=== PATIENT | female | born 1990 | race Caucasian/White ===

== ENCOUNTER 2022-06-18 09:04 | Outpatient (CLI) | payer MEDICAID, SELFPAY ==
[2022-06-18 11:01] LABS: Albumin* 4.4 g/dL (3.3-5.0); Chloride* 104 mmol/L (96-114)
[2022-06-18 11:02] LABS: Sodium* 142 mmol/L (135-149)
[2022-06-18 11:04] LABS: Alanine Aminotransferase* 14 U/L (4-35); Alkaline Phosphatase* 111 U/L (40-150); Aspartate Amino Transferase* 29 U/L (12-35); Bilirubin Total* 0.7 mg/dL (0.1-1.5); Blood Urea Nitrogen* 10 mg/dL (5-24); Carbon Dioxide* 28 mmol/L (20-32); Cholesterol* 228 mg/dL (90-199); Creatinine* 0.9 mg/dL (0.5-1.5); Estimated Glomerular Filt Rate 87 ml/min; Glucose* 94 mg/dL (60-115); Total Protein* 7.3 g/dL (6.0-8.3); Triglycerides* 103 mg/dL (40-149)
[2022-06-18 11:05] LABS: Calcium* 8.8 mg/dL (8.4-10.6); HDL Cholesterol* 40 mg/dL (>=50); LDL Cholesterol Calculated 167 mg/dL (<100)
== END 2022-06-18 09:05 | disposition home or self-care (01) ==
PROVIDERS: PCP Family Medicine; Visit Provider Family Medicine
DX: Z01.419 Encounter for gynecological examination (general) (routine) without abnormal findings (principal); F32.A Depression, unspecified; F41.1 Generalized anxiety disorder; F52.0 Hypoactive sexual desire disorder; Z13.6 Encounter for screening for cardiovascular disorders; Z13.29 Encounter for screening for other suspected endocrine disorder
CPT/HCPCS: 80053; 80061; 84443

== ENCOUNTER 2022-09-28 10:30 | Outpatient (CLI) | payer MEDICAID, SELFPAY ==
--- OUTSIDE RECORDS SUMMARY | 2022-09-28 11:43 | XMS_ITS | Encounter Summary ---
:1990 Author [facility] Address [address] [place] [address] Care Team Providers Name Role Phone Lela Tolbert MD Primary Care Provider Encounter Details Date Type Department Care Team Description 05/20/2022 Telephone [facility] th, Jenelle Andrews G, PA-C & Sports Medicine [address] [facility] [id number] [place] [address] [place] [address] [phone] Social History Tobacco Use Types Packs/Day Years Used Date Smoking Tobacco: Former Cigarettes 0.3 Quit : 05/07/2013 Smokeless Tobacco: Never Alcohol Use Standard Drinks/Week Comments Yes 0 (1 standard drink = 0.6 oz pure alcoho l) Rare Sex Assigned at Date Recorded Not on file documented as of this encounter Nursing Notes Radha De Jesus CMA - 05/21/2022 8:25 AM CDT Received EMG nerve study. Made copy and sent to scan doc. Put paperwork in Dr. Kearney's folder Radha De Jesus CMA - 05/20/2022 4:29 PM CDT Called medical records, they tried to fax to [facility] however it kept failing. Gave [facility] fax to send. documented in this encounter Plan of Treatment Scheduled Procedures Name Priority Associated Diagnoses Date/Time RELEASE CARPAL TUNNEL Bilateral carpal tunnel sy ndrome documented as of this encounter Visit Diagnoses Not on filedocumented in this encounter Care Teams Pbx Inspector Relationship Specialty Start Date End Date Lela Tolbert MD PCP - General Family Practice 08/27/[address] [place] [id number] documented as of this encounter
--- OUTSIDE RECORDS SUMMARY | 2022-09-28 11:43 | XMS_ITS | Encounter Summary ---
:1990 Author Organization [facility] Address [address] [place] [address] Care Team Providers Name Role Phone Lela Tolbert MD Primary Care Provider Reason for Visit Reason Comments Hand Problem Encounter Details Date Type Department Care Team Description 07/28/2022 Office Visit Shantanu Piper, Deb rcare following surgery of the musculoskeletal system (Primary Dx); HDT Hand Therapy OTR/L Left carpal tunnel syndrome [address] [place] [address] [place] [phone] Social History Tobacco Use Types Packs/Day Years Used Date Smoking Tobacco: Former Cigarettes 0.3 Quit : 05/07/2013 Smokeless Tobacco: Never Alcohol Use Standard Drinks/Week Comments Yes 0 (1 standard drink = 0.6 oz pure alcoho l) Rare Sex Assigned at Date Recorded Not on file documented as of this encounter Progress Notes Shantanu Hill, OTR/L - 07/28/2022 1:30 PM CDT Hand Occupational Therapy Evaluation/Plan of Care/Discharge Summary Referring Provider: Diagnosis: Right Carpal Tunnel Syndrome. Orders: Evaluation and treatment per MD post-operative protocol. Date of Onset: 1 Year ago Cause: Unknown Date of Surgery: 07/19/22 Surgery: Right Carpal Tunnel Release. Hand Dominance: Left PMH/Precautions: Refer to EMR for past medical history, medications, and drug allergies. Pt has no past medical history on file. Occupation/Job Duties: Unemployed Leisure/Sports: Crafting, gardening, Functional Limitations: Gripping, pinching, carrying, lifting, work/leisure activities, ADLs. Functional Goals: The patient will be able to manage self-care ADLs with minimal to no difficulty in 2 weeks. The patient will be able to craft with minimal to no difficulty in 4 weeks. SUBJECTIVE: Patient is 9 days post-operative. Pt reports a sharp pain with use throughout her MF and IF, but feels that it may be due to her tight sutures. Pt notes that she also has CTS on her left hand which comes and goes, but the day of surgery the right was worse so they opted to have the surgery on this side. OBJECTIVE: Pain: Resting pain 2/10. Pain with activity 3-6/10. Description/frequency of pain: Achy with use. Location: Incision. Edema: Minimal to no swelling observed at the surgical site. Circumferential measurements in cm: Right 07/27/2022 Left 07/27/2022 Wrist 15.2 15.5 AROM: Right 07/27/2022 Left 07/27/2022 Finger AROM WNL WNL Thumb Opposition Kapandji 10 Kapandji 10 Wrist Extension/Flexion 68/51 67/61 Strength: Deferred secondary to post-operative pain/discomfort. Sensation: The patient reports their sensation is improved from pre-surgical status. Incision/Scar: The incision is closed, no drainage or discharge noted today. TODAY'S TREATMENT INTERVENTION: OT Evaluation CPT 26065 (10 minutes untimed) A Low Complexity Occupational Therapy Evaluation was completed. Occupational profile/history: brief history relating to presenting problem. Assessment: 1-3 performance deficits. Clinical decision making: limited number of treatment options. The patient was educated on the condition, planned therapy intervention, and expectations from treatment. Goals were a collaborative effort between the patient and therapist. Risks, benefits, and alternatives to treatment were explained. Patient or guardian in agreement with care plan. Therapeutic Exercise CPT 72874 (20 minutes) Exercise: Issued handout, instructed in and performed finger and thumb AROM, differential tendon glides and wrist AROM. Patient was also instructed to keep their forearm, elbow, and shoulder moving through theirnormal ROM. Issued handout and instructed in contract associate manager and pinch strengthening exercises to begin three to four weekspost operatively. Incision, Scar, and Edema Management: Sutures were removed today. The patient was instructed in and issued written information on scar mobilization with recommendations to perform 3 times per day for 3-5 minutes as soon as incision is healed. The patient was issued a scar pad to use 8 hours out of 24 hours each day. Written instructions were issued regarding scar pad wear, care and precautions. Compression sleeves were provided for edemamanagement and use with the scar pad. Education: The patient was educated on the surgical procedure, post-operative precautions, expectations from treatment and resuming activity as tolerated. Timed Code Treatment Minutes: 20 Total Treatment Minutes: 30 ASSESSMENT: Symptoms are consistent with status post carpal tunnel release. Functional limitations are due to: pain, edema, decreased strength, and post-operative healing. Rehab prognosis is good to achieve stated goals. Mood, orientation, and behavior were appropriate. No barriers to learning noted today. PLAN: Today???s treatment goals were achieved and the patient is able to progress independently towards their remaining short and long-term goals. The patient will follow up with the referring provider as directed. If no new orders in the next 30 days, discharge hand therapy. The patient was provided with the clinic number and instructed to call with any questions or concerns. Treatment Plan: AROM, strengthening, edema control, scar management, patient education and training. Therapist Signature: Shantanu Hill MS, OTR/L #[id number] Visit # 1 Payor: [facility] / Plan: [facility] PMAP / Product Type: Medicaid / documented in this encounter Plan of Treatment Scheduled Procedures Name Priority Associated Diagnoses Date/Time RELEASE CARPAL TUNNEL Bilateral carpal tunnel sy ndrome documented as of this encounter Visit Diagnoses Diagnosis Aftercare following surgery of the [facility] system - Primary Aftercare following surgery of the [facility] loskeletal system, NEC Left carpal tunnel syndrome Carpal tunnel syndrome documented in this encounter Care Teams Handle Turner Relationship Specialty Start Date End Date Lela Tolbert MD PCP - General Family Practice 08/27/[address] [place] [address] documented as of this encounter
--- OUTSIDE RECORDS SUMMARY | 2022-09-28 11:43 | XMS_ITS | Encounter Summary ---
:1990 Author Organization [facility] Address [address] [place] [address] Care Team Providers Name Role Phone Lela Tolbert MD Primary Care Provider Reason for Referral Procedure/Equipment (Routine) - Incomplete Specialty Diagnoses / Procedures Referred By Contact Refer red To Contact Diagnoses Bilateral carpal tunnel syndrome Aries Kearney MD Procedures Case Request OR - Orthopedic Surgery: LEFT WRIST CARPAL TUNNEL RELEASE [address] [place] [address] Referral ID Status Reason Start Date Expiration Date Visits V isits Requested Authorized [id number] Incomplete 08/31/2022 11/30/2023 1 1 Reason for Visit Reason Comments Post-Op Check Right Encounter Details Date Type Department Care Team Description 08/31/2022 Office Visit Aries Marcum Bilateral carpal Orthopaedics & Sports MD Emily tunnel syndrome Medicine [address] [place] (Primary Dx) [address] [place] [address] [phone] Social History Tobacco Use Types Packs/Day Years Used Date Smoking Tobacco: Former Cigarettes 0.3 Quit : 05/07/2013 Smokeless Tobacco: Never Alcohol Use Standard Drinks/Week Comments Yes 0 (1 standard drink = 0.6 oz pure alcoho l) Rare Sex Assigned at Date Recorded Not on file documented as of this encounter Patient Instructions Patient InstructionsCedric Hendricks - 08/31/2022 8:20 AM CDT Thank you for choosing [facility] for your health care visit today. Aries Kearney MD Orthopedic Surgeon Upper Extremity [facility] Advanced Imaging Scheduling: To schedule advanced imaging including MRI's, CT Scans, Ultrasounds and Fluoroscopic guided injections at a [facility] location please call [phone]. Medication Requests: Prescriptions are not filled on weekends or on weekdays after 3:00 PM. For all medication refills: Request a refill using advisorCONNECTt or contact your pharmacy. [facility] Workers[employer] [address] [place] [address] (Phone) Email: [email or web address] What is Know Your Cost? Know Your Cost is a service for patients and patient/members to call and receive personalized cost information and estimates across our care group. The phone number is (COST) Tuesday - Tuesday 8 AM to 5 PM Release of Information: Radiology/Imaging Health Information Management [address] [address] [place] [address] (Phone) [phone] (Phone) [employer] documented in this encounter Progress Notes Aries Kearney MD - 08/31/2022 8:20 AM CDT Maggie Gonzalez [id number] 1990 Date of Visit: 08/31/22 Orthopedic Hand and Upper Extremity Postop Note Chief Complaint: Postop DOS: 07/19/22, Right CTR Subjective: Maggie Gonzalez is a 32 y.o. female who presents for postoperative evaluation and follow up. Patient does still have some occasional episodes where her hands will go numb. This occurs mostly when her hands are elevated over her head she feels. She reports some soreness within her palm with certain tasks and pressure at the incision. Physical Exam: GENERAL: This is a pleasant 32 y.o. y/o female in no apparent distress. Mood and affect is normal. Alert and oriented x3. PULMONARY: non-labored breathing, symmetrical chest rise, room oxygen CARDIAC: Distal perfusion to the upper extremities is intact, normal rate MUSCULOSKELETAL: Right wrist: There is a well-healed incision within the palm. There is some scar induration and she does have some tenderness to palpation of the scar. She has intact 5/5 APB and opposition strength. Subjective sensation within the median nerve distribution today is intact. Left Wrist: Insp/Palp: Normal to inspection. No swelling. No tenderness with palpation over the wrist. Stability: No obvious instability. Strength: Extensors 5/5. Flexors 5/5. ROM: AROM: Flexion is 70deg, extension is 70 deg Special Tests: Tinels sign is equivocal at the carpal tunnel. Carpal compression test is positive. Left Hand: Insp/Palp: No deformity bilaterally, hands normal to inspection and palpation. No thenar eminence atrophy. No hypothenar eminence atrophy. Strength: Thumb abduction APB 5/5. 1st dorsal interossei 5/5. Fingers: Insp/Palp: No deformity, edema, or masses of the fingers. No tenderness or triggering of the fingers. ROM: Full ROM of the fingers. Electrodiagnostic testin03/26/2022: There is electrophysiologic evidence for mild to moderate median neuropathy on the right and left sides. There is increased onset latencies and peak latencies for the right median sensory nerve latencies. Assessment: Diagnosis and Associated Orders ICD-10-CM 1. Bilateral carpal tunnel syndrome G56.03 Plan: Maggie Gonzalez is recovering after right carpal tunnel release under MAC local. At this point in time I have encouraged Maggie that I do think her exam is appropriate. I think the scar induration in the soreness within her palm we will continue to improve over the next several weeks. I recommend continued scar massage and desensitization. She would like to consider proceeding with scheduling for her left carpal tunnel release at this time. She is unsure as to the timing of this and will plan to call my thread spinner when she has a more firm plan in mind. We would plan for Left carpal tunnel release under MAC local. Patient will plan to reach out to my thread spinner when she decides to pursue the above. A business card was provided today. All questions were invited and answered and the patient is content with the plan of care. documented in this encounter Plan of Treatment Scheduled Orders Name Type Priority Associated Diagnoses Order S [facility] 2019 Novel Coronavirus Microbiology Routine Bilateral carpal E xpected: (COVID-19) tunnel syndrome 08/31/2022, Expires: 2022 Scheduled Procedures Name Priority Associated Diagnoses Date/Time RELEASE CARPAL TUNNEL Bilateral carpal tunnel sy ndrome documented as of this encounter Visit Diagnoses Diagnosis Bilateral carpal tunnel syndrome - Prima ry Carpal tunnel syndrome documented in this encounter Care Teams Cardiovascular Technician Relationship Specialty Start Date End Date Lela Tolbert MD PCP - General Family Practice 08/27/[address] [place] [address] documented as of this encounter
--- OUTSIDE RECORDS SUMMARY | 2022-09-28 11:43 | XMS_ITS | Encounter Summary ---
:1990 Author Organization [facility] Address [address] [place] [address] Care Team Providers Name Role Phone Lela Tolbert MD Primary Care Provider Encounter Details Date Type Department Care Team Description 06/11/2022 Orders Only HIM DEPARTMENT Provider, Molina serrato MD Interface provid er interface provider, [place] [id number] Social History Tobacco Use Types Packs/Day Years Used Date Smoking Tobacco: Former Cigarettes 0.3 Quit : 05/07/2013 Smokeless Tobacco: Never Alcohol Use Standard Drinks/Week Comments Yes 0 (1 standard drink = 0.6 oz pure alcoho l) Rare Sex Assigned at Date Recorded Not on file documented as of this encounter Plan of Treatment Scheduled Procedures Name Priority Associated Diagnoses Date/Time RELEASE CARPAL TUNNEL Bilateral carpal tunnel sy ndrome documented as of this encounter Procedures Procedure Name Priority Date/Time Associated Diagnosis Comme nts EMG SCAN 06/11/2022 Results for thi s procedure are in the resu lts section. documented in this encounter Results EMG SCAN (06/11/2022) Narrative This result has an attachment that is no t available. Interface Provider [employer] documented in this encounter Visit Diagnoses Not on filedocumented in this encounter Care Teams Radio Electronics Officer Relationship Specialty Start Date End Date Lela Tolbert MD PCP - General Family Practice 08/27/[address] [place] [id number] documented as of this encounter
--- OUTSIDE RECORDS SUMMARY | 2022-09-28 11:43 | XMS_ITS | Encounter Summary ---
:1990 [facility] Address [address] [place] [address] Care Team Providers Name Role Phone Lela Tolbert MD Primary Care Provider Encounter Details Date Type Department Care Team Description 07/13/2022 Notes/Orders TRIAries Archer MD Orthopaedics & Sports [address] [facility] [id number] [place] [address] [place] [address] [phone] Social History Tobacco Use Types Packs/Day Years [...] on filedocumented in this encounter Care Teams Supply Chain Technician Relationship Specialty Start Date End Date Lela Tolbert MD PCP - General Family Practice 08/27/[address] [id number] documented as of this encounter
--- OUTSIDE RECORDS SUMMARY | 2022-09-28 11:43 | XMS_ITS | Encounter Summary ---
:[address] [facility] Address [address] [place] [address] Care Team Providers Name Role Phone Lela Tolbert MD Primary Care Provider Encounter Details Date Type Department Care Team Description 05/28/2022 Orders Only HIM DEPARTMENT Provider, Molina serrato MD Interface provid er interface provider, [place] [address] Social History Tobacco Use Types Packs/Day Years [...] Date/Time Associated Diagnosis Comme nts EMG SCAN 05/28/2022 Results for thi s procedure are in the resu lts section. documented in this encounter Results EMG SCAN (05/28/2022) Narrative This result has an attachment that is no t available. Interface Provider [employer] documented in this encounter Visit Diagnoses Not on filedocumented in this encounter Care Teams Human Resources Benefits Administrator Relationship Specialty Start Date End Date Lela Tolbert MD PCP - General Family Practice 08/27/[address] [place] [id number] documented as of this encounter
--- OUTSIDE RECORDS SUMMARY | 2022-09-28 11:43 | XMS_ITS | Encounter Summary ---
:1990 Author Organization [facility] Address [address] [place] [address] Care Team Providers Name Role Phone Lela Tolbert MD Primary Care Provider Reason for Visit Auth/Cert (Routine) Specialty Diagnoses / Procedures Referred By Contact Refer red To Contact Diagnoses Carpal tunnel syndrome on left Procedures LEFT CARPAL TUNNEL RELEASE Referral ID Status Reason Start Date Expiration Date Visits Requ ested Visits Authorized [id number] 1 1 Encounter Details Date Type Department Care Team Description 07/19/2022 Surgery [facility] AMB SURGERY C TR Aries Kearney W, RIGHT CARPAL TUNNEL [id number] [facility] [place] [address] [place] [id number] [facility] [address] [place], [place] [address] (Wo rk) Social History Tobacco Use Types Packs/Day Years Used Date Smoking Tobacco: Former Cigarettes 0.3 Quit : 05/07/2013 Smokeless Tobacco: Never Alcohol Use Standard Drinks/Week Comments Yes 0 (1 standard drink = 0.6 oz pure alcoho l) Rare Sex Assigned at Date Recorded Not on file documented as of this encounter Last Filed Vital Signs Vital Sign Reading Time Taken Comments Blood Pressure 108/73 07/19/2022 9:00 AM CDT Pulse 75 07/19/2022 9:00 AM CDT Temperature 36.3 ??C (97.3 ??F) 07/19/2022 8:55 AM CDT Respiratory Rate 16 07/19/2022 9:00 AM CDT Oxygen Saturation 93% 07/19/2022 9:00 AM CDT Inhaled Oxygen Concentration - - Weight - - Height - - Body Mass Index - - documented in this encounter Medications at Time of Discharge Medication Sig Dispensed Refills Start Date End Date escitalopram (LEXAPRO) 10 Take 10 mg by mouth. 0 03/14/2020 MG tablet fluconazole (DIFLUCAN) 200 Take 200 mg by mouth 0 12/26/2021 MG tablet daily as needed. HYDROcodone-acetaminophen Take 1 Tablet by 12 Tablet 0 07/08 (NORCO) 5-325 MG tablet mouth every 6 hours as needed. sertraline (ZOLOFT) 100 MG Take 100 mg by mouth 0 03/09/2022 tablet daily. documented as of this encounter Progress Notes Barbara Mai RN - 07/15/2022 1:12 PM CDT PPA call attempted via phone to [phone]. Message left with arrival time 0700, NPO guidelines and address. Call back number left for call back to review pre-procedure questions with a nurse. Pt reminded of COVID test on 07/17. .Barbara Mai RN documented in this encounter H&P Notes Aries Kearney MD - 07/19/2022 7:48 AM CDT Surgery Update for Preop History and Physical For 07/19/2022 scheduled procedure Update to H&P includes: Patient and/or family denies any health changes since the H&P This patient has been evaluated by me today and has been found to be a suitable candidate for surgery. We will proceed with the Right side CTR today. This was a change from how the case was scheduled. Patient request. Aries Kearney MD Orthopedic Surgery 07/19/2022 7:48 AM 07/19/2022 Source Note - Aries Kearney MD - 06/29/2022 8:20 AM CDT Maggie Gonzalez [id number] 1990 Date of Visit: 06/29/22 Orthopedic Hand and Upper Extremity Consultation Chief Complaint: Bilateral hand numbness and tingling History of Present Illness: Maggie Gonzalez is a 32 y.o. female who presents for evaluation of her bilateral hands. She states that her hands have become numb and tingly over the last 10 months. She had experience these symptomsthroughout both of her previous pregnancies with resolution after delivery. She describes tingling and numbness within her radial sided digits including the thumb index and middle fingers. It does wakeher from sleep. It makes it hard for her to hold her phone or have her hands over her head. Her right side is more symptomatic than her left. Occupation/Hobbies: Patient is currently unemployed. She has 2 young children. She has previously worked at the [employer]. Past Medical/Surgical History: Past medical, social, family history, medications, and allergies were personally reviewed and as perthe intake form. Physical Exam: GENERAL: This is a very pleasant 32 y.o. y/o female in no apparent distress. Mood and affect is normal. Alert and oriented x3. PULMONARY: non-labored breathing, symmetrical chest rise, room oxygen CARDIAC: Distal perfusion to the upper extremities is intact, normal rate MUSCULOSKELETAL: Right Wrist: Insp/Palp: Normal to inspection. No swelling. No tenderness with palpation over the wrist. Stability: No obvious instability. Strength: Extensors 5/5. Flexors 5/5. ROM: AROM: Flexion is 70deg, extension is 70 deg Special Tests: Tinels sign is negative at the carpal tunnel. Carpal compression test is equivocal. Phalen's test is positive. Right Hand: Insp/Palp: No deformity bilaterally, hands normal to inspection and palpation. No thenar eminence atrophy. No hypothenar eminence atrophy. Strength: Thumb abduction APB 5/5. 1st dorsal interossei 5/5. Fingers: Insp/Palp: No deformity, edema, or masses of the fingers. No tenderness or triggering of the fingers. ROM: Full ROM of the fingers. Skin: Skin warm and dry with no evidence of unusual rashes or suspicious lesions. Neuro: Neurovascularly intact at the affected site. Psych: Mood and affect is normal. Cognition: Alert and oriented x3. Memory is intact. Electrodiagnostic testin03/26/2022: There is electrophysiologic evidence for mild to moderate median neuropathy on the right and left sides. There is increased onset latencies and peak latencies for the right median sensory nerve latencies. Assessment: Diagnosis and Associated Orders ICD-10-CM 1. Carpal tunnel syndrome of right wrist G56.01 Plan: We discussed the patient's candidacy for Left carpal tunnel release under MAC local. I discussed with her continued non operative and operative treatment options. She has failed nighttime bracing and is beginning to have wake full sleep. She would like to proceed with surgical carpal tunnel release. We had originally discussed that she would like to perform a right carpal tunnel release however later she has opted to change her mind and proceed with performing left carpal tunnel release first. We had an extended discussion concerning the diagnosis and prognosis; the treatment goals and choices (alternatives); the limitations and hazards of care; and the importance of therapy. I discussed thebenefits, risks, and complications of surgery in detail, including but not limited to nerve, vessel,tendon damage; possible need for future surgery; risks of persistent or worsening pain, infection, and/or loss of function. Patient has elected to proceed with surgery as above. Physical / hand therapy will be required after surgery to work on ROM and followed by progressive strengthening. All questions were invited and answered to patient satisfaction. Patient was content with the plan of care. CC: Lela Tolbert MD Aries Kearney MD - 07/19/2022 7:47 AM CDT Surgery Update for Preop History and Physical For 07/19/2022 scheduled procedure Update to H&P includes: Patient and/or family denies any health changes since the H&P This patient has been evaluated by me today and has been found to be a suitable candidate for surgery. 07/19/2022 Source Note - Aries Kearney MD - 06/29/2022 8:20 AM CDT Maggie Gonzalez [id number] 1990 Date of Visit: 06/29/22 Orthopedic Hand and Upper Extremity Consultation Chief Complaint: Bilateral hand numbness and tingling History of Present Illness: Maggie Gonzalez is a 32 y.o. female who presents for evaluation of her bilateral hands. She states that her hands have become numb and tingly over the last 10 months. She had experience these symptomsthroughout both of her previous pregnancies with resolution after delivery. She describes tingling and numbness within her radial sided digits including the thumb index and middle fingers. It does wakeher from sleep. It makes it hard for her to hold her phone or have her hands over her head. Her right side is more symptomatic than her left. Occupation/Hobbies: Patient is currently unemployed. She has 2 young children. She has previously worked at the [employer]. Past Medical/Surgical History: Past medical, social, family history, medications, and allergies were personally reviewed and as perthe intake form. Physical Exam: GENERAL: This is a very pleasant 32 y.o. y/o female in no apparent distress. Mood and affect is normal. Alert and oriented x3. PULMONARY: non-labored breathing, symmetrical chest rise, room oxygen CARDIAC: Distal perfusion to the upper extremities is intact, normal rate MUSCULOSKELETAL: Right Wrist: Insp/Palp: Normal to inspection. No swelling. No tenderness with palpation over the wrist. Stability: No obvious instability. Strength: Extensors 5/5. Flexors 5/5. ROM: AROM: Flexion is 70deg, extension is 70 deg Special Tests: Tinels sign is negative at the carpal tunnel. Carpal compression test is equivocal. Phalen's test is positive. Right Hand: Insp/Palp: No deformity bilaterally, hands normal to inspection and palpation. No thenar eminence atrophy. No hypothenar eminence atrophy. Strength: Thumb abduction APB 5/5. 1st dorsal interossei 5/5. Fingers: Insp/Palp: No deformity, edema, or masses of the fingers. No tenderness or triggering of the fingers. ROM: Full ROM of the fingers. Skin: Skin warm and dry with no evidence of unusual rashes or suspicious lesions. Neuro: Neurovascularly intact at the affected site. Psych: Mood and affect is normal. Cognition: Alert and oriented x3. Memory is intact. Electrodiagnostic testin03/26/2022: There is electrophysiologic evidence for mild to moderate median neuropathy on the right and left sides. There is increased onset latencies and peak latencies for the right median sensory nerve latencies. Assessment: Diagnosis and Associated Orders ICD-10-CM 1. Carpal tunnel syndrome of right wrist G56.01 Plan: We discussed the patient's candidacy for Left carpal tunnel release under MAC local. I discussed with her continued non operative and operative treatment options. She has failed nighttime bracing and is beginning to have wake full sleep. She would like to proceed with surgical carpal tunnel release. We had originally discussed that she would like to perform a right carpal tunnel release however later she has opted to change her mind and proceed with performing left carpal tunnel release first. We had an extended discussion concerning the diagnosis and prognosis; the treatment goals and choices (alternatives); the limitations and hazards of care; and the importance of therapy. I discussed thebenefits, risks, and complications of surgery in detail, including but not limited to nerve, vessel,tendon damage; possible need for future surgery; risks of persistent or worsening pain, infection, and/or loss of function. Patient has elected to proceed with surgery as above. Physical / hand therapy will be required after surgery to work on ROM and followed by progressive strengthening. All questions were invited and answered to patient satisfaction. Patient was content with the plan of care. CC: Lela Tolbert MD documented in this encounter Procedure Notes Aries Kearney MD - 07/19/2022 8:15 AM CDT OPERATIVE NOTE Date of procedure: 07/19/2022 Pre op diagnosis: Right carpal tunnel syndrome Post op diagnosis: Right carpal tunnel syndrome Procedure: Right carpal tunnel release Surgeon: Aries Kearney MD Assistants: KELSEY Samuels Anesthesia: MAC plus local Findings: Complete division of TCL visualized Estimated blood loss: 2 ml Specimen: None Complications: None Disposition: Discharge to home Operative Indications: This is a patient with long-standing right carpal tunnel symptoms who has failed non-surgical treatment. Electrodiagnostics preoperatively confirm the diagnosis of carpal tunnel syndrome. After thorough explanation of the risks and benefits of surgery, including injury to nearby nerves and vessels as well as an incomplete resolution of symptoms, they have acknowledged understanding and agreed to proceed with the stated procedure. Surgical technique: The patient was met in the holding area. The correct side and site was confirmedand consent forms signed. The patient was brought to the operative room. The appropriate extremity was positioned on a hand table and a forearm tourniquet was applied. The extremity was then prepped and draped in standard sterile fashion. Adequate MAC anesthesia was administered. We called for a timeout to confirm laterality, no preoperative antibiotics were indicated. A standard longitudinal carpal tunnel incision was marked on the skin starting at the distal wrist crease ulnar to palmaris in line with the third webspace. An esmarch was used to exsanguinate the limb and the tourniquet was inflatedto 250 mm Hg. Skin incision was made as described. Blunt dissection was carrried out down to the palmar fascia and self-retainers were placed proximally and distally. A #15 blade was then used to sharply divide the palmar fascia in line with the skin incision exposing the transverse carpal ligament. The ligament was also sharply divided with a #15 blade under direct visualization from proximal to distal. The distal extent of the ligament was carefully released with visualization of the midpalmar fat. The remaining tight ligament and fascia proximally was released with curved Metzenbaum scissors. A double skin hook was placed under the radial leaflet of the ligament and blunt spreading of tenosynovial adhesions was performed. The tourniquet was deflated and the wound was copiously irrigated. Bleeding points were cauterized with bipolar electrocautery. The skin was closed with interrupted 4-0 Nylon sutures and a sterile bulky dressing was applied. The patient was transferred to Recovery area in stable condition tolerating the procedure well. Post op plan: The patient will follow up in 7-10 days for wound evaluation and suture removal as appropriate. They are instructed to maintain their bandage for a minimum of 3 days after which it can beremoved. Encourage continued full ROM of fingers/thumb immediately postoperatively. Aries Kearney MD 07/19/2022, 8:43 AM documented in this encounter Plan of Treatment Scheduled Procedures Name Priority Associated Diagnoses Date/Time RELEASE CARPAL TUNNEL Bilateral carpal tunnel sy ndrome documented as of this encounter Procedures Procedure Name Priority Date/Time Associated Diagnosis Comme nts RELEASE CARPAL TUNNEL 07/19/2022 8:51 AM CDT Carpal tu nnel syndrome on left documented in this encounter Visit Diagnoses Diagnosis Carpal tunnel syndrome on left - Primary Carpal tunnel syndrome Carpal tunnel syndrome on left Carpal tunnel syndrome documented in this encounter Admitting Diagnoses Diagnosis Carpal tunnel syndrome on left Carpal tunnel syndrome documented in this encounter Administered Medications Inactive Administered Medications - up to 3 most recent administrations Medication Order MAR Action Action Date Dose Rate Site acetaminophen (TYLENOL) tablet Given 07/19/2022 7:35 AM CDT 1,00 0 mg 1,000 mg 1,000 mg, Oral, ONCE, On Tue07/19/22 at 0730, For 1 dose, Give in pre-op., Pre-op dextrose 5 % infusion at 250 mL/hr, ONCE PRN, Other, for nausea if all other options have failed and patient is not diabetic., Starting on Tue07/19/22 at 0 731, For 1 dose, PACU/Recovery fentaNYL (SUBLIMAZE) injection 25-50 mcg 25-50 mcg, Intravenous, [id number], Other, Moderate to Severe Pain (pain score 5 and above) in the immediate postop period when faster on-s et, short acting agent is desired., Starting on Tue07/19/22 at 073 1, Until Tue07/19/22 at 1229, Administer every 5 minutes as needed, to a maximum cumulative dose of 250 mcg. For patients with a regional, spinal, or local anesth etic, may give for anticipated pain as the anesthetic wears off., PACU/Recovery fentaNYL (SUBLIMAZE) injection 25-50 mcg 25-50 mcg, Intravenous, [id number], Pain, Procedure, Starting on Tue07/19/22 at 0903, Until Tue07/19/22 at 1229, For 2 doses, As directed by anesthesiologist, Pre-op hydrALAZINE (APRESOLINE) injection 5 mg 5 mg, Intravenous, Q10MIN PRN, Other, Hi gh Blood Pressure, MAX 4 doses, hold for HR <50, Starting on Tue07/19/22 at 0731, Un til Tue07/19/22 at 1229, For 4 doses, Call Anesthesiologist before administration. Give as direct ed by Anesthesiologist., PACU/Recovery HYDROmorphone (DILAUDID) injection 0.2-0 .3 mg 0.2-0.3 mg, Intravenous, Q10MIN PRN, Pain, 0.2 mg IV f or Mild to Moderate pain (pain score 1-5), 0.3 mg IV for Moderate to Severe pain (pain score 6 and above) in the immediate postop period when longer acting agent is desired., Starting on Tue07/19/22 at 0731, Until Tue07/19/22 at 1229, Maximum cu mulative dose is 2 mg in PACU, call Anesthesiologist if additional dosage neede d. For patients with a regional, spinal, or local anesthetic, may give for an ticipated pain as the anesthetic wears off., PACU/Recovery labetalol (NORMODYNE) injection 5 mg 5 mg, Intravenous, Q10MIN PRN, Other, Hi gh Blood Pressure, MAX 5 doses, hold for HR <50, Starting on Tue07/19/22 at 0731, Un til Tue07/19/22 at 1229, For 5 doses, Call Anesthesiologist before administration. Give as direct ed by Anesthesiologist., PACU/Recovery lactated ringers infusion Started 07/19/2022 7:50 AM CDT 25 mL/hr 25 mL/hr 25 mL/hr, Intravenous, CONTINUOUS, Starting on Tue07/19/22 at 0730, Administer on all preop surgery patients, ages 12 and older, unless specified differently in the Protocol for Preop Initiation of IV fluids Order Set., Pre-op lidocaine-epinephrine 1 %-1:[id number] Given 07/19/2022 8:25 AM CDT 7 mL Right Wrist injection ONCE PRN, Starting on Tue07/19/22 at 0757, Until Tue07/19/22 at 1229, Intra-op meperidine (DEMEROL) injection 12.5 mg 12.5 mg, Intravenous, [id number], Shiverin g, Starting on Tue07/19/22 at 0731, Until Tue07/19/22 at 1229, For 2 doses, Maximu m cumulative dose is 25 mg. Do not give to patients receiving MAO inhibitors (e.g. phenelzine (NA RDIL), tranylcypromine (PARNATE), selegiline (ELDEPRYL))., PACU/Recovery midazolam (VERSED) injection 1-2 mg 1-2 mg, Intravenous, [id number], Sedation, Anxiety, Proc edure, Starting on Tue07/19/22 at 0903, Until Tue07/19/22 at 1229, As directe d by anesthesiologist MAX Dose 2mg, Pre-op naloxone (NARCAN) injection 0.08 mg 0.08 mg, Intravenous, PRN, Other, For respiratory rate less than 8/minute or patient difficult to arouse, Starting on Tue07/19/22 at 0731, Until Tue07/19/22 at 1229, May repeat every 3 minutes or until patient is r esponsive to physical stimulation and is able to take deep bethany aths. Maximum cumulative dose is 0.4 mg (1 mL). Continue to observe; if no response after administering total dose of 0.4 mg notify anesthesiologist STAT., PACU/Recovery naloxone (NARCAN) injection 0.4 mg 0.4 mg, Intravenous, ONCE PRN, Opioid Re versal, Starting on Tue07/19/22 at 0731, Until Tue07/19/22 at 1229, For 1 dose, F or imminent respiratory arrest. Notify MD if naloxone is given., PACU/Recovery ondansetron (ZOFRAN) injection 4 mg 4 mg, Intravenous, Q4H PRN, Nausea, Vomiting, Starting on Tue07/19/22 at 0731, Until Tue07/19/22 at 1229, If multiple medications are ordered for nausea or vomiting - administer in the following priority based on medications ordered, effectiveness and availability: ondanset rosenda (ZOFRAN) > prochlorPERAZINE (COMPAZINE) > diphenhydrAMINE (BENADRYL) > hydrOXYzi ne HCl (VISTARIL)> ePHEDrine > scopolamine (TRANSDERM-SCOP)., PACU/Recovery sodium chloride 0.9% injection 10 mL 10 mL, Intravenous, PRN SEE ADMIN INSTRUCTIONS, Line P atency, Starting on Tue07/19/22 at 0707, Until Tue07/19/22 at 1229, Pre-op documented in this encounter Active and Recently Administered Medications Times are shown in CDT. Scheduled Medication Order 07/17/2022 07/18/2022 07/19/2022 acetaminophen (TYLENOL) tablet 1,000 mg (COMPLETED) 0735 (Given - Provider: Chasidy Tyson, HEIDI) 1,000 mg, Oral, ONCE, On Tue07/19/22 at 0730, For 1 dose, Give in pre-op., Pre-op NO pre-op antibiotics needed 072 6 (Noted - Provider: Chasidy Tyson, HEIDI) ONCE, On Tue07/19/22 at 0730, For 1 dose, Pre-op Continuous Medication Order 07/17/2022 07/18/2022 07/19/2022 lactated ringers infusion 0750 ( Started - Provider: Chasidy Tyson, HEIDI) 25 mL/hr, Intravenous, CONTINUOUS, Start ing on Tue07/19/22 at 0730, Administer on all preop surgery patients, ages 12 and older, unless specified differently in the Protocol for Preop Initiation of IV fluids Order Set., Pre-op PRN Medication Order 07/17/2022 07/18/2022 07/19/2022 dextrose 5 % infusion at 250 mL/hr, ONCE PRN, Other, for nause a if all other options have failed and patient is not diabetic., Starting on Tue07/19/22 at 0731, For 1 dose, PACU/Recovery fentaNYL (SUBLIMAZE) injection 25-50 mcg 25-50 mcg, Intravenous, [id number], Other, Moderate to Severe Pain (pain score 5 and above) in the immediate postop period when faster on-set, short acting agent is desired., Starting on Tue07/19/22 at 07 31, Until Tue07/19/22 at 1229, Administe r every 5 minutes as needed, to a maximum cumulative dose of 250 mcg. For patients with a regional, spinal, or local anesthetic, may give for anticipated pain as the anesthetic wears off., PACU/Recovery fentaNYL (SUBLIMAZE) injection 25-50 mcg 25-50 mcg, Intravenous, [id number], Pain, Procedure, Starting on Tue07/19/22 at 0903, Until Tue07/19/22 at 1229, For 2 doses, As directed by anesthesiologist, Pre-op hydrALAZINE (APRESOLINE) injection 5 mg 5 mg, Intravenous, Q10MIN PRN, Other, Hi gh Blood Pressure, MAX 4 doses, hold for HR <50, Starting on Tue07/19/22 at 0731, Until Tue07/19/22 at 1229, For 4 doses, Call Anesthesiologist before administ ration. Give as directed by Anesthesiologist., PACU/Recovery HYDROmorphone (DILAUDID) injection 0.2-0.3 mg 0.2-0.3 mg, Intravenous, Q10MIN PRN, Daniel n, 0.2 mg IV for Mild to Moderate pain (pain score 1-5), 0.3 mg IV for Moderate to Severe pain (pain score 6 and above) in the immediate postop period when longer acting agent is desired., Starting on M on 07/19/22 at 0731, Until Tue07/19/22 at 1229, Maximum cumulative dose is 2 mg in PACU, call Anesthesiologist if additional dosage needed. For patients with a reg ional, spinal, or local anesthetic, may give for anticipated pain as the anesthetic wears off., PACU/Recovery labetalol (NORMODYNE) injection 5 mg 5 mg, Intravenous, Q10MIN PRN, Other, Hi gh Blood Pressure, MAX 5 doses, hold for HR <50, Starting on Tue07/19/22 at 0731, Until Tue07/19/22 at 1229, For 5 doses, Call Anesthesiologist before administ ration. Give as directed by Anesthesiologist., PACU/Recovery lidocaine-epinephrine 1 %-1:[id number] injection 0825 (Given - Provider: Aries Kearney MD) ONCE PRN, Starting on Tue07/19/22 at 0757, Until Tue07/19/22 at 1229, Intra-op meperidine (DEMEROL) injection 12.5 mg 12.5 mg, Intravenous, [id number], Shiverin g, Starting on Tue07/19/22 at 0731, Until Tue07/19/22 at 1229, For 2 doses, Maximum cumulative dose is 25 mg. Do not give to patients receiving MAO inhibitors (e. g. phenelzine (NARDIL), tranylcypromine (PARNATE), selegiline (ELDEPRYL))., PACU/Recovery midazolam (VERSED) injection 1-2 mg 1-2 mg, Intravenous, [id number], Sedation, Anxiety, Procedure, Starting on Tue07/19/22 at 0903, Until Tue07/19/22 at 1229, As directed by anesthesiologist MAX Dose 2mg, Pre-op naloxone (NARCAN) injection 0.08 mg 0.08 mg, Intravenous, PRN, Other, For re spiratory rate less than 8/minute or patient difficult to arouse, Starting on Tue07/19/22 at 0731, Until Tue07/19/22 at 1229, May repeat every 3 minutes or until patient is responsive to physical stimul ation and is able to take deep breaths. Maximum cumulative dose is 0.4 mg (1 mL). Continue to observe; if no response after administering total dose of 0.4 mg notify anesthesiologist STAT., PACU/Recovery naloxone (NARCAN) injection 0.4 mg 0.4 mg, Intravenous, ONCE PRN, Opioid Re versal, Starting on Tue07/19/22 at 0731, Until Tue07/19/22 at 1229, For 1 dose, For imminent respiratory arrest. Notify MD if naloxone is given., PACU/Recovery ondansetron (ZOFRAN) injection 4 mg 4 mg, Intravenous, Q4H PRN, Nausea, Vomi ting, Starting on Tue07/19/22 at 0731, Until Tue07/19/22 at 1229, If multiple medications are ordered for nausea or vomiting - administer in the following priorit y based on medications ordered, effectiv eness and availability: ondansetron (ZOFRAN) > prochlorPERAZINE (COMPAZINE) > diphenhydrAMINE (BENADRYL) > hydrOXYzine HCl (VISTARIL)> ePHEDrine > scopolamine (TRANSDERM-SCOP)., PACU/Recovery sodium chloride 0.9% injection 10 mL 10 mL, Intravenous, PRN SEE ADMIN INSTRU CTIONS, Line Patency, Starting on Tue07/19/22 at 0707, Until Tue07/19/22 at 1229, Pre-op documented in this encounter Care Teams Chick Grader Relationship Specialty Start Date End Date Lela Tolbert MD PCP - General Family Practice 08/27/13 [address] [place] [address] documented as of this encounter
--- OUTSIDE RECORDS SUMMARY | 2022-09-28 11:43 | XMS_ITS | Encounter Summary ---
:1990 [facility] Address [address] [place] [address] Care Team Providers Name Role Phone Lela Tolbert MD Primary Care Provider Reason for Visit Reason Comments Surgery Scheduling Encounter Details Date Type Department Care Team Description 06/29/2022 Telephone TRIA WhiteAries Infante Surger y Scheduling Orthopaedics & Sports MD Medicine [address] [place] [id number] [place] [phone] [place] [address] (Wo rk) Social History Tobacco Use Types Packs/Day Years Used Date Smoking Tobacco: Former Cigarettes 0.3 Quit : 05/07/2013 Smokeless Tobacco: Never Alcohol Use Standard Drinks/Week Comments Yes 0 (1 standard drink = 0.6 oz pure alcoho l) Rare Sex Assigned at Date Recorded Not on file documented as of this encounter Nursing Notes Brenda Green - 07/02/2022 8:46 AM CDT FYI: Maggie is going to schedule a pre-op with her clinic and call me if she has any trouble getting in. She was given the pre-op fax number since she will be going to [facility]. Brenda Green 8:52 AM 07/02/2022 Brenda Green - 06/29/2022 3:18 PM CDT Called and scheduled Maggie for her left hand carpal tunnel release. Orginially she was going to do her right hand first but states she is left handed and currenly unemployed so she wanted to do that laterality first even though her right wrist hurts more. I discussed this with Dr. Kearney and he states that is ok. All appointments scheduled, no PA needed and packet mailed. Brenda Green 3:19 PM 06/29/2022 documented in this encounter Plan of Treatment Scheduled Procedures Name Priority Associated Diagnoses Date/Time RELEASE CARPAL TUNNEL Bilateral carpal tunnel sy ndrome documented as of this encounter Visit Diagnoses Not on filedocumented in this encounter Care Teams Copper Miner Blasting Relationship Specialty Start Date End Date Lela Tolbert MD PCP - General Family Practice 08/27/[address] [place] [address] documented as of this encounter
--- OUTSIDE RECORDS SUMMARY | 2022-09-28 11:43 | XMS_ITS | Encounter Summary ---
:1990 Author Organization [facility] Address [address] [place] [address] Care Team Providers Name Role Phone Lela Tolbert MD Primary Care Provider Reason for Visit Reason Comments Carpel Tunnel - Bilateral Encounter Details Date Type Department Care Team Description 05/20/2022 Office Visit TRI Jenelle Starkey Bilatera l carpal Orthopaedics & Sports SAMEER tunnel syndrome Medicine [address] [place] (Primary Dx) [address] [place], [place] [phone] Social History Tobacco Use Types Packs/Day Years Used Date Smoking Tobacco: Former Cigarettes 0.3 Quit : 05/07/2013 Smokeless Tobacco: Never Alcohol Use Standard Drinks/Week Comments Yes 0 (1 standard drink = 0.6 oz pure alcoho l) Rare Sex Assigned at Date Recorded Not on file documented as of this encounter Progress Notes Jenelle Schwartz PA-C - 05/20/2022 12:00 AM CDT NAME: ELZBIETA RODRÍGUEZ CSN: [id number] CLINIC NOTE DATE OF SERVICE: 05/20/2022 : 1990 REASON FOR VISIT: Bilateral hand pain. HISTORY OF PRESENT ILLNESS: Patient is a 32-year-old female, who comes in today for bilateral hip pain going on since September of 2021. The patient is left handed. She works at the [employer]. She states that she started having pain in September. Started noticing numbness and tingling in the right hand greater than left. It would be in the thumb, index, and middle finger. She would get burning, tingling, and pain at night. It would disrupt her sleep. During the day, it is not so bad. She has been wearing wrist braces, but it still was bothersome. She had done healthcare translator, ice, anti- inflammatories, and bracing without much relief. Eventually, she got an EMG, which was done [facility] at [facility], and she tells me that it showed that she has bilateral carpal tunnel, right greater than left. She states the right is definitely much worse. Unfortunately, EMG was not obtained prior to this visit, but is being faxed to our location. The patient states she has done all the conservative stuff and she is interested in looking at surgery as a final option. PAST MEDICAL/SOCIAL/SURGICAL/FAMILY/REVIEW OF SYSTEMS/MEDICATIONS: Reviewed per the intake sheet andthe EMR. ALLERGIES: REVIEWED PER THE INTAKE SHEET AND THE EMR. PHYSICAL EXAM: Inspection of the right hand demonstrates no atrophy. She has good coal or ore controller strength withadequate range of motion of her fingers and her wrist. She has a negative Tinel's over the median nerve, but positive carpal compression test and Ynes's. Her fingers are sensate today. There is no neurological deficits on exam. Her left hand, she has full active range of motion of her fingers and her wrist without any associated atrophy. No tenderness over the thenar eminence. Negative Tinel'sover the median nerve. Carpal compression test reproduces symptoms. Her neurovascular exam was intact distally today. IMPRESSION: Bilateral carpal tunnel. PLAN: We will obtain her EMG study and from there refer her to Dr. Aries Kearney to discuss bilateral carpal tunnel release. The patient was happy with this. All of her questions were answered. JENELLE SCHWARTZ PA-C EMS/AQS /[id number] documented in this encounter Plan of Treatment Scheduled Procedures Name Priority Associated Diagnoses Date/Time RELEASE CARPAL TUNNEL Bilateral carpal tunnel sy ndrome documented as of this encounter Visit Diagnoses Diagnosis Bilateral carpal tunnel syndrome - Prima ry Carpal tunnel syndrome documented in this encounter Care Teams Wrapper Stripper Relationship Specialty Start Date End Date Lela Tolbert MD PCP - General Family Practice 08/27/13 [address] [place] [address] documented as of this encounter
--- OUTSIDE RECORDS SUMMARY | 2022-09-28 11:43 | XMS_ITS | Clinical Summary ---
:1990 Author Organization [facility] Address [address] [place] [address] Care Team Providers Name Role Phone Lela Tolbert MD Primary Care Provider Source Comments You are receiving this document as you are listed as the primary care provider,follow-up provider, or the patient has been referred to you for consultation.This is in compliance with the Medicare and Medicaid EHR Incentive Program,which states Providers who transition their patient to another setting of careor provider of care or refers their patient to another provider of care shouldprovide summarycare record for each transition of care or referral. [facility] Allergies No known active allergies Medications Medication Sig Dispensed Refills Start Date End Date Status sertraline (ZOLOFT) 100 Take 100 mg by 0 03/09/2022 Active MG tablet mouth daily. fluconazole (DIFLUCAN) Take 200 mg by 0 12/26/2021 Active 200 MG tablet mouth daily as needed. escitalopram (LEXAPRO) Take 10 mg by 0 03/14/2020 Active 10 MG tablet mouth. HYDROcodone-acetaminoph Take 1 Tablet by 12 Tablet 0 2 Active en (NORCO) 5-325 MG mouth every 6 tablet hours as needed. Active Problems Problem Noted Date Bilateral carpal tunnel syndrome 08/31/2022 Overview: Added automatically from request for huber pittman [id number] Carpal tunnel syndrome on left 06/29/2022 Overview: Added automatically from request for huber pittman [id number] Encounters Date Type Specialty Care Team Description 08/31/2022 Office Visit Orthopedics Aries Kearney Bilateral ca rpal tunnel MD Emily syndrome (Prima ry Dx) 08/24/2022 Notes/Orders Orthopedics Aries Kearney MD 07/28/2022 Office Visit Hand Therapy Shantanu Hill R, Aftercare f [facility]on [facility] surgery of the musculoskeletal system (Primary Dx); OTR/L Left carpal rupal juliana syndrome 07/19/2022 Surgery General Surgery Aries Kearney RIGHT CAR PAL TUNNEL MD Emily RELEASE 07/19/2022 Anesthesia Event General Surgery Vivek Macedo MD 07/19/2022 Hospital Encounter General Surgery Aries Kearney MD 07/17/2022 Lab Visit Laboratory Carpal tunnel s yndrome on left 07/13/2022 Notes/Orders Orthopedics Aries Kearney MD 06/29/2022 Office Visit Orthopedics Aries Kearney Carpal tunne l syndrome of right wrist (Primary Dx); MD Emily Carpal tunnel s yndrome on left 06/29/2022 Telephone Orthopedics Aries Kearney Surgery Zofia Diaz MD from Last 3 Months Immunizations Name Administration Dates Next Due DTP 04/30/1994, 04/27/1991, 1989, 1989, 1989 HepB Ped/Adol (0-18 yrs) 02/05/2000, 09/04/1999, 07/30/1999 Hib (HbOC) 10/20/1990 MMR 07/30/1999, 10/20/1990 OPV, Trivalent (Orimune or tOPV) 04/30/1994, 04/27/1991, 08/1989, 1989 Tdap 05/14/2010 Varicella 08/03/1999 (Deferred: Immune by Disease) Social History Tobacco Use Types Packs/Day Years Used Date Smoking Tobacco: Former Cigarettes 0.3 Quit : 05/07/2013 Smokeless Tobacco: Never Alcohol Use Standard Drinks/Week Comments Yes 0 (1 standard drink = 0.6 oz pure alcoho l) Rare Sex Assigned at Date Recorded Not on file Last Filed Vital Signs Vital Sign Reading Time Taken Comments Blood Pressure 112/67 07/19/2022 9:38 AM CDT Pulse 70 07/19/2022 9:38 AM CDT Temperature 36.3 ??C (97.3 ??F) 07/19/2022 8:55 AM CDT Respiratory Rate 16 07/19/2022 9:38 AM CDT Oxygen Saturation 95% 07/19/2022 9:38 AM CDT Inhaled Oxygen Concentration - - Weight 68.9 kg (152 lb) 06/29/2022 8:24 AM CDT Height 154.9 cm (5' 1) 06/29/2022 8:24 AM CDT Body Mass Index 28.72 06/29/2022 8:24 AM CDT Plan of Treatment Scheduled Procedures Name Priority Associated Diagnoses Date/Time RELEASE CARPAL TUNNEL Bilateral carpal tunnel sy ndrome Health Maintenance Due Date Last Done Comments COVID-19 Vaccine (#1) 1990 Adult Preventive Visit 2007 07/30/1999, 04/30/1994 Cervical Cancer Screening 05/31/2013 05/30/2013 Due Influenza (#1) 2022 08/19/2020, 08/15/2019 DTaP/Tdap/Td (9 - Tdap) 06/15/2029 06/15/2019, 05/30/2018, 05/14/2010, Additional history exists Zoster/Shingles (1 of 2) 2039 Hib Completed 10/20/1990 IPV (Polio) Completed 04/30/1994, 04/27/1991, 1989, Additional history exists HepB Completed 02/05/2000, 09/04/1999, 07/30/1999 HIV Screening (Preventive Completed 04/24/2012 (Completed) Services) Hep C Screening (Preventive Completed 04/24/2021 (Complete d) Services) HPV Vaccine Aged Out No longer eligib le based on patient 's age to complete this topic HepA Aged Out No longer eligib le based on patient 's age to complete this topic MCV4 Aged Out No longer eligib le based on patient 's age to complete this topic Pneumococcal Aged Out No longer eligib le based on patient 's age to complete this topic Procedures Procedure Name Priority Date/Time Associated Comments Diagnosis RELEASE CARPAL TUNNEL 07/19/2022 8:51 AM Carpal tunnel CDT syndrome on left 2018 NOVEL Routine 07/17/2022 10:16 Carpal tunnel Results fo r this CORONAVIRUS AM CDT syndrome on left procedure a re in the results section. from Last 3 Months Results 2019 Novel Coronavirus (COVID-19) (07/17/2022 10:16 AM CDT) [facility] Method Time Signature COVID-19 Not Not 07/18/2022 [facility] Interpretation Detected Detected 12:18 AM CENTRAL LAB CDT Source Nares, left 07/18/2022 [facility] and right 12:18 AM CENTRAL LAB CDT Specimen Anatomical Collection Method Collection Time Receive d Time (Source) Location / / Volume Laterality Swab (Source Non-blood 07/17/2022 10:16 07/17/2022 Required) Collection / AM CDT 10:25 AM CDT Unknown Narrative [facility] - 07/18/2022 12:18 AM CDT Test performed by Manager Patient Mediated Amplification. TMA has been shown to be equivalent to commercial real-time PCR t ests. This test has been authorized by the FDA under Emergency Use Authorization (E UA) for use by authorized laboratories. Aries Kearney MD LAB_1 Performing Organization Address City/State/ZIP Code Phon e Number [facility] [address] [place] [phone] from Last 3 Months Insurance Payer Benefit Plan / Subscriber ID Effective Dates Phone Addre ss Type Group [facility] [id number] 2021-Present [phone] CLAIMS Medicaid [address] [place] [address] (Home) [place] [phone] [id number] (Work) Maggie Gonzalez Personal/Family Self [address] (Home) [place] [id number] Maggie Gonzalez Personal/Family Self [address] (Home) [place] [id number] Advance Directives Latest Code Status on File Code Status Date Activated Date Inactivated Comments Full Code 07/19/2022 7:50 AM 07/19/2022 12:34 PM Care Teams [employer] Certified Network Professional Relationship Specialty Start Date End Date Lela Tolbert MD PCP - General Family Practice 08/27/[address] [place] [address]
--- OUTSIDE RECORDS SUMMARY | 2022-09-28 11:43 | XMS_ITS | Encounter Summary ---
:1990 Author Organization [facility] Address [address] [place] [address] Care Team Providers Name Role Phone Lela Tolbert MD Primary Care Provider Reason for Visit Auth/Cert (Routine) Specialty Diagnoses / Procedures Referred By Contact Refer red To Contact Diagnoses Carpal tunnel syndrome on left Procedures LEFT CARPAL TUNNEL RELEASE Referral ID Status Reason Start Date Expiration Date Visits Requ ested Visits Authorized [id number] 1 1 Encounter Details Date Type Department Care Team Description 07/19/2022 Hospital Encounter [facility]B SURGERY C TR Aries Kearney W, [address] [place] [address] [place] [phone] [facility] [address] [place], [place] [address] (Wo rk) Social History [...] CDT PPA call attempted via phone to [phone]. Message left with arrival time 0700, NPO [...] - 06/29/2022 8:20 AM CDT Maggie Gonzalez [id number] 1990 Date of Visit: 06/29/22 Orthopedic Hand [...] children. She has previously worked at the [id number]. Past Medical/Surgical History: Past medical, social, family [...] - 06/29/2022 8:20 AM CDT Maggie Gonzalez [id number] 1990 Date of Visit: 06/29/22 Orthopedic Hand [...] children. She has previously worked at the [employer]. Past Medical/Surgical History: Past medical, social, family [...] on left - Primary Carpal tunnel syndrome documented in this encounter [...] (SUBLIMAZE) injection 25-50 mcg 25-50 mcg, Intravenous, [id number], Other, Moderate to Severe Pain (pain score [...] (SUBLIMAZE) injection 25-50 mcg 25-50 mcg, Intravenous, [id number], Pain, Procedure, Starting on Tue07/19/22 at 0903, [...] IV fluids Order Set., Pre-op lidocaine-epinephrine 1 %-1:[id number] Given 07/19/2022 8:25 AM CDT 7 mL Right Wrist injection ONCE PRN, Starting on Tue07/19/22 at 0757, Until Tue07/19/22 at 1229, Intra-op meperidine (DEMEROL) injection 12.5 mg 12.5 mg, Intravenous, [id number], Shiverin g, Starting on Tue07/19/22 at 0731, Until Tue07/19/22 at 1229, For 2 doses, Maximu m cumulative dose is 25 mg. Do not give to patients receiving MAO inhibitors (e.g. phenelzine (NA RDIL), tranylcypromine (PARNATE), selegiline (ELDEPRYL))., PACU/Recovery midazolam (VERSED) injection 1-2 mg 1-2 mg, Intravenous, [id number], Sedation, Anxiety, Proc edure, Starting on Tue07/19/22 [...] 072 6 (Noted - Provider: Chasidy Tyson, RN) ONCE, On Tue07/19/22 at 0730, For 1 [...] (SUBLIMAZE) injection 25-50 mcg 25-50 mcg, Intravenous, [id number], Other, Moderate to Severe Pain (pain score [...] (SUBLIMAZE) injection 25-50 mcg 25-50 mcg, Intravenous, [id number], Pain, Procedure, Starting on Tue07/19/22 at 0903, [...] as directed by Anesthesiologist., PACU/Recovery lidocaine-epinephrine 1 %-1:[id number] injection 0825 (Given - Provider: Aries Kearney MD) ONCE PRN, Starting on Tue07/19/22 at 0757, Until Tue07/19/22 at 1229, Intra-op meperidine (DEMEROL) injection 12.5 mg 12.5 mg, Intravenous, [id number], Shiverin g, Starting on Tue07/19/22 at 0731, Until Tue07/19/22 at 1229, For 2 doses, Maximum cumulative dose is 25 mg. Do not give to patients receiving MAO inhibitors (e. g. phenelzine (NARDIL), tranylcypromine (PARNATE), selegiline (ELDEPRYL))., PACU/Recovery midazolam (VERSED) injection 1-2 mg 1-2 mg, Intravenous, [id number], Sedation, Anxiety, Procedure, Starting on Tue07/19/22 at [...] Pre-op documented in this encounter Care Teams Socket Welder Helper Relationship Specialty Start Date End Date Lela Tolbert MD PCP - General Family Practice 08/27/13 [address] [place], [place] [address] documented as of this encounter
--- OUTSIDE RECORDS SUMMARY | 2022-09-28 11:43 | XMS_ITS | Encounter Summary ---
:1990 Author Organization [facility] Address [address] [place] [address] Care Team Providers Name Role Phone Lela Tolbert MD Primary Care Provider Reason for Referral Procedure/Equipment (Routine) - Incomplete Specialty Diagnoses / Procedures Referred By Contact Refer red To Contact Diagnoses Carpal tunnel syndrome on left Eligio Kearney MD Procedures Case Request OR - Orthopedic Surgery: LEFT CARPAL TUNNEL RELEASE [address] [facility] [address] [place] [address] Referral ID Status Reason Start Date Expiration Date Visits V isits Requested Authorized [id number] Incomplete 06/29/2022 09/28/2023 1 1 Reason for Visit Reason Comments CONSULT Bilateral carpal tunnel, wan ts to talk about surgery Encounter Details Date Type Department Care Team Description 06/29/2022 Office Visit Eligio Marcum Carpal tu nnel syndrome of right wrist (Primary Dx); Orthopaedics & Sports MD Emily Carpal tunnel syndrome on left Medicine [address] [facility] [address] [facility] [address] [place] [address] [phone] Social History Tobacco Use Types Packs/Day Years Used Date Smoking Tobacco: Former Cigarettes 0.3 Quit : 05/07/2013 Smokeless Tobacco: Never Alcohol Use Standard Drinks/Week Comments Yes 0 (1 standard drink = 0.6 oz pure alcoho l) Rare Sex Assigned at Date Recorded Not on file documented as of this encounter Last Filed Vital Signs Vital Sign Reading Time Taken Comments Blood Pressure - - Pulse - - Temperature - - Respiratory Rate - - Oxygen Saturation - - Inhaled Oxygen Concentration - - Weight 68.9 kg (152 lb) 06/29/2022 8:24 AM CDT Height 154.9 cm (5' 1) 06/29/2022 8:24 AM CDT Body Mass Index 28.72 06/29/2022 8:24 AM CDT documented in this encounter Progress Notes Eligio Kearney MD - 06/29/2022 8:20 AM CDT Addended by: ELIGIO KEARNEY on: 06/29/2022 04:25 PM Modules accepted: Orders, SmartSet Eligio Kearney MD - 06/29/2022 8:20 AM CDT Maggie Gonzalez [id number] 1990 Date of Visit: 06/29/22 Orthopedic Hand [...] children. She has previously worked at the [employer]. Past Medical/Surgical History: Past medical, social, family [...] candidacy for Left carpal tunnel release under [facility] local. I discussed with her continued non [...] Lela Tolbert MD documented in this encounter Plan of Treatment Scheduled Procedures Name Priority Associated Diagnoses Date/Time RELEASE CARPAL TUNNEL Bilateral carpal tunnel sy ndrome documented as of this encounter Results 2019 Novel Coronavirus (COVID-19) (07/17/2022 10:16 AM CDT) [facility] Method Time Signature COVID-19 Not Not 07/18/2022 [facility] Interpretation Detected Detected 12:18 AM CENTRAL LAB CDT Source Nares, left 07/18/2022 [facility] and right 12:18 AM C[facility]AL LAB CDT Specimen Anatomical Collection Method Collection Time Receive d Time (Source) Location / / Volume Laterality Swab (Source Non-blood 07/17/2022 10:16 07/17/2022 Required) Collection / AM CDT 10:25 AM CDT Unknown Narrative [facility] - 07/18/2022 12:18 AM CDT Test performed by Reeler Operator Mediated Amplification. TMA has been shown to be equivalent to commercial real-time PCR t ests. This test has been authorized by the FDA under Emergency Use Authorization (E UA) for use by authorized laboratories. Eligio Kearney MD LAB_1 Performing Organization Address City/State/ZIP Code Phon e Number [facility] [address] [address] documented in this encounter Visit Diagnoses Diagnosis Carpal tunnel syndrome of right wrist - Primary Carpal tunnel syndrome Carpal tunnel syndrome on left Carpal tunnel syndrome documented in this encounter Care Teams Professional Bass Fisherman Relationship Specialty Start Date End Date Lela Tolbert MD PCP - General Family Practice 08/27/[address] [place] [address] documented as of this encounter
--- OUTSIDE RECORDS SUMMARY | 2022-09-28 11:43 | XMS_ITS | Encounter Summary ---
:1990 [facility] Address [address] [place] [address] Care Team Providers Name Role Phone Lela Tolbert MD Primary Care Provider Reason for Visit Auth/Cert (Routine) Specialty Diagnoses / Procedures Referred By Contact Refer red To Contact Diagnoses Carpal tunnel syndrome on left Procedures LEFT CARPAL TUNNEL RELEASE Referral ID Status Reason Start Date Expiration Date Visits Requ ested Visits Authorized [id number] 1 1 Encounter Details Date Type Department Care Team Description 07/19/2022 Anesthesia Event [facility] [place] [address] [address] [place], [place] [phone] (Wo rk) Anesthesia Record Procedure Summary Procedure Name Responsible Anesthesia Start Anesthesia Stop Time Anesthesiologist Time RIGHT CARPAL TUNNEL Vivek Macedo MD 07/19/22 0812 0855 RELEASE (Right: Wrist) Events Date Time Event Comment 07/19/2022 0757 0812 An Start 0812 Quick Note Anesthesia start time denotes sedation started by ASSET SPECIALIST currently on case; patient continuo usly monitored to O.R. By ASSET SPECIALIST 0816 An Start Data 0817 Face Tent 0818 MD/DO Present 0825 An Local Anesthetic By Surgeon 0826 An Tourn Inflated Right arm 250 torr 0838 An Tourn Deflated 0851 an stop data 0855 Care Handoff Note I discussed wi th the receiving nurse and we: 1) Ident ified the patient, duran family member(s) or patient surrogate 2) Identified th e responsible practitioner 3) Reviewed the pertinent medical history 4) Discussed the surgical/procedu re course 5) Reviewed intra-op anesthe rickie management and issues during an esthesia 6) Set expectations for the post-procedure period 7) Allowe d opportunity for questions and ac knowledgement of understanding of report Electronically signed by Hortensia Anderson APRN, ASSET SPECIALIST 0855 An [facility] Care transferred . Name Total midazolam injection 2 mg/2 mL (VERSED) 3 mg fentaNYL injection (SUBLIMAZE) 50 mcg lidocaine 1% PF injection (XYLOCAINE) 20 mg propofol 10 mg/mL for procedural sedation (aka diPRIva n) 30 mg propofol 10 mg/mL for procedural sedation (aka diPRIva n) 111.85 mg ondansetron injection (ZOFRAN) 4 mg dexamethasone 4 mg/mL injection (DECADRON) 4 mg lactated ringers infusion 500 mL Agents Name O2 Blood No blood administrations on file. Lines, Drains, and Airways Type Details Placement Removal Peripheral IV Placement Date: 07/19/22 0750 by 07/19/22 0950 b y 07/19/22; Placement Chasidy Tyson, RN Chasidy Sanchez ch, Time: 0750; RN Pre-existing: No; Inserted by?: RN; Size (Gauge): 20 G; Orientation: Left; Site Prep: ChloraPrep; Insertion attempts: 1; Blood draw with insertion?: no; Patient Tolerance: Tolerated well; Removal Date: 07/19/22; Removal Time: 0950; Removal Reason: Patient discharged; Catheter Tip: Intact Incision/Surgical Site 07/19/22; 0840; #1; 07/19/22 0840 by 07/08 12/29 1004 by No; Wrist; Right; Harry Causey Schweich, Emily K, 07/19/22; 1004 RN RN documented in this encounter Social History Tobacco Use Types Packs/Day Years Used Date Smoking Tobacco: Former Cigarettes 0.3 Quit : 05/07/2013 Smokeless Tobacco: Never Alcohol Use Standard Drinks/Week Comments Yes 0 (1 standard drink = 0.6 oz pure alcoho l) Rare Sex Assigned at Date Recorded Not on file documented as of this encounter Miscellaneous Notes Anesthesia Postprocedure Evaluation - Vivek Macedo MD - 07/19/2022 10:24 AM CDT [facility] Anesthesia Post-op Note Patient: Maggie Gonzalez Post-Op Diagnosis: Carpal tunnel syndrome on left Procedure Performed: Procedure(s): Right - RIGHT CARPAL TUNNEL RELEASE - Wound Class: 1 CLEAN Anesthesia Type: MAC Post-op vital signs: Vitals Value Taken Time BP 112/67 07/19/2238 Temp 36.3 ??C (97.3 ??F) 07/19/22 0855 Pulse 63 07/19/22 0939 Resp 16 07/19/22 0938 SpO2 95 % 07/19/22938 Vitals shown include unvalidated device data. Pain Score: Presence Of Pain: denies Preferred Pain Scale: number (Numeric Rating Pain Scale) Pain Rating (0-10): Rest: med not given for pain Pain Rating (0-10): Activity: 0 Post-op assessment: No anesthesia complication. Patient location: Phase 2 Airway Status: Patent Cardiovascular function: Satisfactory Hydration status: Satisfactory PONV: None Level of Consciousness: Awake Fully Participates Postop Assessment: Patient tolerated procedure well. Electronically signed by: Vivek Macedo MD 07/19/2022 10:24 AM Anesthesia Preprocedure Evaluation - Vivek Macedo MD - 07/19/2022 7:44 AM CDT [facility] Anesthesia Pre-op Evaluation Procedure: LEFT CARPAL TUNNEL RELEASE, Left HPI: 32 y.o. old female with Carpal tunnel syndrome on left Last Fluid Intake Time: 2099 Last Fluid Intake Date: 07/18/22 Last Food Intake Date: 07/18/22 Last Food Intake Time: 2099 No Known Allergies No past medical history on file. Patient Active Problem List Diagnosis ??? Carpal tunnel syndrome on left No past surgical history on file. Outpatient Medications as of 07/19/2022 Medication Sig ??? escitalopram (LEXAPRO) 10 MG tablet Take 10 mg by mouth. ??? fluconazole (DIFLUCAN) 200 MG tablet Take 200 mg by mouth daily as needed. ??? sertraline (ZOLOFT) 100 MG tablet Take 100 mg by mouth daily. Facility-Administered Medications as of 07/19/2022 Medication Dose Route Frequency ??? [COMPLETED] acetaminophen (TYLENOL) tablet 1,000 mg 1,000 mg Oral Once ??? dextrose 5 % infusion Intravenous ONCE PRN ??? fentaNYL (SUBLIMAZE) injection 25-50 mcg 25-50 mcg Intravenous Q5MIN PRN ??? hydrALAZINE (APRESOLINE) injection 5 mg 5 mg Intravenous Q10MIN PRN ??? HYDROmorphone (DILAUDID) injection 0.2-0.3 mg 0.2-0.3 mg Intravenous Q10MIN PRN ??? labetalol (NORMODYNE) injection 5 mg 5 mg Intravenous Q10MIN PRN ??? lactated ringers infusion 25 mL/hr Intravenous Continuous ??? meperidine (DEMEROL) injection 12.5 mg 12.5 mg Intravenous Q5MIN PRN ??? naloxone (NARCAN) injection 0.08 mg 0.08 mg Intravenous PRN ??? naloxone (NARCAN) injection 0.4 mg 0.4 mg Intravenous ONCE PRN ??? NO pre-op antibiotics needed Miscellaneous Once ??? ondansetron (ZOFRAN) injection 4 mg 4 mg Intravenous Q4H PRN ??? sodium chloride 0.9% injection 10 mL 10 mL Intravenous PRN See Admin Labs: No results found for: SODIUM, K, CHLORIDE, CO2, BUN, CREATININE, GLUCOSE No results found for: WBC, HGB, HCT, PLTS No results found for: INR Reason a test was not performed: Hysterectomy. Blood Bank: No results found for: ABO, ABSCR EKG: No results found for this or any previous visit. Physical Exam: BP 124/82 Pulse 89 Temp 36.4 ??C (97.5 ??F) (Temporal Artery) Resp 16 LMP 08/28/2013 SpO2 100% Assessment/Plan: Review of Systems NPO Status: Acceptable. Patient does not have GERD. Patient is not a current smoker. Patient is a former smoker. The patient reports alcohol use. Patient denies any recent URI. History of PONV: No. History of motion sickness: No. Patient denies any personal or family history of anesthesia complications. Exam Mental Status: Alert and oriented. Mallampati score: II (Two). Mouth opening: Normal Thyromental Distance: > 3 finger breadths and Normal Neck Extension: Full Neck Circumference > 40 cm?: No Current airway assessment:Normal Dentition: Caps/crowns. Cardiac Exam: Regular rate and rhythm. Respiratory Exam: Breath sounds clear to auscultation Assessment ASA Status: 1 . Plan Anesthesia type: MAC Induction: Maintenance: TIVA Postoperative pain management: Plan for postoperative opioid use PONV Risk Score Adult: 3 PONV Prophylaxis (planned): Ondansetron Anesthetic plan, risks, benefits and alternatives discussed with: Patient or Wood Preparation Supervisor agree tothe anesthesia treatment plan. H&P Reviewed and Patient examined, no change observed IV access Antibiotics per surgery Electronically signed by: Vivek Macedo MD 07/19/2022 7:44 AM documented in this encounter Plan of Treatment Scheduled Procedures Name Priority Associated Diagnoses Date/Time RELEASE CARPAL TUNNEL Bilateral carpal tunnel sy ndrome documented as of this encounter Visit Diagnoses Not on filedocumented in this encounter Administered Medications Inactive Administered Medications - up to 3 most recent administrations Medication Order MAR Action Action Date Dose Rate Site dexamethasone (DECADRON) injection Given 07/19/2022 8:34 AM CDT 4 mg Intravenous, Starting on Tue07/19/22 at 0834, Until Tue07/19/22 at 0855 fentaNYL (SUBLIMAZE) injection Given 07/19/2022 8:14 AM CDT 50 mcg Intravenous, Starting on Tue07/19/22 at 0814, Until Tue07/19/22 at 0855 lactated ringers infusion Started 07/19/2022 8:13 AM CDT Intravenous, Starting on Tue07/19/22 at 0813 lidocaine PF (XYLOCAINE) 1 % injection Given 07/19/2022 8:18 AM CDT 20 mg Intravenous, Starting on Tue07/19/22 at 0818 midazolam (VERSED) injection Given 07/19/2022 8:36 AM CDT 0.5 mg Intravenous, Starting on Tue07/19/22 at 0812, Until Tue07/19/22 at 0855 Given 07/19/2022 8:29 AM CDT 0.5 mg Given 07/19/2022 8:12 AM CDT 2 mg ondansetron (ZOFRAN) injection Given 07/19/2022 8:30 AM CDT 4 mg Intravenous, Starting on Tue07/19/22 at 0830, Until Tue07/19/22 at 0855 propofol (DIPRIVAN) 10 mg/mL injection Given 07/19/2022 8:25 AM CDT 30 mg Intravenous, Starting on Tue07/19/22 at 0825, Until Tue07/19/22 at 0855 propofol (DIPRIVAN) 10 mg/mL Rate/Dose 07/19/2022 8:33 80 mcg/kg/min 22.944 injection Change AM CDT mL/hr Intravenous, Starting on Tue07/19/22 at 0818, Until Tue07/19/22 at 0855 Rate/Dose Change 07/19/2022 8:24 AM CDT 100 mcg/kg/min 28.68 mL/hr Started 07/19/2022 8:18 AM CDT 80 mcg/kg/min 22.944 mL/hr documented in this encounter Care Teams Associate Financial Advisor Relationship Specialty Start Date End Date Lela Tolbert MD PCP - General Family Practice 08/27/[address] [place] [address] documented as of this encounter
--- OUTSIDE RECORDS SUMMARY | 2022-09-28 11:43 | XMS_ITS | Encounter Summary ---
:1990 Author Organization [facility] Address [address] [place] [address] Care Team Providers Name Role Phone Lela Tolbert MD Primary Care Provider Encounter Details Date Type Department Care Team Description 07/17/2022 Lab Visit [facility] Carpal tunnel syndrome on Laboratory left [address] [place] [address] Social History Tobacco Use Types Packs/Day Years [...] encounter Procedures Procedure Name Priority Date/Time Associated Comments Diagnosis 2019 NOVEL Routine 07/17/2022 10:16 Carpal tunnel Results fo r this CORONAVIRUS AM CDT syndrome on left procedure a re in the results section. documented in this encounter Results 2019 Novel Coronavirus (COVID-19) (07/17/2022 10:16 AM CDT) [facility] Method Time Signature COVID-19 Not Not 07/18/2022 [facility] Interpretation Detected Detected 12:18 AM CENTRAL LAB CDT Source Nares, left 07/18/2022 [facility] and right 12:18 AM CENTRAL LAB CDT Specimen Anatomical Collection Method Collection Time Receive d Time (Source) Location / / Volume Laterality Swab (Source Non-blood 07/17/2022 10:16 07/17/2022 Required) Collection / AM CDT 10:25 AM CDT Unknown Narrative [facility] [place] [facility] - 07/18/2022 12:18 AM CDT Test performed by Food Services Director Mediated Amplification. TMA has been shown to be equivalent to commercial real-time PCR t ests. This test has been authorized by the FDA under Emergency Use Authorization (E UA) for use by authorized laboratories. Aries Kearney MD LAB_1 Performing Organization Address City/State/ZIP Code Phon e Number [facility] [place] [facility] [address] [address] documented in this encounter Visit Diagnoses Diagnosis Carpal tunnel syndrome on left Carpal tunnel syndrome documented in this encounter Care Teams Advanced Developer Relationship Specialty Start Date End Date Lela Tolbert MD PCP - General Family Practice 08/27/[address] [place] [address] documented as of this encounter
--- OUTSIDE RECORDS SUMMARY | 2022-09-28 11:43 | XMS_ITS | Encounter Summary ---
:1990 [facility] Address [address] [place] [address] Care Team Providers Name Role Phone Lela Tolbert MD Primary Care Provider Encounter Details Date Type Department Care Team Description 08/24/2022 Notes/Orders TRIAries Archer MD Orthopaedics & Sports [address] [facility] [id number] [place] [address] [place] [address] [phone] Social History Tobacco Use Types Packs/Day Years [...] on filedocumented in this encounter Care Teams Powder Hand Relationship Specialty Start Date End Date Lela Tolbert MD PCP - General Family Practice 08/27/[address] [id number] documented as of this encounter
--- OUTSIDE RECORDS SUMMARY | 2022-09-28 11:44 | XMS_ITS | Encounter Summary ---
:1990 [facility] Address [address] [place] [address] Care Team Providers Name Role Phone Jaiden Angulo MD Primary Care Provider Encounter Details Date Type Department Care Team Description 01/03/1996 Office Visit [facility] Byron Erickson Un [place] [address] [facility] [address] conditions classified [place], [place]her [place] and [address] unspecified site [phone] Social History Tobacco Use Types Packs/Day Years Used Date Smoking Tobacco: Never Assessed Sex Assigned at Date Recorded Not on file documented as of this encounter Plan of Treatment Scheduled Procedures Name Priority Associated Diagnoses Date/Time RELEASE CARPAL TUNNEL Bilateral carpal tunnel sy ndrome documented as of this encounter Visit Diagnoses Diagnosis Unspecified viral infection, in conditio ns classified elsewhere and of unspecified site documented in this encounter Care Teams Kaiawhina Kohanga Reo Relationship Specialty Start Date End Date Jaiden Angulo MD PCP - General 10/20/1996 03/27/06 [facility] [address] [place] [address] documented as of this encounter
--- OUTSIDE RECORDS SUMMARY | 2022-09-28 11:44 | XMS_ITS | Encounter Summary ---
:1990 Author Organization [facility] Address [address] [place] [address] Care Team Providers Name Role Phone Jaiden Angulo MD Primary Care Provider Encounter Details Date Type Department Care Team Description 11/09/1995 Office Visit Urgent Care Byron Erickson [place] [address] [facility] [address] [place] [address] [phone] Social History Tobacco Use Types Packs/Day Years Used Date Smoking Tobacco: Never Assessed Sex Assigned at Date Recorded Not on file documented as of this encounter Plan of Treatment Scheduled Procedures Name Priority Associated Diagnoses Date/Time RELEASE CARPAL TUNNEL Bilateral carpal tunnel sy ndrome documented as of this encounter Visit Diagnoses Diagnosis Unspecified otitis media documented in this encounter Care Teams Ship Engines Operating Engineer Relationship Specialty Start Date End Date Jaiden Angulo MD PCP - General 10/20/1996 03/27/06 [facility] [address] [place] [address] documented as of this encounter
--- OUTSIDE RECORDS SUMMARY | 2022-09-28 11:44 | XMS_ITS | Encounter Summary ---
:1990 [facility] Address [address] [address] Care Team Providers Name Role Phone Lela Tolbert MD Primary Care Provider Reason for Visit Reason Comments COUGH Encounter Details Date Type Department Care Team Description 08/30/2013 Office Visit [facility] Mary Fish S inusitis (Primary Practice MODERN LANGUAGES PROFESSOR, FIELD MARKETING LEAD Dx) [address] [address] [phone] (Wo rk) Social History Tobacco Use Types [...] Sign Reading Time Taken Comments Blood Pressure 110/72 08/30/2013 8:36 AM CDT Pulse 104 08/30/2013 8:36 AM CDT Temperature 36.6 ??C (97.9 ??F) 08/30/2013 8:36 AM CDT Respiratory Rate 16 08/30/2013 8:36 AM CDT Oxygen Saturation 97% 08/30/2013 8:36 AM CDT Inhaled Oxygen Concentration - - Weight 49 kg (108 lb) 08/30/2013 8:36 AM CDT Height 154.9 cm (5' 1) 08/30/2013 8:36 AM CDT Body Mass Index 20.41 08/30/2013 8:36 AM CDT documented in this encounter Patient Instructions Patient InstructionsMary Fish, MODERN LANGUAGES PROFESSOR, FIELD MARKETING LEAD - 08/30/2013 8:53 AM CDT Images from the original note were not included. Sinusitis: After Your Visit Your Care Instructions Sinusitis is an infection of the lining of the sinus cavities in your head. Sinusitis often follows a cold and causes pain and pressure in your head and face. Antibiotics can help cure sinusitis caused by bacteria. You should begin to feel better within a couple of days, but some symptoms may last for a month or more. If your doctor thinks that you have a bacterial infection, he or she will probably prescribe antibiotics. Follow-up care is a duran part of your treatment and safety. Be sure to make and go to all appointments, and call your doctor if you are having problems. It???s also a good idea to know your test resultsand keep a list of the medicines you take. How can you care for yourself at home? ?? Take your antibiotics as directed. Do not stop taking them just because you feel better. You needto take the full course of antibiotics. ?? Take an bqjl-kad-ideznpd pain medicine, such as acetaminophen (Tylenol), ibuprofen (Advil, Motrin), or naproxen (Aleve). Read and follow all instructions on the label. ?? Be careful when taking qenp-iwm-qyfsdbz cold or flu medicines and Tylenol at the same time. Many of these medicines have acetaminophen, which is Tylenol. Read the labels to make sure that you are not taking more than the recommended dose. Too much acetaminophen (Tylenol) can be harmful. ?? Breathe warm, moist air from a steamy shower, a hot bath, or a sink filled with hot water. Avoid cold, dry air. Using a humidifier in your home may help. Follow the instructions for cleaning the machine. ?? Use saline (saltwater) nasal washes to help keep your nasal passages open and wash out mucus and bacteria. You can buy saline nose drops at a grocery store or drugstore. Or you can make your own at home by adding 1 teaspoon of salt and 1 teaspoon of baking soda to 2 cups of distilled water. If you make your own, fill a bulb syringe with the solution, insert the tip into your nostril, and squeeze gently. Blow your nose. ?? Put a hot, wet towel or a warm gel pack on your face 3 or 4 times a day for 5 to 10 minutes each time. ?? Try a decongestant nasal spray like oxymetazoline (Afrin). Do not use it for more than 3 days in a row. Using it for more than 3 days can make your congestion worse. ?? Take a decongestant such as pseudoephedrine (Sudafed) if your doctor recommends it. ?? Try a cough medicine with guaifenesin if your doctor recommends it. This can thin your mucus. ?? If you need to blow your nose, do it gently. Forceful blowing may force thick mucus back into your sinuses. Keep both nostrils open when you blow your nose. When should you call for help? Call your doctor now or seek immediate medical care if: ?? You have new or worse swelling or redness in your face or around your eyes. Watch closely for changes in your health, and be sure to contact your doctor if: ?? You have a new or higher fever. ?? You have new or worse facial pain. ?? You are not getting better after 2 days (48 hours). ?? The mucus from your nose becomes thicker (like pus) or has new blood in it. Where can you learn more? Go to [facility] and enter I933 in the search box. Last Revised: December 20, 2011 ?? [id number] [employer] documented in this encounter Progress Notes Mary Fish APRN, CNP - 08/30/2013 8:46 AM CDT SUBJECTIVE: 23 yr female presents to clinic with her S.O. Maykel to discuss Chief Complaint Patient presents with ??? COUGH Has had a cough for a month this developed into sinusitus symptoms. Savage this was getting better andnow worse. Has pain and pressure in the frontal sinuses, post nasal drainage and loose cough. No wheezing or chest pain. No ear or throat pain. Tactile fevers No nausea, vomiting or diarrhea. No history of pneumonia or asthma. Quit smoking. 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 Has tried Dayuil, Nyquil, Advil decongestant, cough drops with no improvement in symptoms. Current Outpatient Prescriptions Medication Sig ??? Ibuprofen (ADVIL) 200 MG capsule Take 200 mg by mouth every 6 hours as needed. ??? Loratadine (CLARITIN) 10 MG capsule Take 10 mg by mouth daily. ??? oxymetazoline (VICKS SINEX 12 HOUR) 0.05 % nasal solution Apply or instill 2 Sprays into both nostrils two times a day. I have personally reviewed the patient's allergies, medications, problem list, lab results and health maintenance record in detail and updated the patient record as necessary. OBJECTIVE: BP 110/72 Pulse 104 Temp(Src) 97.9 ??F (36.6 ??C) (Tympanic) Resp 16 Ht 5' 1 (1.549 m) Wt108 lb (48.988 kg) BMI 20.42 kg/m2 SpO2 97% She appears well, alert and oriented, neatly and casually dressed, in no apparent distress. Eyes: PERRLA, EOMI, no drainage, no conjunctivitis, no photophobia Nose: mild erythema and edematous mucosa, frontal sinus tenderness Ears: EACs are clear with TMs that are clear, translucent and without bulging or erythema Mouth: moist mucosa, oropharynx shows no erythema, edema or exudate Neck: supple with no adenopathy Heart: regular rate and rhythm without murmur Lungs: respirations easy and even, lungs are clear with no crackles, no wheezing, no rhonchi Skin: warm and dry without rash ASSESSMENT: 1. Sinusitis amoxicillin (AKA AMOXIL) 500 MG capsule PLAN: She declines influenza vaccination Discussed home treatment Call or return to clinic prn if these symptoms worsen, fail to improve as anticipated, or if new symptoms develop. Maggie indicates she understands and agrees with the plan of care. See After Visit Summary, patient instructions and orders. Mary Fish NP documented in this encounter Plan of Treatment Scheduled Procedures Name Priority Associated Diagnoses Date/Time RELEASE CARPAL TUNNEL Bilateral carpal tunnel sy ndrome documented as of this encounter Visit Diagnoses Diagnosis Sinusitis - Primary Unspecified sinusitis (chronic) documented in this encounter Care Teams Hardboard Supervisor Relationship Specialty Start Date End Date Lela Tolbert MD PCP - General Family Practice 08/27/[address] [place] [address] documented as of this encounter
--- OUTSIDE RECORDS SUMMARY | 2022-09-28 11:44 | XMS_ITS | Encounter Summary ---
:1989 [facility] Organization [facility] Address [address] [place] [address] Care Team Providers Name Role Phone Jaiden Angulo MD Primary Care Provider Encounter Details Date Type Department Care Team Description 03/22/1996 Office Visit [facility] Leigh Ann Adkins, WARTS (UNSPECIFIED) [address] [place], [place] [address] C/O [phone] [place] [address] Social History Tobacco Use Types Packs/Day Years Used Date Smoking Tobacco: Never Assessed Sex Assigned at Date Recorded Not on file documented as of this encounter Progress Notes Leigh Ann Adkins APRN, CNP - 03/22/1996 12:00 AM CDTS: 5 y.o. girl has plantar's wart on the heel of her right foot. Would like to have it treated. Has not treated it with any dhpk-qpu-crqefpa medication. Heel is starting to bother her. O: Exam of the right foot shows a common plantar wart, fairly large, about 3-4 mm in diameter. A: Plantar's wart. P: The area was pared and then treated with liquid nitrogen. Discussed follow-up care and may need to return for another treatment as this is quite a large wart. cc: documented in this encounter Plan of Treatment Scheduled Procedures Name Priority Associated Diagnoses Date/Time RELEASE CARPAL TUNNEL Bilateral carpal tunnel sy ndrome documented as of this encounter Visit Diagnoses Diagnosis Viral warts, unspecified documented in this encounter Care Teams Assessment Rn Relationship Specialty Start Date End Date Jaiden Angulo MD PCP - General 10/20/1996 03/27/06 [facility] [address] [place] [address] documented as of this encounter
--- OUTSIDE RECORDS SUMMARY | 2022-09-28 11:44 | XMS_ITS | Encounter Summary ---
:1989 Author Organization [facility] Address [address] [place] [address] Care Team Providers Name Role Phone Jaiden Angulo MD Primary Care Provider Encounter Details Date Type Department Care Team Description 03/24/1997 [facility] S[facility] [place] [address] [facility] [place], [place] [address] [facility] [phone] URGENT CARE, [address] Social History Tobacco Use Types Packs/Day Years Used Date Smoking Tobacco: Never Assessed Sex Assigned at Date Recorded Not on file documented as of this encounter Plan of Treatment Scheduled Procedures Name Priority Associated Diagnoses Date/Time RELEASE CARPAL TUNNEL Bilateral carpal tunnel sy ndrome documented as of this encounter Visit Diagnoses Diagnosis Streptococcal sore throat documented in this encounter Care Teams Steward/Stewardess Lounge Relationship Specialty Start Date End Date Jaiden Angulo MD PCP - General 10/20/1996 03/27/06 [facility] [address] [place], [place] [id number] documented as of this encounter
--- OUTSIDE RECORDS SUMMARY | 2022-09-28 11:44 | XMS_ITS | Encounter Summary ---
:1989 Author Organization [facility] Address [address] [place] [address] Care Team Providers Name Role Phone Lela Tolbert MD Primary Care Provider Encounter Details Date Type Department Care Team Description 05/30/2013 Orders Only [facility] Claims MD Sandee Security Contact Bill [address] [place] [address] Mailstop [id number] [phone] (Wo rk) Social History Tobacco Use Types Packs/Day Years Used Date Smoking Tobacco: Every Day Cigarettes 0.3 Smokeless Tobacco: Never Alcohol Use Standard Drinks/Week [...] on filedocumented in this encounter Care Teams Probation Worker Relationship Specialty Start Date End Date Lela Tolbert MD PCP - General Family Practice 08/27/[address] [place] [address] documented as of this encounter
--- OUTSIDE RECORDS SUMMARY | 2022-09-28 11:44 | XMS_ITS | Encounter Summary ---
:1989 Author Organization [facility] Address [address] [place] [address] Care Team Providers Name Role Phone Lela Tolbert MD Primary Care Provider Encounter Details Date Type Department Care Team Description 12/01/1996 Orders Only Sheldon Ospina Social History Tobacco Use Types Packs/Day Years Used Date Smoking Tobacco: Never Assessed Sex Assigned at Date Recorded Not on file documented as of this encounter Plan of Treatment Scheduled Procedures Name Priority Associated Diagnoses Date/Time RELEASE CARPAL TUNNEL Bilateral carpal tunnel sy ndrome documented as of this encounter Visit Diagnoses Not on filedocumented in this encounter Care Teams Archeologist Relationship Specialty Start Date End Date Lela Tolbert MD PCP - General Family Practice 08/27/[address] [place] [address] documented as of this encounter
--- OUTSIDE RECORDS SUMMARY | 2022-09-28 11:44 | XMS_ITS | Encounter Summary ---
:1989 Author Organization [facility] Address [address] [address] Care Team Providers Name Role Phone Lela Tolbert MD Primary Care Provider Encounter Details Date Type Department Care Team Description 03/24/1997 Orders Only [place] Social History Tobacco Use Types Packs/Day Years Used Date Smoking Tobacco: Never Assessed Sex Assigned at Date Recorded Not on file documented as of this encounter Plan of Treatment Scheduled Procedures Name Priority Associated Diagnoses Date/Time RELEASE CARPAL TUNNEL Bilateral carpal tunnel sy ndrome documented as of this encounter Visit Diagnoses Not on filedocumented in this encounter Care Teams Machine Brush Maker Relationship Specialty Start Date End Date Lela Tolbert MD PCP - General Family Practice 08/27/[address] [place] [address] documented as of this encounter
--- OUTSIDE RECORDS SUMMARY | 2022-09-28 11:44 | XMS_ITS | Encounter Summary ---
:1989 Author [facility] Address [address] [place] [address] Care Team Providers Name Role Phone Jaiden Angulo MD Primary Care Provider Encounter Details Date Type Department Care Team Description 12/03/1997 Office Visit [facility] Sid Urena, ACUTE PHARYNGITIS(SORE [address] THROAT) [place], [place] [address] Social History Tobacco Use Types Packs/Day Years Used Date Smoking Tobacco: Never Assessed Sex Assigned at Date Recorded Not on file documented as of this encounter Plan of Treatment Scheduled Procedures Name Priority Associated Diagnoses Date/Time RELEASE CARPAL TUNNEL Bilateral carpal tunnel sy ndrome documented as of this encounter Visit Diagnoses Diagnosis Acute pharyngitis documented in this encounter Care Teams Soil And Plant Scientist Relationship Specialty Start Date End Date Jaiden Angulo MD PCP - General 10/20/1996 03/27/06 [facility] [address] [place] [address] documented as of this encounter
--- OUTSIDE RECORDS SUMMARY | 2022-09-28 11:44 | XMS_ITS | Encounter Summary ---
:1989 Author [facility] Address [address] [place] [address] Care Team Providers Name Role Phone Jaiden Angulo MD Primary Care Provider Encounter Details Date Type Department Care Team Description 12/10/1998 Office Visit [facility] Sid Urena, CORNS AND CALLOSITIES [address] [place], [place] [address] Social History Tobacco Use Types Packs/Day Years Used Date Smoking Tobacco: Never Assessed Sex Assigned at Date Recorded Not on file documented as of this encounter Progress Notes Sid Urena - 12/10/1998 12:00 AM CSTS: Left-hand ring finger; she noticed a bump over the DIP joint. Apparently, she had injured that 4 or 5 years ago. She is left-handed. O: She has a small callous over the DIP joint, the left ring finger on the radial side of the finger. She demonstrated how she writes, and she holds her pen there. A: Dough Brake Machine Operator's bump. P: Reassurance given. Return to clinic p.r.n. cc: H BRAKE MACHINE OPERATOR documented in this encounter Plan of Treatment Scheduled Procedures Name Priority Associated Diagnoses Date/Time RELEASE CARPAL TUNNEL Bilateral carpal tunnel sy ndrome documented as of this encounter Visit Diagnoses Diagnosis Corns and callosities documented in this encounter Care Teams Residential Tech Relationship Specialty Start Date End Date Jaiden Angulo MD PCP - General 10/20/1996 03/27/06 [facility] [address] [place] [address] documented as of this encounter
--- OUTSIDE RECORDS SUMMARY | 2022-09-28 11:44 | XMS_ITS | Encounter Summary ---
:1989 Author Organization [facility] Address [address] [place] [address] Care Team Providers Name Role Phone Jaiden Angulo MD Primary Care Provider Reason for Visit Reason Comments RASH VIA INTERFACE Encounter Details Date Type Department Care Team Description 06/15/2000 Office Visit [facility] Tamiko Dowd MD NONSPECIF SKIN ERUPT NEC; [address] [place]; [place], [place] [address] ACUTE PHARYNGITIS(SORE THROA T); [phone] LABORATORY EXAM INATION Social History Tobacco Use Types Packs/Day Years Used Date Smoking Tobacco: Never Assessed Sex Assigned at Date Recorded Not on file documented as of this encounter Progress Notes Tamiko Dowd - 06/15/2000 12:00 AM CDTS: [age] years old. Came with the mother with a concern of rash on the right wrist, left arm, left upper chest area and now on the back. This has been going on for one to two weeks. Does not itch. Tried Cortaid without help. No cold symptoms prior to the rash developing. She has been playing outside a lot. No allergy to medication. Not on any medication. The mother is very concerned about this rash and has a lot of questions. O: Weight 73 pounds. Oval-shaped rash on the right arm; 0.75-cm vesicular rash on the left wrist and the left arm. Slight oval-shaped rash on the left upper chest. Circular rash in the midback. Pharynx red. A: Early pityriasis rosea. Pharyngitis. P: Rapid Strep test negative. Since the mother is so worried and concerned about contagion of this rash, BOBY was done and it was negative. Reassurance. All her concerns I tried to answer. Return to clinic p.r.n. cc: Tamiko Dowd MD documented in this encounter Plan of Treatment Scheduled Procedures Name Priority Associated Diagnoses Date/Time RELEASE CARPAL TUNNEL Bilateral carpal tunnel sy ndrome documented as of this encounter Visit Diagnoses Diagnosis Rash and other nonspecific skin eruption Pityriasis rosea Acute pharyngitis Laboratory examination documented in this encounter Care Teams Dial Printer Relationship Specialty Start Date End Date Jaiden Angulo MD PCP - General 10/20/1996 03/27/06 [facility] [id number] [place] [address] documented as of this encounter
--- OUTSIDE RECORDS SUMMARY | 2022-09-28 11:44 | XMS_ITS | Encounter Summary ---
:1989 Author Organization [facility] Address [address] [place] [address] Care Team Providers Name Role Phone Jaiden Angulo MD Primary Care Provider Reason for Visit Reason Comments PE VIA INTERFACE Encounter Details Date Type Department Care Team Description 07/30/1999 Office Visit [facility] Sid Urena, ROUTINE CHILD HEALTH EXAM; [address] NEURAL HEARING LOSS; [place], [place] [address] VACCINE [id number] ; [phone] VACCINE FOR VIR AL HEPATITIS Social History Tobacco Use Types Packs/Day Years Used Date Smoking Tobacco: Never Assessed Sex Assigned at Date Recorded Not on file documented as of this encounter Progress Notes Sid Urena - 07/30/1999 12:00 AM CDTS: Here for 10 year PE. Has a history of hearing loss, wears a hearing aid in her left ear, she's doing fine with that. She's in fifth grade at [employer], does well in school. Active, has been in gymnastics. O: Healthy appearing. Eyes - gaze was conjugate. Ears - TMs had some mild sclerosis but pearly. Nose mildly congested. Throat negative. Chest was clear. Cardiac without murmur. Abdomen soft. not examined. Back straight. Skin without rashes. Neurologic exam normal. A: Healthy 9 year-old with hearing loss. P: Anticipatory guidance discussed. Return to clinic in a couple of years for routine health maintenance. HEP B today. cc: documented in this encounter Plan of Treatment Scheduled Procedures Name Priority Associated Diagnoses Date/Time RELEASE CARPAL TUNNEL Bilateral carpal tunnel sy ndrome documented as of this encounter Visit Diagnoses Diagnosis Routine or child health check Neural hearing loss, bilateral Need for prophylactic vaccination with m zkdbir-sslzk-qvpqlen (MMR) vaccine Need for prophylactic vaccination and in oculation against viral hepatitis documented in this encounter Care Teams Mangle Press Catcher Relationship Specialty Start Date End Date Jaiden Angulo MD PCP - General 10/20/1996 03/27/06 [facility] [id number] [place] [address] documented as of this encounter
--- OUTSIDE RECORDS SUMMARY | 2022-09-28 11:44 | XMS_ITS | Encounter Summary ---
:1989 Author Organization [facility] Address [address] [place] [address] Care Team Providers Name Role Phone Lela Tolbert MD Primary Care Provider Reason for Visit Reason Comments IRRITATION, SKIN, NOS Encounter Details Date Type Department Care Team Description 09/27/2013 Office Visit [facility] Michelle Mejia, Etelvina n sensation Practice PA-C disturbance (Primary [address] [facility] [address]) [place] [address] [phone] Social History Tobacco Use Types Packs/Day Years Used Date Smoking Tobacco: Former Cigarettes 0.3 Quit : 05/07/2013 Smokeless Tobacco: Never Alcohol Use Standard Drinks/Week Comments Yes 0 (1 standard drink = 0.6 oz pure alcoho l) Rare Sex Assigned at Date Recorded Not on file documented as of this encounter Last Filed Vital Signs Vital Sign Reading Time Taken Comments Blood Pressure 112/75 09/27/2013 9:09 AM HOSPICE MANAGER Pulse 101 09/27/2013 9:09 AM HOSPICE MANAGER Temperature 37.1 ??C (98.7 ??F) 09/27/2013 9:09 AM HOSPICE MANAGER Respiratory Rate 12 09/27/2013 9:09 AM HOSPICE MANAGER Oxygen Saturation - - Inhaled Oxygen Concentration - - Weight 49 kg (108 lb) 09/27/2013 9:09 AM HOSPICE MANAGER Height 154.3 cm (5' 0.75) 09/27/2013 9:09 AM HOSPICE MANAGER Body Mass Index 20.57 09/27/2013 9:09 AM HOSPICE MANAGER documented in this encounter Progress Notes Michelle Mejia PA-C - 09/27/2013 11:50 AM CST S: Maggie Gonzalez is a 23 yr female here with her BF for evaluation of skin sensitivity. Going on foryears, but getting worse. Whenever something rubs against her skin, usually for more then a few seconds, she'll develop a burning/chaffing sensation. Not necessarily painful but uncomfortable enough alonso t she will move, or having her BF stop touching her. She never develops a rash or skin redness/irritation to the area with the discomfort. Mostly bothers her on her arms, but can occur on her legs and trunk as well. She denies issues on her palms or soles. She denies seasonal or environmental allergies O: BP 112/75 Pulse 101 Temp(Src) 98.7 ??F (37.1 ??C) (Oral) Resp 12 Ht 5' 0.75 (1.543 m) Wt 108 lb (48.988 kg) BMI 20.58 kg/m2 LMP 08/28/2013 Vitals reviewed by me. Normal skin exam on both arms A: Disturbance of skin sensation P: 1) I asked her whether she has tried claritin or zyrtec and she said when she was sick for 1-2 months earlier this fall she took claritin for two weeks consistently but it never changed anything with her skin. 2) One thought might be to try a low dose of gabapentin but she really doesn't want to take meds. More wants to know what the cause it. 3) Certainly avoiding things that cause irritation, she says she sometimes puts a blanket down at her desk at work so her forearms aren't rubbing across her desk. 4) Suggested dermatology eval to see if they have any ideas, otherwise she should certainly let me know if there are new or worsening sx Michelle Mejia PA-C 09/27/2013, 12:12 PM ICE MANAGER documented in this encounter Plan of Treatment Scheduled Procedures Name Priority Associated Diagnoses Date/Time RELEASE CARPAL TUNNEL Bilateral carpal tunnel sy ndrome documented as of this encounter Visit Diagnoses Diagnosis Skin sensation disturbance - Primary Disturbance of skin sensation documented in this encounter Care Teams Wood Finisher Relationship Specialty Start Date End Date Lela Tolbert MD PCP - General Family Practice 08/27/[address] [place] [address] documented as of this encounter
--- OUTSIDE RECORDS SUMMARY | 2022-09-28 11:44 | XMS_ITS | Encounter Summary ---
:1989 Author Organization [facility] Address [address] [place] [address] Care Team Providers Name Role Phone Jaiden Angulo MD Primary Care Provider Reason for Visit Reason Comments MARCELO HERNANDEZ MD Encounter Details Date Type Department Care Team Description 12/01/1997 Telephone Careline Salma Berman RN SORE THROAT, [place] [address] [place], [place] [address] [phone] [place] [address] Social History Tobacco Use Types Packs/Day Years Used Date Smoking Tobacco: Never Assessed Sex Assigned at Date Recorded Not on file documented as of this encounter Nursing Notes 12/01/1997 11:59 PM MACHINIST SET UP >> CALL RECEIVED. Contact: [phone] >> SALMA BERMAN 12/01/1997 06:35 am 7 year old,female compl of headache and sorethroat temp 101.9 no vomiting no diarrhea sl abd pain able to eat and drink sl nasal cassi no cough no stiff neck just given 4 childrens tylenol wt 50# will continue with clear liquids give tylenol time to work to [facility] documented in this encounter Plan of Treatment Scheduled Procedures Name Priority Associated Diagnoses Date/Time RELEASE CARPAL TUNNEL Bilateral carpal tunnel sy ndrome documented as of this encounter Visit Diagnoses Not on filedocumented in this encounter Care Teams Management Retail Intern Relationship Specialty Start Date End Date Jaiden Angulo MD PCP - General 10/20/1996 03/27/06 [facility] [address] [place] [address] documented as of this encounter
--- OUTSIDE RECORDS SUMMARY | 2022-09-28 11:44 | XMS_ITS | Encounter Summary ---
:1989 Author Organization [facility] Address [address] [place] [address] Care Team Providers Name Role Phone Jaiden Angulo MD Primary Care Provider Encounter Details Date Type Department Care Team Description 12/01/1997 Notes/Orders Epic, [place] [address] Social History Tobacco Use Types Packs/Day Years Used Date Smoking Tobacco: Never Assessed Sex Assigned at Date Recorded Not on file documented as of this encounter Plan of Treatment Scheduled Procedures Name Priority Associated Diagnoses Date/Time RELEASE CARPAL TUNNEL Bilateral carpal tunnel sy ndrome documented as of this encounter Procedures Procedure Name Priority Date/Time Associated Diagnosis Comme nts STREP GRP A, RAPID Waiting 12/01/1997 1:20 PM Res ults for this SCREEN BRIGADIER procedure are i n the results section. documented in this encounter Results RAPID, GPA STREP SCREEN (WAITING) (12/01/1997 1:20 PM BRIGADIER) [facility] gist Method Time Signature Patient Home None [email or web address] Phone # Patient Work [phone] [employer] Phone # Patient Work Lela [email or web address] Phone # Grp A Rapid Negative [employer] Screen Grp A Culture Negative [email or web address] Final Specimen Anatomical Collection Method Collection Time Receive d Time (Source) Location / / Volume Laterality 12/01/1997 1:20 PM 8 1:21 BRIGADIER PM [facility]IGADIER [facility]ative [facility] 12/01/1997 1:20 PM BRIGADIER Ordered by URGENT CARE Internal Processing Epic LAB_1 Performing Organization Address City/State/ZIP Code Phon e Number [facility] [phone] [facility] [address] [address] documented in this encounter Visit Diagnoses Not on filedocumented in this encounter Care Teams Development Engineer Relationship Specialty Start Date End Date Jaiden Angulo MD PCP - General 10/20/1996 03/27/06 [facility] [address] [place], [place] [id number] documented as of this encounter
--- OUTSIDE RECORDS SUMMARY | 2022-09-28 11:44 | XMS_ITS | Encounter Summary ---
:1989 Author [facility] Address [address] [place] [address] Care Team Providers Name Role Phone Jaiden Angulo MD Primary Care Provider Encounter Details Date Type Department Care Team Description 12/03/1997 Notes/Orders Sid Urena MD Social History Tobacco Use Types Packs/Day Years Used Date Smoking Tobacco: Never Assessed Sex Assigned at Date Recorded Not on file documented as of this encounter Plan of Treatment Scheduled Procedures Name Priority Associated Diagnoses Date/Time RELEASE CARPAL TUNNEL Bilateral carpal tunnel sy ndrome documented as of this encounter Procedures Procedure Name Priority Date/Time Associated Diagnosis Comme nts STREP GRP A, RAPID Waiting 12/03/1997 4:05 PM Res ults for this SCREEN ENAMEL PULVERIZER procedure are i n the results section. documented in this encounter Results RAPID, GPA STREP SCREEN (WAITING) (12/03/1997 4:05 PM ENAMEL PULVERIZER) [facility] Method Time Signature Patient Home None [employer] Phone # Patient Work [phone] [facility] Phone # Grp A Rapid Negative [facility] Screen Grp A Culture Negative [facility] Final Specimen Anatomical Collection Method Collection Time Receive d Time (Source) Location / / Volume Laterality 12/03/1997 4:05 PM 8 4:06 ENAMEL PULVERIZER PM ENAMEL PULVERIZER Sid Urena MD LAB_1 Performing Organization Address City/State/ZIP Code Phon e Number [facility] [phone] [facility] [address] [address] documented in this encounter Visit Diagnoses Not on filedocumented in this encounter Care Teams Allergy Specialist Relationship Specialty Start Date End Date Jaiden Angulo MD PCP - General 10/20/1996 03/27/06 [facility] [address] [place] [address] documented as of this encounter
--- OUTSIDE RECORDS SUMMARY | 2022-09-28 11:44 | XMS_ITS | Encounter Summary ---
:1989 [facility] Address [address] [place] [address] Care Team Providers Name Role Phone Jaiden Angulo MD Primary Care Provider Reason for Visit Reason Comments SHOT,HEPATITIS B VIA INTERFACE Encounter Details Date Type Department Care Team Description 02/05/2000 Office Visit [facility] Unknown, VACCINE FOR VIRAL [address] Physician HEPATITIS [place], [place] [address] [address] [phone] [place] [address] Social History Tobacco Use Types Packs/Day Years Used Date Smoking Tobacco: Never Assessed Sex Assigned at Date Recorded Not on file documented as of this encounter Plan of Treatment Scheduled Procedures Name Priority Associated Diagnoses Date/Time RELEASE CARPAL TUNNEL Bilateral carpal tunnel sy ndrome documented as of this encounter Visit Diagnoses Diagnosis Need for prophylactic vaccination and in oculation against viral hepatitis documented in this encounter Care Teams Building Insulation Installer Relationship Specialty Start Date End Date Jaiden Angulo MD PCP - General 10/20/1996 03/27/06 [facility] [address] [place] [address] documented as of this encounter
--- OUTSIDE RECORDS SUMMARY | 2022-09-28 11:44 | XMS_ITS | Encounter Summary ---
:1990 [facility] Address [address] [place] [address] Care Team Providers Name Role Phone Jaiden Angulo MD Primary Care Provider Reason for Visit Reason Comments SHOT,HEPATITIS B VIA INTERFACE Encounter Details Date Type Department Care Team Description 09/04/1999 Office Visit [facility] Unknown, VACCINE FOR VIRAL [address] Physician HEPATITIS [place], [place] [address] [address] [phone] [place] [address] Social History Tobacco Use Types Packs/Day Years [...] hepatitis documented in this encounter Care Teams Washer Off Relationship Specialty Start Date End Date Jaiden nAgulo MD PCP - General 10/20/1996 03/27/06 [facility] [address] [place] [address] documented as of this encounter
--- OUTSIDE RECORDS SUMMARY | 2022-09-28 11:44 | XMS_ITS | Encounter Summary ---
:1989 Author Organization [facility] Address [address] [place] [address] Care Team Providers Name Role Phone Jaiden Angulo MD Primary Care Provider Encounter Details Date Type Department Care Team Description 12/01/1996 Office Visit Urgent Care [facility] Jaiden Angulo MD ACUTE PHARYNGITIS([place] [facility] THROAT) [address] [place] [address] [facility] [address] [place], [place] [phone] Social History Tobacco Use Types Packs/Day Years Used Date Smoking Tobacco: Never Assessed Sex Assigned at Date Recorded Not on file documented as of this encounter Plan of Treatment Scheduled Procedures Name Priority Associated Diagnoses Date/Time RELEASE CARPAL TUNNEL Bilateral carpal tunnel sy ndrome documented as of this encounter Visit Diagnoses Diagnosis Acute pharyngitis documented in this encounter Care Teams Spindle Repairer Relationship Specialty Start Date End Date Jaiden Angulo MD PCP - General 10/20/1996 03/27/06 [facility] [address] [place], [place] [id number] documented as of this encounter
--- OUTSIDE RECORDS SUMMARY | 2022-09-28 11:44 | XMS_ITS | Encounter Summary ---
:1990 Author Organization [facility] Address [address] [place] [address] Care Team Providers Name Role Phone Unassigned, Provider Primary Care Provider Unavailable Reason for Visit Reason Comments Questions Encounter Details Date Type Department Care Team Description 01/02/2013 Telephone [facility] Medicin e No Pcp, No Pcp, Questions [address] [place] [address] [place] [address] [phone] Social History Tobacco Use Types Packs/Day Years Used Date Smoking Tobacco: Never Assessed Sex Assigned at Date Recorded Not on file documented as of this encounter Nursing Notes Altagracia Dykes LPN - 01/02/2013 4:08 PM CST Pt has a piercing on her side that goes under her skin and the ball that screws on the end has stripped and now the whole piercing is under the skin and healed shut. Pt wants to know if someone here will just see it and take it out in one visit- and she wants to know the charge. Says it is a very easyprocedure. I did check with a provider and it is recommended that she would probably need to see general surgery. Pt declines and already has something set up at [facility]. AND HULL ASSEMBLER Aaliyah Hector - 01/02/2013 3:46 PM CST pt wants to know if our fp can remove microdermal piercings, doesn't usually come to [facility] but wants adr that will do it all in one visit rather than look at it and then do it next visit AND HULL ASSEMBLER documented in this encounter Plan of Treatment Scheduled Procedures Name Priority Associated Diagnoses Date/Time RELEASE CARPAL TUNNEL Bilateral carpal tunnel sy ndrome documented as of this encounter Visit Diagnoses Not on filedocumented in this encounter Care Teams Airport Utility Worker Relationship Specialty Start Date End Date Unassigned, Provider PCP - General 03/28/06 08/26/[address] [place] [address] documented as of this encounter
--- OUTSIDE RECORDS SUMMARY | 2022-09-28 11:44 | XMS_ITS | Encounter Summary ---
:1989 Author Organization [facility] Address [address] [place] [address] Care Team Providers Name Role Phone Unassigned, Provider Primary Care Provider Unavailable Reason for Visit Reason Onset Date Comments DIARRHEA 07/22/2012 Encounter Details Date Type Department Care Team Description 07/22/2012 Telephone Careline Unassigned, Provider DIARRHEA [address] [place], [place] [address] [place] [address] Social History Tobacco Use Types Packs/Day Years Used Date Smoking Tobacco: Never Assessed Sex Assigned at Date Recorded Not on file documented as of this encounter Nursing Notes Aissatou Nichols RN - 07/22/2012 11:51 AM CDT Called patient . 07/20 was out drinking that night , had 6 screwdrivers ( not a drinker normally ) Tuesday the next day had spins and then slept . 3:00 am fell asleep when the spins stopped . Woke upfriday 07/22 and felt fine . 8:30am : did note some nausea and soft stool . Rested and then watery stool times one . Light brown in color . Drank water ( very little ) , cereal and milk . Improved and stomache hurting intermittently . Two stools all day . Yesterday Foods eaten : Broccoli and Six slices of cheese ,chocolate cereal . Milk ( small amount ) Honey and butter toast . Pepperoni pizza . [place] ok , not uncomfortable . Was out to bar again but did not drink last night . Slept all night , Woke up today and vomited once 11am . Diarrhea today : four times . Stomache not hurting at this time . Drinking gateraide . Last void : 11am . Mouth is wet , crying as upset earlier . Temp is 100.5 earlier . TRIAGE REFERENCE: DIARRHEA - ADULT CNG (c) 2010 STAT SYMPTOMS: None per guideline . PMH: not BC pill . HOME TREATMENT: Discussed per guideline More than 5 liquid stools in 24 hrs: clear liquids with calories, no caffeine alcohol, or fruit juice Fewer than 5 liquid stools: no fruit juice, no dairy products, decrease roughage, bland, lowfat diet Decrease stress, increase rest PLAN : Recommend home treatment at this time . If not improved in the next hr , or if worsens , change in status then to be seen . Aissatou Nichols RN Shyann Mcwilliams - 07/22/2012 11:40 AM CDT Which care system or clinic is the patient [facility] What would caller have done if unable to contact the CareLine?Seek Urgent Care Situation: Pt has had chills, diarrhea, body aches and for the last 2 days after going to the bar and drinking screwdrivers . Pt does not drink very much and never drinks screwdrivers . Family is telling her to be seen Marked urgent Plan:A nurse will call you back within the hour. If you have not received a callback, please call [phone] and state that you are waiting for a callback. documented in this encounter Plan of Treatment Scheduled Procedures Name Priority Associated Diagnoses Date/Time RELEASE CARPAL TUNNEL Bilateral carpal tunnel sy ndrome documented as of this encounter Visit Diagnoses Not on filedocumented in this encounter Care Teams Account Executive Agribusiness Relationship Specialty Start Date End Date Unassigned, Provider PCP - General 03/28/06 08/26/[address] [place] [address] documented as of this encounter
--- OUTSIDE RECORDS SUMMARY | 2022-09-28 11:44 | XMS_ITS | Encounter Summary ---
:1989 Author [facility] Address [address] [place] [address] Care Team Providers Name Role Phone Jaiden Angulo MD Primary Care Provider Encounter Details Date Type Department Care Team Description 06/17/1997 Office Visit [facility] Sid Urena, OTHER SPECIFIED VIRAL [address] [place], [place] [address] Social History Tobacco Use Types Packs/Day Years Used Date Smoking Tobacco: Never Assessed Sex Assigned at Date Recorded Not on file documented as of this encounter Progress Notes Sid Urena - 06/17/1997 12:00 AM CDTS: Wart on the right thumb. O: Wart in the periungual area on the right thumb. Treated with Liquid Nitrogen. A: Wart treated. P: Return to clinic prn. cc: documented in this encounter Plan of Treatment Scheduled Procedures Name Priority Associated Diagnoses Date/Time RELEASE CARPAL TUNNEL Bilateral carpal tunnel sy ndrome documented as of this encounter Visit Diagnoses Diagnosis Other specified viral warts documented in this encounter Care Teams Vp Ad Products And Planning Relationship Specialty Start Date End Date Jaiden Angulo MD PCP - General 10/20/1996 03/27/06 [facility] [address] [place] [address] documented as of this encounter
--- OUTSIDE RECORDS SUMMARY | 2022-09-28 11:44 | XMS_ITS | Encounter Summary ---
:1990 Author Organization [facility] Address [address] [place] [address] Care Team Providers Name Role Phone Jaiden Angulo MD Primary Care Provider Encounter Details Date Type Department Care Team Description 10/21/1995 Office Visit [facility] Jaciel Angulo, [place] [address] [facility] [address] conditions classified [place], [place] [address] unspecified site [phone] Social History Tobacco Use Types Packs/Day Years [...] site documented in this encounter Care Teams Manager Restaurant Relationship Specialty Start Date End Date Jaiden Angulo MD PCP - General 10/20/1996 03/27/06 [facility] [address] [place], [place] [id number] documented as of this encounter
--- OUTSIDE RECORDS SUMMARY | 2022-09-28 11:44 | XMS_ITS | Encounter Summary ---
:1990 Author Organization [facility] Address [address] [place] [address] Care Team Providers Name Role Phone Unassigned, Provider Primary Care Provider Unavailable Reason for Visit Reason Comments SKIN PROBLEM Microdermal piercing, remova l of foreign body Encounter Details Date Type Department Care Team Description 01/09/2013 Office Visit [facility] Lela Tolbert, Foreign body (FB) in [address] [facility] soft tissue ([place] [address] [place] [address] RD Dx) [phone] [place] [id number] (Wo rk) Social History Tobacco Use Types Packs/Day Years Used Date Smoking Tobacco: Every Day Cigarettes 0.3 Smokeless Tobacco: Never Alcohol Use Standard Drinks/Week Comments Yes 0 (1 standard drink = 0.6 oz pure alcoho l) Rare Sex Assigned at Date Recorded Not on file documented as of this encounter Last Filed Vital Signs Vital Sign Reading Time Taken Comments Blood Pressure 126/78 01/09/2013 2:05 PM [facility] INCOME Pulse 103 01/09/2013 2:05 PM [facility]COM[facility] Temperature 36.8 ??C (98.3 ??F) 01/09/2013 2:05 PM [facility] INCOME Respiratory Rate - - Oxygen Saturation - - Inhaled Oxygen Concentration - - Weight 47.1 kg (103 lb 12.8 oz) 01/09/2013 2:05 PM [facility]COM[facility] Height 154.9 cm (5' 1) 01/09/2013 2:05 PM [facility] INCOME Body Mass Index 19.61 01/09/2013 2:05 PM [facility] INCOME documented in this encounter Progress Notes Lela Tolbert MD - 01/10/2013 8:07 PM CST Subjective Maggie Gonzalez is a 22 yr old female who presents to clinic with concern about some microdermal piercings she had done some time ago, that she would like to have removed. She has removed several of the anchors on her own, has had multiple piercings in the past, and that has gone relatively well for her, but she has a couple that she's having a harder time finding under the surface, and one has developed a very large red/brown scar over it, and she's not at all sure where the anchor is now. OBJECTIVE: Blood pressure 126/78, pulse 103, temperature 98.3 ??F (36.8 ??C), temperature source Oral, height 5' 1 (1.549 m), weight 103 lb 12.8 oz (47.083 kg), last menstrual period 11/06/2012. generally healthy appearing 22 yo female in no apparent distress Multiple previous and current ochoa sites on skin, previous 12 along right flank, two remaining anchors in place at about umbilicus level ASSESSMENT: microdermal piercings; foreign bodies PLAN: Informed consent given by patient Areas injected under and around two of anchor sites, with lidocaine and epinephrine. 1-3 mm incisions made in skin around sites, anchor removing tool applied to anchors which were then pulled from skinwithout discomfort Wounds dressed with pressure dressing and bacitracin, sutures not needed Wound care reviewed Call if any concerns, questions, or problems ER FIXED INCOME documented in this encounter Plan of Treatment Scheduled Procedures Name Priority Associated Diagnoses Date/Time RELEASE CARPAL TUNNEL Bilateral carpal tunnel sy ndrome documented as of this encounter Visit Diagnoses Diagnosis Foreign body (FB) in soft tissue - Prima ry Residual foreign body in soft tissue documented in this encounter Care Teams Lab Analyst Relationship Specialty Start Date End Date Unassigned, Provider PCP - General 03/28/06 08/26/[address] [place] [address] documented as of this encounter
--- OUTSIDE RECORDS SUMMARY | 2022-09-28 11:44 | XMS_ITS | Encounter Summary ---
:1989 Author Organization [facility] Address [address] [place] [address] Care Team Providers Name Role Phone Lela Tolbert MD Primary Care Provider Encounter Details Date Type Department Care Team Description 06/15/1999 Orders Only [facility] Sid Urena MD Social History Tobacco Use Types Packs/Day Years Used Date Smoking Tobacco: Never Assessed Sex Assigned at Date Recorded Not on file documented as of this encounter Plan of Treatment Scheduled Procedures Name Priority Associated Diagnoses Date/Time RELEASE CARPAL TUNNEL Bilateral carpal tunnel sy ndrome documented as of this encounter Visit Diagnoses Not on filedocumented in this encounter Care Teams Rn Clinical Trials Relationship Specialty Start Date End Date Lela Tolbert MD PCP - General Family Practice 08/27/[address] [place] [address] documented as of this encounter
--- OUTSIDE RECORDS SUMMARY | 2022-09-28 11:44 | XMS_ITS | Encounter Summary ---
:1990 Author Organization [facility] Address [address] [place] [address] Care Team Providers Name Role Phone Jaiden Angulo MD Primary Care Provider Encounter Details Date Type Department Care Team Description 03/08/1996 Office Visit [facility], Sheldon Andrews, Hypermetropia; [address] OD Examination of eyes and visi on [place], [place] [address] Social History Tobacco Use Types Packs/Day Years Used Date Smoking Tobacco: Never Assessed Sex Assigned at Date Recorded Not on file documented as of this encounter Plan of Treatment Scheduled Procedures Name Priority Associated Diagnoses Date/Time RELEASE CARPAL TUNNEL Bilateral carpal tunnel sy ndrome documented as of this encounter Visit Diagnoses Diagnosis Hypermetropia Examination of eyes and vision documented in this encounter Care Teams Client Care Representative Relationship Specialty Start Date End Date Jaiden nAgulo MD PCP - General 10/20/1996 03/27/06 [facility] [address] [place] [address] documented as of this encounter
--- OUTSIDE RECORDS SUMMARY | 2022-09-28 11:44 | XMS_ITS | Encounter Summary ---
:1989 Author Organization [facility] Address [address] [place] [address] Care Team Providers Name Role Phone Jaiden Angulo MD Primary Care Provider Reason for Visit Reason Comments INJURY VIA INTERFACE Encounter Details Date Type Department Care Team Description 03/02/1999 Office Visit [facility] SPRAIN/ STRAIN OF ANKLE [facility] [address] [place], [place] [address] Social History Tobacco Use Types Packs/Day Years Used Date Smoking Tobacco: Never Assessed Sex Assigned at Date Recorded Not on file documented as of this encounter Progress Notes Duran Chaparrita L - 03/02/1999 12:00 AM CDTID: Patient is a 8 -year-old girl accompanied by her mother. CHIEF COMPLAINT: Fell and hurt her right ankle. HPI: Patient was playing outside, tripped and fell wearing sandals and says that she had a inversion injury of her right ankle. She was able to walk into the house. She is not complaining of pain. Mother gave her Tylenol and placed ice on the ankle before coming here. This happened about 7 pm tonight. No history of earlier ankle sprain. Mother does note that she is very concerned since patient's father had a very severe ankle and foot fracture recently requiring surgery. O: Weight 60 pounds. Temperature 98.9. Pulse 96. Respiratory rate 18. In general this is a thin well nourished girl in no acute distress. Pleasant and cooperative during examination. Musculoskeletal examination the right ankle has a small amount of swelling over the lateral malleolus. There is no ecchymosis. No tenderness with palpation over the lateral medial malleolus. No tenderness with palpation over the lateral ligaments when patient is distracted. She complains of pain otherwise. She has full range of motion. Negative drawer sign. No laxity in the metatarsal and navicular joint. Patient is able to weight bear although she states that this makes her foot hurt worse. Sensory and circulation examination are normal in both feet. A: Right ankle sprain. P: Spent approximately 20 minutes with patient discussing the pros and cons of x-ray. I do think that the physical examination is deemed x-ray necessary at this time. Recommended to mom that she treat aggressively with ice over the next 24 to 36 hours. Can treat pain and swelling with ibuprofen. Patient was given single dose here in the office and should follow-up with primary care physician if not significantly improved in the next 48 to 72 hours. Anticipate a full recovery. IN SUMMARY: RIGHT ANKLE SPRAIN cc: documented in this encounter Plan of Treatment Scheduled Procedures Name Priority Associated Diagnoses Date/Time RELEASE CARPAL TUNNEL Bilateral carpal tunnel sy ndrome documented as of this encounter Visit Diagnoses Diagnosis Sprain of ankle, unspecified site documented in this encounter Care Teams Digital Computer Operator Relationship Specialty Start Date End Date Jaiden Angulo MD PCP - General 10/20/1996 03/27/06 [facility] [address] [place] [address] documented as of this encounter
--- OUTSIDE RECORDS SUMMARY | 2022-09-28 11:44 | XMS_ITS | Encounter Summary ---
:1990 Author Organization [facility] Address [address] [place] [address] Care Team Providers Name Role Phone Unassigned, Provider Primary Care Provider Unavailable Reason for Visit Reason Onset Date Comments Future Appointments 01/03/2013 Encounter Details Date Type Department Care Team Description 01/03/2013 Telephone [facility] Unknown, Physician Future Appointments [address] [facility] [address], [place] [address] [place], [place] [phone] (Wo rk) Social History Tobacco Use Types Packs/Day Years Used Date Smoking Tobacco: Never Assessed Sex Assigned at Date Recorded Not on file documented as of this encounter Nursing Notes Chasidy Krishna RN - 01/04/2013 1:34 PM CST Spoke with patient and she states piercing is not deep in skin, she states she removed the ones she had done in her chest herself but the skin there is more thin. She states the piercing was microderm piercing, so not deep. She states she would like to schedule an appointment with Dr. Tolbert for next week, she will have to check with her work schedule and call back to schedule at later time. Patient has no further questions or concerns at this time. Chasidy Krishna RN 01/04/2013, 1:45 PM NESS SUPPORT Chasidy Krishna RN - 01/04/2013 1:04 PM CST Consulted with Dr. Tolbert who states ok for patient to come into clinic to have piercing assessed, they may be able to be removed here in the clinic otherwise patient could be referred to plastic surgery. Left detailed message for patient on her cell phone per patient request. Left clinic number to call back with any questions or concerns. Chasidy Krishna RN 01/04/2013, 1:07 PM NESS SUPPORT Chasidy Krishna RN - 01/03/2013 4:58 PM CST Informed patient that we can look into this tomorrow and let her know, patient verbalizes understanding and agrees with plan. She requests detailed message to be left tomorrow. Chasidy Krishna RN 01/03/2013, 5:01 PM Estefania Mcmillan - 01/03/2013 4:51 PM CST RN, can you triage to see if this procedure can be done here or if she needs to go somewhere else? Juan Manuel Mathew - 01/03/2013 3:42 PM CST Patient would like appointment with: Any Provider Patient requesting appointment for: Removal of 2 piercings on the rt hip Wants/Needs to be seen within: As soon as possible Additional Comments: Rt hip piercing 2 of them. Right by the hip bone area. One in sunken in and scar tissue growing over it and is raised and inflamed. The other one gets infected easily. PT has had MicroDermo piercing for 3 years. The airline reservationist, each airline reservationist has 1-3 holes in them that has connected tissuethat is grows between, is underneath the skin and they need to be removed also and top is stripped and won't stay on. Pt states she is hearing impaired and would like someone w/o a heavy accent so she can understand Is it okay to leave detailed message on your voicemail? yes Juan Manuel Au NESS SUPPORT documented in this encounter Plan of Treatment Scheduled Procedures Name Priority Associated Diagnoses Date/Time RELEASE CARPAL TUNNEL Bilateral carpal tunnel sy ndrome documented as of this encounter Visit Diagnoses Not on filedocumented in this encounter Care Teams Neonatal Pediatric Nurse Relationship Specialty Start Date End Date Unassigned, Provider PCP - General 03/28/06 08/26/[address] [place] [address] documented as of this encounter
--- OUTSIDE RECORDS SUMMARY | 2022-09-28 11:44 | XMS_ITS | Encounter Summary ---
:1989 Author Organization [facility] Address [address] [place] [address] Care Team Providers Name Role Phone Lela Tolbert MD Primary Care Provider Encounter Details Date Type Department Care Team Description 06/02/1999 Orders Only [facility] Tamiko Dowd MD Social History Tobacco Use Types Packs/Day Years Used Date Smoking Tobacco: Never Assessed Sex Assigned at Date Recorded Not on file documented as of this encounter Plan of Treatment Scheduled Procedures Name Priority Associated Diagnoses Date/Time RELEASE CARPAL TUNNEL Bilateral carpal tunnel sy ndrome documented as of this encounter Visit Diagnoses Not on filedocumented in this encounter Care Teams Care Giver Relationship Specialty Start Date End Date Lela Tolbert MD PCP - General Family Practice 08/27/[address] [place] [address] documented as of this encounter
--- OUTSIDE RECORDS SUMMARY | 2022-09-28 11:44 | XMS_ITS | Encounter Summary ---
:1990 Author Organization [facility] Address [address] [place] [address] Care Team Providers Name Role Phone Jaiden Angulo MD Primary Care Provider Reason for Visit Reason Comments EYE IRRITATION VIA INTERFACE Encounter Details Date Type Department Care Team Description 06/02/1999 Office Visit [facility] Tamiko Dowd MD CONJUNCTIVITIS NOS [address] [place], [place] [address] Social History Tobacco Use Types Packs/Day Years Used Date Smoking Tobacco: Never Assessed Sex Assigned at Date Recorded Not on file documented as of this encounter Progress Notes Tamiko Dowd - 06/02/1999 12:00 AM CDTS: Maggie is [id number]. She came with her father with a concern of both eyes red and irritated since yesterday. The eyes have been mattery for a couple of days. No fever. Sniffle for a few days. No cough. She has been swimming almost every day this past week. She goes to [facility] outdoor pool which is usually packed. O: Weight: 60 pounds. Temperature: 97.8 degrees. HEENT: Significant injected sclera with slight swelling, conjunctivae are bright red. PERRLA, fundi normal. Good range of motion of the eyeball. TMs are normal. Pharynx: Clear. A: Bilateral conjunctivitis. P: Sodium Sulamyd eyedrop q. 2-4 hours until it is clear. Prevention of recurrent conjunctivitis in the future. Since there is no shower facility in the swimming pool area, encouraged her to bring some Murine or Visine or eye wash solution to use after she is done swimming. cc: documented in this encounter Plan of Treatment Scheduled Procedures Name Priority Associated Diagnoses Date/Time RELEASE CARPAL TUNNEL Bilateral carpal tunnel sy ndrome documented as of this encounter Visit Diagnoses Diagnosis Conjunctivitis unspecified Conjunctivitis, unspecified documented in this encounter Care Teams Director Of Outreach Relationship Specialty Start Date End Date Jaiden Angulo MD PCP - General 10/20/1996 03/27/06 [facility] [id number] [place] [address] documented as of this encounter
--- OUTSIDE RECORDS SUMMARY | 2022-09-28 11:44 | XMS_ITS | Encounter Summary ---
:1990 Author Organization [facility] Address [address] [place] [address] Care Team Providers Name Role Phone Lela Tolbert MD Primary Care Provider Encounter Details Date Type Department Care Team Description 06/15/2000 Orders Only Tamiko Ricks MD [address] [place], [place] [phone] Social History Tobacco Use Types Packs/Day Years Used Date Smoking Tobacco: Never Assessed Sex Assigned at Date Recorded Not on file documented as of this encounter Plan of Treatment Scheduled Procedures Name Priority Associated Diagnoses Date/Time RELEASE CARPAL TUNNEL Bilateral carpal tunnel sy ndrome documented as of this encounter Procedures Procedure Name Priority Date/Time Associated Diagnosis Comme nts STREP GRP A, RAPID Waiting 06/15/2000 4:55 PM Res ults for this SCREEN CDT procedure are i n the results section. BOBY PREP Waiting 06/15/2000 4:55 PM Results f or this CDT procedure are i n the results section. documented in this encounter Results RAPID, GPA STREP SCREEN (WAITI (06/15/2000 4:55 PM CDT) [facility] gist Method Time Signature Patient Home [id number] [facility] Phone # Patient Work None [facility] Phone # Grp A Rapid Negative [facility] Screen Grp A Culture Negative [facility] Final Specimen Anatomical Collection Method Collection Time Receive d Time (Source) Location / / Volume Laterality 06/15/2000 4:55 PM 0 4:55 CDT PM CDT Tamiko Dowd MD LAB_1 Performing Organization Address City/State/ZIP Code Phon e Number [facility] [phone] [facility] [address] [place] [phone] BOBY PREP (06/15/2000 4:55 PM CDT) P athologist Signature BOBY Negative [facility] Source LEFT ARM [facility] Specimen Anatomical Collection Method Collection Time Receive d Time (Source) Location / / Volume Laterality 06/15/2000 4:55 PM 0 4:55 CDT PM CDT So Polly Dowd MD LAB_1 Performing Organization Address City/[facility] Code Phon e Number [facility] [employer] [phone] [phone] documented in this encounter Visit Diagnoses Not on filedocumented in this encounter Care Teams Cleaning Team Member Relationship Specialty Start Date End Date Lela Tolbert MD PCP - General Family Practice 08/27/[address] [place] [address] documented as of this encounter
--- OUTSIDE RECORDS SUMMARY | 2022-09-28 11:44 | XMS_ITS | Encounter Summary ---
:1990 Author Organization [facility] Address [address] [place] [address] Care Team Providers Name Role Phone Jaiden Angulo MD Primary Care Provider Reason for Visit Reason Comments INJURY, TOES Encounter Details Date Type Department Care Team Description 07/13/1999 Telephone Careline Yury Faye RN INJURY, TOES [address] [place], [place] [phone] [facility] [phone] [facility] [address] Social History Tobacco Use Types Packs/Day Years Used Date Smoking Tobacco: Never Assessed Sex Assigned at Date Recorded Not on file documented as of this encounter Nursing Notes 07/13/1999 11:59 PM CDT >> CALL RECEIVED. Contact: mother [phone] >> YURY FAYE 07/13/1999 05:58 pm Was running and stubbed her toe. 5th digit ? foot. It is out of alignment. Very painful and pt is crying. documented in this encounter Plan of Treatment Scheduled Procedures Name Priority Associated Diagnoses Date/Time RELEASE CARPAL TUNNEL Bilateral carpal tunnel sy ndrome documented as of this encounter Visit Diagnoses Not on filedocumented in this encounter Care Teams Appeals Reviewer Veteran Relationship Specialty Start Date End Date Jaiden Angulo MD PCP - General 10/20/1996 03/27/06 [facility] [address] [place] [address] documented as of this encounter
--- OUTSIDE RECORDS SUMMARY | 2022-09-28 11:44 | XMS_ITS | Encounter Summary ---
:1990 Author [email or web address] Address [address] [place] [address] Care Team Providers Name Role Phone Jaiden Angulo MD Primary Care Provider Encounter Details Date Type Department Care Team Description 12/01/1997 Office Visit [facility] Adrian Pickering , [place] [address] [place] [address] [facility] [address] [place], [place] [address] (Wo rk) Social History Tobacco Use Types Packs/Day Years Used Date Smoking Tobacco: Never Assessed Sex Assigned at Date Recorded Not on file documented as of this encounter Progress Notes Adrian Ibarra - 12/01/1997 12:00 AM CSTS. S/T, fevers, stomachache since last night. No vomiting or diarrhea. Not taking fluids well. O. Alert, NAD. Temp. 102.2. TM's are Nl. bilaterally. Throat reveals mild cobblestoning. Neck is supple. Lungs are clear in all cannon. Heart - Regular rate and rhythm. Abdomen is soft and nontender. RSS is Neg. A. URI P. Push fluids. Tylenol q 4-6 hrs. F/U in 2 days if not improving. cc: AL CHAIRSIDE ASSISTANT documented in this encounter Plan of Treatment Scheduled Procedures Name Priority Associated Diagnoses Date/Time RELEASE CARPAL TUNNEL Bilateral carpal tunnel sy ndrome documented as of this encounter Visit Diagnoses Diagnosis Acute upper respiratory infections of un specified site documented in this encounter Care Teams Service Crew Supervisor Relationship Specialty Start Date End Date Jaiden Angulo MD PCP - General 10/20/1996 03/27/06 [facility] [address] [place] [address] documented as of this encounter
--- OUTSIDE RECORDS SUMMARY | 2022-09-28 11:44 | XMS_ITS | Encounter Summary ---
:1990 Author Organization [facility] Address [address] [place] [address] Care Team Providers Name Role Phone Jaiden Angulo MD Primary Care Provider Reason for Visit Reason Comments EYE DISCHARGE cheek tenderness with nasal congestion for 2 weeks Encounter Details Date Type Department Care Team Description 06/01/1999 Telephone Careline Aurea Sorenson RN EYE DISCHARGE (cheek [address] AFTER HOU[facility] - tenderness with nasal [place], [place] [address] CARELINE congestion for 2 [phone] weeks) [place], [place] [id number] Social History Tobacco Use Types Packs/Day Years Used Date Smoking Tobacco: Never Assessed Sex Assigned at Date Recorded Not on file documented as of this encounter Nursing Notes 06/01/1999 11:59 PM CDT >> CALL RECEIVED. Contact: mj-Syvdal-[phone] >> AUREA SORENSON 06/01/1999 08:39 pm Right sclera pink. Has a creamy colored drainage from the eye. Mother did not see if there was crusting this am. Minimal lid swelling. No eye pain. Vision is nl. Has some nasal congestion for 2 weeks. Has some pain in left cheek area. No ear pain. No cough. No fever. PMH-mother doesn't remember if child has had sinus inf. or not no routine meds Advised mother to use warm compresses to remove drainage tonite and have child seen in clinic in the am. documented in this encounter Plan of Treatment Scheduled Procedures Name Priority Associated Diagnoses Date/Time RELEASE CARPAL TUNNEL Bilateral carpal tunnel sy ndrome documented as of this encounter Visit Diagnoses Not on filedocumented in this encounter Care Teams Manager Hospitality Relationship Specialty Start Date End Date Jaiden Angulo MD PCP - General 10/20/1996 03/27/06 [facility] [address] [place] [address] documented as of this encounter
--- OUTSIDE RECORDS SUMMARY | 2022-09-28 11:44 | XMS_ITS | Encounter Summary ---
:1990 Author Organization [facility] Address [address] [address] Care Team Providers Name Role Phone Lela Tolbert MD Primary Care Provider Encounter Details Date Type Department Care Team Description 06/08/1999 Orders Only [facility] [address] [place], [place] [address] Social History Tobacco Use Types Packs/Day Years Used Date Smoking Tobacco: Never Assessed Sex Assigned at Date Recorded Not on file documented as of this encounter Plan of Treatment Scheduled Procedures Name Priority Associated Diagnoses Date/Time RELEASE CARPAL TUNNEL Bilateral carpal tunnel sy ndrome documented as of this encounter Visit Diagnoses Not on filedocumented in this encounter Care Teams Director Talent Management Relationship Specialty Start Date End Date Lela Tolbert MD PCP - General Family Practice 08/27/13 [address] [place] [address] documented as of this encounter
--- OUTSIDE RECORDS SUMMARY | 2022-09-28 11:44 | XMS_ITS | Encounter Summary ---
:1990 [facility] Address [address] [place] [address] Care Team Providers Name Role Phone Jaiden Angulo MD Primary Care Provider Reason for Visit Reason Comments EARACHE VIA INTERFACE Encounter Details Date Type Department Care Team Description 06/15/1999 Office Visit [facility] Sid Urena, INFEC OTITIS EXTERNA [address] [place], [place] [address] Social History Tobacco Use Types Packs/Day Years Used Date Smoking Tobacco: Never Assessed Sex Assigned at Date Recorded Not on file documented as of this encounter Progress Notes Sid Urena - 06/15/1999 12:[address], PEDIATRIC RESIDENT S: Maggie is a 9 year-old who comes in because her straddle bug this morning thought she detected a growth on her left eardrum. Maggie has had no pain in her ears, no drainage from her ears. She has had a stuffy nose for the past week. Maggie has been doing a lot of swimming over the past week. O: On exam this is a well-appearing 9 year-old in no acute distress. Right TM - no erythema, good light reflex. Left TM - a mild area of tympanosclerosis in the right lower quadrant of the eardrum. No erythema and no fluid noted. Nose - mild mucosal erythema and edema. Throat - no erythema, no lesions, no exudate. Neck - supple with shotty lymphadenopathy bilaterally. Heart - regular rate and rhythm without murmur. Lungs - clear to auscultation bilaterally. A: 1. Tympanosclerosis. P: As patient is going on vacation tomorrow for a week, she was given a prescription for Vo-Hilaria Drops to use t.i.d. to prevent swimmer's ear. Mom was reassured that the growth that was noted by the straddle bug is most likely the tympanosclerosis. The patient was seen and examined with Dr. iSd Urena. cc: documented in this encounter Plan of Treatment Scheduled Procedures Name Priority Associated Diagnoses Date/Time RELEASE CARPAL TUNNEL Bilateral carpal tunnel sy ndrome documented as of this encounter Visit Diagnoses Diagnosis Infective otitis externa, unspecified documented in this encounter Care Teams Nutrition Worker Relationship Specialty Start Date End Date Jaiden Angulo MD PCP - General 10/20/1996 03/27/06 [facility] [address] [place] [address] documented as of this encounter
--- OUTSIDE RECORDS SUMMARY | 2022-09-28 11:45 | XMS_ITS | Encounter Summary ---
:1990 Author [facility] Address [address] [place] [address] Care Team Providers Name Role Phone Jaiden Angulo MD Primary Care Provider Encounter Details Date Type Department Care Team Description 09/07/1994 Office Visit [facility] Jaiden Angulo MD Acute maxillary [address] [facility] sinusitis [place], [place] [address] [place] [id number] [place] [address] Social History Tobacco Use Types Packs/Day Years Used Date Smoking Tobacco: Never Assessed Sex Assigned at Date Recorded Not on file documented as of this encounter Plan of Treatment Scheduled Procedures Name Priority Associated Diagnoses Date/Time RELEASE CARPAL TUNNEL Bilateral carpal tunnel sy ndrome documented as of this encounter Visit Diagnoses Diagnosis Acute maxillary sinusitis documented in this encounter Care Teams Ski Patrol Officer Relationship Specialty Start Date End Date Jaiden Angulo MD PCP - General 10/20/1996 03/27/06 [facility] [address] [place], [place] [id number] documented as of this encounter
--- OUTSIDE RECORDS SUMMARY | 2022-09-28 11:45 | XMS_ITS | Encounter Summary ---
:1990 Author Organization [facility] Address [address] [address] Care Team Providers Name Role Phone Jaiden Angulo MD Primary Care Provider Encounter Details Date Type Department Care Team Description 09/28/1994 Office Visit [facility] Tamiko Liu MD Examination of ears [address] and hearing [place], [place] [address] Social History Tobacco Use Types Packs/Day Years Used Date Smoking Tobacco: Never Assessed Sex Assigned at Date Recorded Not on file documented as of this encounter Plan of Treatment Scheduled Procedures Name Priority Associated Diagnoses Date/Time RELEASE CARPAL TUNNEL Bilateral carpal tunnel sy ndrome documented as of this encounter Visit Diagnoses Diagnosis Examination of ears and hearing documented in this encounter Care Teams Physical Anthropologist Relationship Specialty Start Date End Date Jaiden Angulo MD PCP - General 10/20/1996 03/27/06 [facility] [address] [place] [address] documented as of this encounter
--- OUTSIDE RECORDS SUMMARY | 2022-09-28 11:45 | XMS_ITS | Encounter Summary ---
:[address] [facility] Address [address] [place] [address] Care Team Providers Name Role Phone Jaiden Angulo MD Primary Care Provider Encounter Details Date Type Department Care Team Description 07/26/1994 Office Visit [facility] Carol Sheffield MD Croup [address] [facility]. [address] [address] [place], [place] [address] [place] [address] [phone] Social History Tobacco Use Types Packs/Day Years Used Date Smoking Tobacco: Never Assessed Sex Assigned at Date Recorded Not on file documented as of this encounter Progress Notes Carol Sheffield - 07/26/1994 12:00 AM CDTS: Cough with hoarse voice, runny nose and barky cough with low-grade fever since 3 days ago. No Tylenol given today. Temperature now 101.5. Also, she has a rash on her back that was diagnosed as shingles several days ago. O: Cooperative girl in no respiratory distress with occasional harsh cough. Chest: clear. Pharynx: slightly red, no exudate. RTM: gerard, dull. LTM: gerard, dull. No anterior cervical adenopathy. Cluster of bullae under right scapula. P: Rapid strep screen negative. Observe on Tylenol. cc: documented in this encounter Plan of Treatment Scheduled Procedures Name Priority Associated Diagnoses Date/Time RELEASE CARPAL TUNNEL Bilateral carpal tunnel sy ndrome documented as of this encounter Visit Diagnoses Diagnosis Croup documented in this encounter Care Teams Marketing Representative Relationship Specialty Start Date End Date Jaiden Angulo MD PCP - General 10/20/1996 03/27/06 [facility] [address] [place] [address] documented as of this encounter
--- OUTSIDE RECORDS SUMMARY | 2022-09-28 11:45 | XMS_ITS | Encounter Summary ---
:1990 Author Organization [facility] Address [address] [place] [address] Care Team Providers Name Role Phone Jaiden Angulo MD Primary Care Provider Encounter Details Date Type Department Care Team Description 10/06/1994 Office Visit [facility] Sid Urena, Perforation of tympanic memb mason, unspecified; [address] MD Unspecified hearing loss [place], [place] [address] Social History Tobacco Use Types Packs/Day Years Used Date Smoking Tobacco: Never Assessed Sex Assigned at Date Recorded Not on file documented as of this encounter Plan of Treatment Scheduled Procedures Name Priority Associated Diagnoses Date/Time RELEASE CARPAL TUNNEL Bilateral carpal tunnel sy ndrome documented as of this encounter Visit Diagnoses Diagnosis Perforation of tympanic membrane, unspec ified Unspecified hearing loss documented in this encounter Care Teams Chairman & Chief Executive Officer Relationship Specialty Start Date End Date Jaiden Angulo MD PCP - General 10/20/1996 03/27/06 [facility] [address] [place] [address] documented as of this encounter
--- OUTSIDE RECORDS SUMMARY | 2022-09-28 11:45 | XMS_ITS | Encounter Summary ---
:1990 Author Organization [facility] Address [address] [place] [address] Care Team Providers Name Role Phone Jaiden Angulo MD Primary Care Provider Encounter Details Date Type Department Care Team Description 07/20/1994 Office Visit Larry Olivas M D Herpes zoster without mention [address] of complication [place], [place] [address] (Wo rk) Social History Tobacco Use Types Packs/Day Years Used Date Smoking Tobacco: Never Assessed Sex Assigned at Date Recorded Not on file documented as of this encounter Plan of Treatment Scheduled Procedures Name Priority Associated Diagnoses Date/Time RELEASE CARPAL TUNNEL Bilateral carpal tunnel sy ndrome documented as of this encounter Visit Diagnoses Diagnosis Herpes zoster without mention of complic ation documented in this encounter Care Teams Tour Sales Representative Relationship Specialty Start Date End Date Jaiden Angulo MD PCP - General 10/20/1996 03/27/06 [facility] [address] [place] [address] documented as of this encounter
--- OUTSIDE RECORDS SUMMARY | 2022-09-28 11:45 | XMS_ITS | Encounter Summary ---
:1990 Author Organization [facility] Address [address] [place] [address] Care Team Providers Name Role Phone Jaiden Angulo MD Primary Care Provider Encounter Details Date Type Department Care Team Description 02/18/1995 Orders Only [facility] Unknown, [facility] [address] [facility] [address] [place], [place] [address] [place] [address] [phone] (Wo rk) Social History Tobacco Use Types Packs/Day Years Used Date Smoking Tobacco: Never Assessed Sex Assigned at Date Recorded Not on file documented as of this encounter Procedure Notes Yung Soni MD - 02/18/1995 12:00 AM CDTAssociated Order(s): RADIOLOGIC STUDY ORDERING PHYSICIAN CLINICAL DATA:rule out fracture L hand INTERPRETATION:LEFT HAND: No obvious fractures or dislocations identified in the AP or oblique projections. Skeletal and soft tissue structures are superimposed in the lateral projection, not allowing adequate radiographic evaluation. Conclusion: No obvious fractures or dislocations in the AP or oblique projection. Sub-optimal positioning for the lateral projection. If there is any clinical suspicion regarding occult fracture, a follow-up study could be obtained in the next 10 to 14 days, at which time a fanned lateral view of the digits would be recommended. Yung Soni M.D. cc: Radiology BL Adrian Venegas MD documented in this encounter Plan of Treatment Scheduled Procedures Name Priority Associated Diagnoses Date/Time RELEASE CARPAL TUNNEL Bilateral carpal tunnel sy ndrome documented as of this encounter Procedures Procedure Name Priority Date/Time Associated Diagnosis Comme nts UNLISTED DX RADIOGRAPHIC 02/18/1995 Res ults for this PROCEDURE procedure are i n the results section . documented in this encounter Results RADIOLOGIC STUDY (02/18/1995) Anatomical Region Laterality Modality Other Specimen (Source) Anatomical Location Collection Method / Collectio n Time Received Time / Laterality Volume Narrative 02/18/1995 Ordered by an unspecified provider. Transcriptions Yung Soni MD - 02/18/1995 12:00 AM CDTORDERING PHYSICIAN CLINICAL DATA:rule out fracture L hand INTERPRETATION:LEFT HAND: No obvious fra ctures or dislocations identified in the AP or oblique projections. Skeletal and soft tissue structures are superimposed in the lateral projection, not allowing adequate radiographic evaluation. Conclusion: No obvious fractures or disl ocations in the AP or oblique projection. Sub-optimal positioning for the lateral projection. If there is any clinical suspicion regarding occult frac ture, a follow-up study could be obtained in the next 10 to 14 days, at w hich time a fanned lateral view of the digits would be recommended. Yung Soni M.D. cc: Radiology BL Adrian Venegas MD Physician Unknown [facility] documented in this encounter Visit Diagnoses Not on filedocumented in this encounter Care Teams Pretzel Twister Relationship Specialty Start Date End Date Jaiden Angulo MD PCP - General 10/20/1996 03/27/06 [facility] [address] [place] [address] documented as of this encounter
--- OUTSIDE RECORDS SUMMARY | 2022-09-28 11:45 | XMS_ITS | Encounter Summary ---
:1990 Author Organization [facility] Address [address] [place] [address] Care Team Providers Name Role Phone Jaiden Angulo MD Primary Care Provider Encounter Details Date Type Department Care Team Description 09/27/1994 Office Visit Tai Carreon MD Otalgia, unspecified [address] [place], [place] [phone] (Wo rk) Social History Tobacco Use Types Packs/Day Years Used Date Smoking Tobacco: Never Assessed Sex Assigned at Date Recorded Not on file documented as of this encounter Plan of Treatment Scheduled Procedures Name Priority Associated Diagnoses Date/Time RELEASE CARPAL TUNNEL Bilateral carpal tunnel sy ndrome documented as of this encounter Visit Diagnoses Diagnosis Otalgia, unspecified documented in this encounter Care Teams Scrap Wheeler Relationship Specialty Start Date End Date Jaiden Angulo MD PCP - General 10/20/1996 03/27/06 [facility] [address] [place], [place] [id number] documented as of this encounter
--- OUTSIDE RECORDS SUMMARY | 2022-09-28 11:45 | XMS_ITS | Encounter Summary ---
:[address] [facility] [facility] Address [address] [place] [address] Care Team Providers Name Role Phone Jaiden Angulo MD Primary Care Provider Encounter Details Date Type Department Care Team Description 02/18/1995 Office Visit [place] [facility] Adrian Venegas Injury, other and [address] [facility] [place] unspecified, [place], [place] [address] [facility] unspecified site [phone] [place] [address] Social History Tobacco Use Types Packs/Day Years Used Date Smoking Tobacco: Never Assessed Sex Assigned at Date Recorded Not on file documented as of this encounter Progress Notes Adrian Venegas MD - 02/18/1995 12:00 AM CDTWeight: 37 lbs. S: 4-year-old girl with left hand slammed in car door yesterday evening. O: Cooperative, in no acute distress, left hand shows some bruising, linear streak across the proximal phalange--left 3-4 fingers, full mobility present, x-ray normal. A: Soft tissue injury, base left 3-4 fingers. P: Reassured. Check as needed. cc: documented in this encounter Plan of Treatment Scheduled Procedures Name Priority Associated Diagnoses Date/Time RELEASE CARPAL TUNNEL Bilateral carpal tunnel sy ndrome documented as of this encounter Results OFFICE VISIT EST. LEVEL3 (02/18/1995 12:00 AM CDT) Specimen (Source) Anatomical Location Collection Method / Collectio n Time Received Time / Laterality Volume 02/18/1995 Adrian Venegas MD E&M CODES Performing Organization Address City/State/ZIP Code Phon e Number [facility] [phone] documented in this encounter Visit Diagnoses Diagnosis Injury, other and unspecified, unspecifi ed site documented in this encounter Care Teams Reiki Practitioner Relationship Specialty Start Date End Date Jaiden Angulo MD PCP - General 10/20/1996 03/27/06 [facility] [id number] [place] [address] documented as of this encounter
--- OUTSIDE RECORDS SUMMARY | 2022-09-28 11:45 | XMS_ITS | Encounter Summary ---
:1990 [facility] Address [address] [place] [address] Care Team Providers Name Role Phone Jaiden Angulo MD Primary Care Provider Encounter Details Date Type Department Care Team Description 01/06/1995 Office Visit [place] [facility] Sid Urena, Nonsuppurative otitis [address] MD media, not specified as [place], [place] [address] acute or chronic [phone] Social History Tobacco Use Types Packs/Day Years Used Date Smoking Tobacco: Never Assessed Sex Assigned at Date Recorded Not on file documented as of this encounter Plan of Treatment Scheduled Procedures Name Priority Associated Diagnoses Date/Time RELEASE CARPAL TUNNEL Bilateral carpal tunnel sy ndrome documented as of this encounter Visit Diagnoses Diagnosis Nonsuppurative otitis media, not specifi ed as acute or chronic documented in this encounter Care Teams Food And Beverage Order Clerk Relationship Specialty Start Date End Date Jaiden Angulo MD PCP - General 10/20/1996 03/27/06 [facility] [place] [address] [place] [address] documented as of this encounter
--- OUTSIDE RECORDS SUMMARY | 2022-09-28 11:45 | XMS_ITS | Encounter Summary ---
:1990 Author Organization [facility] Address [address] [place] [address] Care Team Providers Name Role Phone Jaiden Angulo MD Primary Care Provider Encounter Details Date Type Department Care Team Description 07/29/1994 Office Visit [place] [facility] Carol Sheffield MD Bronchitis, not [address] [address] [address] specified as acute or [place], [place] [address] [place], [place] chronic [phone] Social History Tobacco Use Types Packs/Day Years Used Date Smoking Tobacco: Never Assessed Sex Assigned at Date Recorded Not on file documented as of this encounter Progress Notes Carol Sheffield - 07/29/1994 12:00 AM CDTS: Continuing to run fever of 100. Still coughing and vomiting from cough. O: Active, very slender girl with frequent, harsh cough. Chest: clear. Pharynx: very red with no exudate. RTM: gerard, dull. LTM: gerard, dull. No anterior cervical adenopathy. P: Amoxicillin 250 milligrams t.i.d. x 10 days. cc: documented in this encounter Plan of Treatment Scheduled Procedures Name Priority Associated Diagnoses Date/Time RELEASE CARPAL TUNNEL Bilateral carpal tunnel sy ndrome documented as of this encounter Visit Diagnoses Diagnosis Bronchitis, not specified as acute or ch ronic documented in this encounter Care Teams Senior Lead Project Manager Relationship Specialty Start Date End Date Jaiden Angulo MD PCP - General 10/20/1996 03/27/06 [facility] [address] [place] [address] documented as of this encounter
--- OUTSIDE RECORDS SUMMARY | 2022-09-28 11:46 | XMS_ITS | Encounter Summary ---
:1990 Author Organization [facility] Address [address] [place] [address] Care Team Providers Name Role Phone Jaiden Angulo MD Primary Care Provider Encounter Details Date Type Department Care Team Description 04/30/1994 Office Visit [place] Leigh Ann Adkins, Routine inf ant or child health check; Pediatrics LAUNCH OPERATOR, [employer] Need for prophylactic vaccination with u nspecified combined vaccine; [address] C/O Unspecified hearing loss [place], [place] [address] [facility] [phone] [place] [address] Social History Tobacco Use Types Packs/Day Years Used Date Smoking Tobacco: Never Assessed Sex Assigned at Date Recorded Not on file documented as of this encounter Plan of Treatment Scheduled Procedures Name Priority Associated Diagnoses Date/Time RELEASE CARPAL TUNNEL Bilateral carpal tunnel sy ndrome documented as of this encounter Visit Diagnoses Diagnosis Routine or child health check Need for prophylactic vaccination with u nspecified combined vaccine Unspecified hearing loss documented in this encounter Care Teams Food Preparation Worker Relationship Specialty Start Date End Date Jaiden Angulo MD PCP - General 10/20/1996 03/27/06 [facility] [address] [place] [address] documented as of this encounter
--- OUTSIDE RECORDS SUMMARY | 2022-09-28 11:46 | XMS_ITS | Encounter Summary ---
:1990 Author Organization [facility] Address [address] [place] [address] Care Team Providers Name Role Phone Jaiden Angulo MD Primary Care Provider Encounter Details Date Type Department Care Team Description 10/28/1993 Office Visit [place] [facility] Klashnya, [place] Unspecified otitis [address] [place], [place] [address] [facility] [phone] 00 [place] [address] Social History Tobacco Use Types Packs/Day Years Used Date Smoking Tobacco: Never Assessed Sex Assigned at Date Recorded Not on file documented as of this encounter Plan of Treatment Scheduled Procedures Name Priority Associated Diagnoses Date/Time RELEASE CARPAL TUNNEL Bilateral carpal tunnel sy ndrome documented as of this encounter Visit Diagnoses Diagnosis Unspecified otitis media documented in this encounter Care Teams Rn Case Management Relationship Specialty Start Date End Date Jaiden Angulo MD PCP - General 10/20/1996 03/27/06 [facility] [address] [place] [address] documented as of this encounter
--- OUTSIDE RECORDS SUMMARY | 2022-09-28 11:46 | XMS_ITS | Clinical Summary ---
:1990 Author Organization [facility] [place] [address] Care Team Providers Name Role Phone Gladis Frye DO Primary Care Provider [phone] Allergies No known active allergies Medications Medication Sig Dispensed Refills Start Date End Date Status [id number]-[id number] Take by mouth. 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 Dry skin dermatitis 12/09/2008 Excessive sweating 12/09/2008 Estimated Date of Delivery Comments Yes 08/31/2019 Resolved Problems Problem Noted Date Resolved Date Tobacco Use Disorder quit feb 12/09/2008 009 Immunizations Name Administration Dates Next Due Tdap 05/14/2010 Family History Medical History Relation Name Comments Diabetes Maternal Aunt Diabetes Maternal Grandfather Hyperlipidemia Maternal Grandfather Thyroid Disease Maternal Grandmother Cancer Mother cervical Alcohol/Drug Paternal Aunt Stroke Paternal Aunt Thyroid Disease Paternal Grandmother Psychiatric illness Sister depression Relation Name Status Comments Father Alive Maternal Aunt Maternal Grandfather Maternal Grandmother Mother Alive Paternal Aunt Paternal Grandfather Paternal Grandmother Sister Alive Social History Tobacco Use Types Packs/Day Years Used Date Former Smoker Cigarettes 0.5 4 Quit: 06/07/20 16 Smokeless Tobacco: Former User Tobacco Cessation: Counseling Given: No Alcohol Use Standard Drinks/Week Comments Not Currently 0 (1 standard drink = 0.6 oz pure alcoho l) 1 drink a month Alcohol Habits Answer Date Recorded How often do you have a drink containing alcohol? Not asked How many drinks containing alcohol do you have on a Not aske d typical day when you are drinking? How often do you have six or more drinks on one Not asked occasion? Comment: 1 drink a month 06/24/2015 Estimated Date of Delivery Comments Yes 08/31/2019 Sex Assigned at Date Recorded Not on file Obstetrics History Para Term AB IAB SAB Ectopic Multiple Living Live Births 2 0 0 0 1 1 0 0 0 0 Date Outcome GA Total Labor/2nd/3rd Weight Sex Delivery Anes PTL Farhana A 1 A5 Name Clin Labor IAB Current Last Filed Vital Signs Vital Sign Reading Time Taken Comments Blood Pressure 104/64 07/05/2019 9:38 AM CDT Pulse 105 07/05/2019 9:38 AM CDT Temperature 37.1 ??C (98.8 ??F) 07/05/2019 9:38 AM CDT Respiratory Rate 18 07/05/2019 9:38 AM CDT Oxygen Saturation 96% 07/05/2019 9:38 AM CDT Inhaled Oxygen Concentration - - Weight 74.8 kg (165 lb) 07/05/2019 9:38 AM CDT Height 155 cm (5' 1.02) 12/05/2017 5:07 PM LEATHER GRADER Body Mass Index 31.15 12/05/2017 5:07 PM LEATHER GRADER Plan of Treatment Health Maintenance Due Date Last Done Comments COVID-19 vaccine series (#1) 1990 Depression screening for age 12+ 08/25/2018 08/25/2017, 03/2017, 08/17/2016, Additional history exists BMI (ht and wt on same day) for 12/05/2018 12/05/2017, 08/07, age 18+ 03/08/2017, Additional history exists Tetanus booster 05/14/2020 05/14/2010 Pap test for age 21-65 02/06/2021 02/06/2018, 02/06/2018, 06/24/2015, Additional history exists Influenza for age 9-49 07/08/2022 Tdap Completed 05/14/2010 Hepatitis C screening for age Completed 04/24/2012, 2009 18-79 Results Not on filefrom Last 3 Months Insurance Payer Benefit Plan / Subscriber ID Effective Dates Phone Addre ss Type Group MOTOR VE[employer]VA [employer]OR [id number] 2011-Prese [phone] [id number] [place] [address] [place] [id number] 2018-Sin [address] [place] [address] (Home) [place] [id number] [address] Motor Vehicle Self 1990 [address] ([address]) [place] [address] Care Teams Ar Manager Relationship Specialty Start Date End Date Gladis Frye DO PCP - General Family Practice 08/04/[address] [id number]
--- OUTSIDE RECORDS SUMMARY | 2022-09-28 11:46 | XMS_ITS | Encounter Summary ---
:1990 Author [facility] Address [address] [place] [address] Care Team Providers Name Role Phone Jaiden Angulo MD Primary Care Provider Encounter Details Date Type Department Care Team Description 12/21/1993 Office Visit [place] [facility] Sid Urena, Unspecified otitis [address] MD [place], [place] [address] Social History Tobacco Use Types Packs/Day Years Used Date Smoking Tobacco: Never Assessed Sex Assigned at Date Recorded Not on file documented as of this encounter Plan of Treatment Scheduled Procedures Name Priority Associated Diagnoses Date/Time RELEASE CARPAL TUNNEL Bilateral carpal tunnel sy ndrome documented as of this encounter Visit Diagnoses Diagnosis Unspecified otitis media documented in this encounter Care Teams Jewelry Technician Relationship Specialty Start Date End Date Jaiden Angulo MD PCP - General 10/20/1996 03/27/06 [facility] [address] [place] [address] documented as of this encounter
--- OUTSIDE RECORDS SUMMARY | 2022-09-28 11:46 | XMS_ITS | Encounter Summary ---
:1990 Author Organization [facility] Address [address] [facility] [place] [address] Care Team Providers Name Role Phone Jaiden Angulo MD Primary Care Provider Encounter Details Date Type Department Care Team Description 01/18/1994 Office Visit Jaciel Angulo MD Unspecified otitis media [address] [place] [address] (Wo rk) Social History Tobacco Use Types Packs/Day Years Used Date Smoking Tobacco: Never Assessed Sex Assigned at Date Recorded Not on file documented as of this encounter Plan of Treatment Scheduled Procedures Name Priority Associated Diagnoses Date/Time RELEASE CARPAL TUNNEL Bilateral carpal tunnel sy ndrome documented as of this encounter Visit Diagnoses Diagnosis Unspecified otitis media documented in this encounter Care Teams Sanitary Engineer Relationship Specialty Start Date End Date Jaiden Angulo MD PCP - General 10/20/1996 03/27/06 [facility] [address] [place] [address] documented as of this encounter
[2022-09-28 15:15] LABS: HIV 1/2/P24 Combo Screen* Negative (Negative)
[2022-09-28 15:22] LABS: Hepatitis C Virus Antibody* Negative (Negative)
[2022-09-28 23:09] LABS: Chlamydia DNA Amplified* NOT DETECTED (No Detected); GC DNA Amplified* NOT DETECTED (No Detected)
[2022-09-29 23:48] LABS: Rapid Plasma Reagin (RPR) Non Reactive (Non Reactive)
== END 2022-09-28 10:31 | disposition home or self-care (01) ==
PROVIDERS: PCP Family Medicine; Visit Provider Family Medicine
DX: Z11.59 Encounter for screening for other viral diseases (principal); Z11.3 Encounter for screening for infections with a predominantly sexual mode of transmission
CPT/HCPCS: 86592; 86703; 86803; 87491; 87591

== ENCOUNTER 2022-12-03 20:00 | Outpatient (CLI) | payer MEDICAID, SELFPAY ==
--- OUTSIDE RECORDS SUMMARY | 2022-12-22 09:56 | XMS_ITS ---
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 842165 07 female Problem Dyspareunia in N94.10 Active 15953 001 female ALLERGIES Substance Reaction Event Type Date Status Duramorph Unknown Drug Allergy Apr, Active ENCOUNTERS Encounter Location Date Diagnosis [facility] [address] [place] Apr, S car pain L90.5 [place] [address] (pelvic fl oor dysfunction) M62 .89 [facility] [address] [place] Apr, [place] [address] [facility] [address] [place] Apr, [place] ([place] [address] dysfunctio n) M62.89 and Dyspareunia in f emale N94.10 [facility] [address] [place] Apr, [place] [address] [facility] [address] [place] Apr, P [place] ([place] [address] dysfunctio n) M62.89 and Dyspareunia in f emale N94.10 [facility] [address] [place] [address], [place] [address] [facility] [address] [place] March, P FD ([place] [address] dysfunctio n) M62.89 ; Dyspareunia in f emale N94.10 and Histo ry of vaginitis Z87.42 [facility] [address], [place] [address] [facility] [address] [place] March, P FD ([place] [address] dysfunctio n) M62.89 and Dyspareunia in f emale N94.10 [facility] [address] March, 2021 [place] [address] [facility] [address] [place] March, P FD ([place] [address] dysfunctio n) M62.89 and Dyspareunia in f ema N94.10 [facility] [address] March, [place], [place] [address] [facility] [address] [place], [place] [address] [facility] [address] [place] March, V aginal discharge N89.8 [place] [address] and Vagina l itching N89.8 [facility] [address] [place] March, [place] [address] area N89.8 [facility] [address] [place] Feb, [place] [address] [facility] [address] [place] Feb, P FD ([place] [address] dysfunctio n) M62.89 [facility] [address] [place] Feb, [place] [address] [facility] [address] [place] Feb, 2021 P FD ([place] [address] dysfunctio n) M62.89 and Dyspareunia in f ema N94.10 [facility] [address] Feb, 2021 [place], [place] [address] [facility] [address] [place] Feb, 2021 [place] [address] [facility] [address] [place] Feb, P FD ([place] [address] dysfunctio n) M62.89 [facility] [address] Jan, 2021 [place], [place] [address] [facility] [address] [place] Jan, 2021 [place] [address] [facility] [address] [place] Jan, P FD ([place] [address] dysfunctio n) M62.89 and Dyspareunia in f [facility] N94.10 [facility] [address] Jan, 2021 [place], [place] [address] [facility] [address] [place] Jan, 2021 [place] [address] N94.10 ; P FD (pelvic floor dysfunctio n) M62.89 and Recta l discharge R19.8 [facility] [address] Jan, 2021 [place], [place] [address] [facility] [address] [place] Jan, 2021 [place] [address] [facility] [address] [place] Jan, 2021 P FD ([place] [address] dysfunctio n) M62.89 [facility] [address] [place] Jan, L ow libido R68.82 [place] [address] Anorgasmia of female F52.31 [facility] [address] 15 Dec, 2021 [place] [address] F52.31 and E lam[place] for screening for en docrine disorder Z13.29 [facility] [address] 14 Dec, 2021 [place] [phone] [facility] [address] [place] Nov, P FD [place] [address] dysfunctio n) M62.89 ; Anorgasmia of fe male F52.31 and Infec tion B99.9 IMMUNIZATIONS No Known Immunizations SOCIAL HISTORY Qualifiers Date Never Smoker REASON FOR REFERRAL FUNCTIONAL STATUS PLAN OF CARE VITAL SIGNS Height 61.5 in 2022-04-19 Weight 155 lbs 2022-04-19 BMI 28.81 kg/m2 2022-04-19 Blood pressure systolic 126 mm Hg 2022-04-19 Blood pressure diastolic 68 mm Hg 2022-04-19 MEDICATIONS Medication Instructions Dosage Frequency Start Date End Date Duration S tatus Sertraline HCl Active Diflucan 150 MG Orally once, 1 tablet 09 March, day(s) A ctive repeat in 3 days 2021 if symptoms persist buPROPion HCl Active PROCEDURES Procedure Date Ordered Result Body Site ELECTRICAL STIMULATION April 15, 2022 ELECTRICAL STIMULATION March 29, 2022 TOMA, DNA, DIR PROBE March 08, 2022 ELECTRICAL STIMULATION January 22, 2022 ANAL/URINARY MUSCLE STUDY March 29, 2022 ELECTRICAL STIMULATION February 08, 2022 ANAL/URINARY MUSCLE STUDY April 08, 2022 ELECTRICAL STIMULATION March 16, 2022 ANAL/URINARY MUSCLE STUDY April 15, 2022 ELECTRICAL STIMULATION March 22, 2022 ANAL/URINARY MUSCLE STUDY January 11, 2022 MANUAL THERAPY March 22, 2022 ANAL/URINARY MUSCLE STUDY March 22, 2022 ANAL/URINARY MUSCLE STUDY February 02, 2022 MANUAL THERAPY March 16, 2022 ANAL/URINARY MUSCLE STUDY March 16, 2022 ANAL/URINARY MUSCLE STUDY February 22, 2022 MANUAL THERAPY February 08, 2022 ANAL/URINARY MUSCLE STUDY February 08, 2022 ANAL/URINARY MUSCLE STUDY March 01, 2022 MANUAL THERAPY January 22, 2022 ANAL PRESSURE RECORD January 11, 2022 DEHYDROEPIANDROSTERONE Dec 22, 2021 TOTAL CORTISOL Dec 22, 2021 PHYSICAL PERFORMANCE TEST February 22, 2022 GONADOTROPIN (FSH) Dec 22, 2021 ASSAY OF ESTRADIOL Dec 22, 2021 PHYSICAL PERFORMANCE TEST January 11, 2022 PHYSICAL PERFORMANCE TEST February 02, 2022 ELECTRICAL STIMULATION January 11, 2022 ELECTRICAL STIMULATION February 02, 2022 ELECTRICAL STIMULATION February 22, 2022 ELECTRICAL STIMULATION March 01, 2022 ELECTRICAL STIMULATION April 08, 2022 FREE ASSAY (FT-3) Dec 22, 2021 ASSAY THYROID STIM HORMONE Dec 22, 2021 ASSAY OF TOTAL TESTOSTERONE Dec 22, 2021 ASSAY OF TESTOSTERONE Dec 22, 2021 PHYSICAL PERFORMANCE TEST March 16, 2022 PHYSICAL PERFORMANCE TEST February 08, 2022 PHYSICAL PERFORMANCE TEST January 22, 2022 ASSAY OF SERUM POTASSIUM Dec 22, 2021 ANAL PRESSURE RECORD January 22, 2022 ASSAY OF FREE THYROXINE Dec 22, 2021 PHYSICAL PERFORMANCE TEST March 29, 2022 PHYSICAL PERFORMANCE TEST March 22, 2022 PHYSICAL PERFORMANCE TEST April 15, 2022 PHYSICAL PERFORMANCE TEST April 08, 2022 PHYSICAL PERFORMANCE TEST March 01, 2022 PHILLIPS VAG, DNA, DIR PROBE March 08, 2022 ANAL/URINARY MUSCLE STUDY January 22, 2022 MANUAL THERAPY March 29, 2022 MANUAL THERAPY April 08, 2022 MANUAL THERAPY April 15, 2022 ANAL PRESSURE RECORD March 01, 2022 MANUAL THERAPY February 22, 2022 ANAL PRESSURE RECORD February 22, 2022 MANUAL THERAPY February 02, 2022 ANAL PRESSURE RECORD February 02, 2022 MANUAL THERAPY January 11, 2022 GONADOTROPIN (LH) Dec 22, 2021 ANAL PRESSURE RECORD April 15, 2022 ANAL PRESSURE RECORD April 08, 2022 ASSAY OF SEX HORMONE GLOBUL Dec 22, 2021 ANAL PRESSURE RECORD March 29, 2022 ASSAY OF PROLACTIN Dec 22, 2021 TRICHOMONAS VAGIN, DIR PROBE March 08, 2022 MANUAL THERAPY March 01, 2022 ANAL PRESSURE RECORD February 08, 2022 ANAL PRESSURE RECORD March 16, 2022 ANAL PRESSURE RECORD March 22, 2022 RESULTS Name Result Date Reference Range BV/VAGINITIS PANEL DNA PROBE 2022-03-08 TOMA: DETECTED NOT DETECTED GARDNERELLA: NOT DETECTED NOT DETECTED TRICHOMONAS: NOT DETECTED NOT DETECTED POTASSIUM 2021-12-22 POTASSIUM 4.1 3.5-5.3 ESTRADIOL 2021-12-22 ESTRADIOL 66 DHEA SULFATE 2021-12-22 DHEA SULFATE 242 19-237 FSH 2021-12-22 FSH 7.6 LH 2021-12-22 LH 14.2 PROLACTIN 2021-12-22 PROLACTIN 9.9 T4, FREE 2021-12-22 T4, FREE 1.1 0.8-1.8 CORTISOL, TOTAL 2021-12-22 CORTISOL, TOTAL 13.0 TSH 2021-12-22 TSH 2.42 T3, FREE 2021-12-22 T3, FREE 2.5 2.3-4.2 SEX HORMONE BINDING GLOBULIN 2021-12-22 SEX HORMONE BINDING GLOBULIN 33 17- 124 TESTOSTERONE, TOTAL, LC/MS/MS 2021-12-22 TESTOSTERONE, TOTAL, MS 28 2-45 TESTOSTERONE, FREE 2021-12-22 TESTOSTERONE, FREE 3.4 0.2-5.0 REASON FOR VISIT Insurance Providers [facility] Member Patient Patient Patient Patient Patient Subscriber Subscriber Subscriber Group Insurance Plan Plan Plan Plan ID Relationship Address Phone Name Date of ID Name Date of No Type Insurance Insurance Insurance Coverage to Subscriber Address Phone Name Dates [facility] [address] [facility] self Maggie [id number] [facility] 2020 Melissa s [place] n [id number] [facility] 2021 [address] [facility] 2021 self Maggie [id number] [place] (CLIENT Melinda JENSEN (CLIENT [employer] 001 bill) s JENNA bill) n [id number] MEDICAL (GENERAL) HISTORY Type Description Date Medical History Abnormal Pap Medical History High Cholesterol Medical History Chicken Pox Medical History Depression/Anxiety Surgical History Tubes 1990 Surgical History Adnoids 2000 Surgical History [place] teeth 2007 Surgical History Tonsils 2009 Surgical History Surgical History tubal 08/2020 Surgical History hysterectomy 09/2020 Hospitalization History childbirth x2
== END 2022-12-03 20:01 | disposition home or self-care (01) ==
LOC: AMB 12-22 09:55
PROVIDERS: PCP Family Medicine; Visit Provider Family Medicine
DX: F29 Unspecified psychosis not due to a substance or known physiological condition (principal)

== ENCOUNTER 2023-01-27 10:45 | Outpatient (CLI) | payer MEDICAID, SELFPAY | END 2023-01-27 10:46 | disposition home or self-care (01) | LOC: NFLDREF 01-28 16:03 | PROVIDERS: PCP Family Medicine; Referring Provider Family Medicine; Visit Provider Family Medicine | DX: E66.3 Overweight (principal); F52.0 Hypoactive sexual desire disorder; R53.83 Other fatigue; E66.01 Morbid (severe) obesity due to excess calories; Z11.3 Encounter for screening for infections with a predominantly sexual mode of transmission; Z13.1 Encounter for screening for diabetes mellitus; Z13.6 Encounter for screening for cardiovascular disorders | CPT/HCPCS: 0353U; 80053; 80061; 81513; 82043; 82306; 82570; 82607; 82728; 83001; 83002; 84443; 86376; 87481; 87491; 87591; 87661 ==

== ENCOUNTER 2023-03-31 07:30 | Outpatient (RCR) | payer MEDICAID, SELFPAY | END 2023-07-29 23:59 | disposition home or self-care (01) | PROVIDERS: PCP Family Medicine; Visit Provider Family Medicine | DX: F52.0 Hypoactive sexual desire disorder (principal); Z51.89 Encounter for other specified aftercare | CPT/HCPCS: 97110; 97140; 97162 ==

== ENCOUNTER 2023-05-02 18:08 | Outpatient (CLI) | payer MEDICAID, SELFPAY ==
[2023-05-02 23:20] LABS: Chlamydia DNA Amplified* NOT DETECTED (No Detected); GC DNA Amplified* NOT DETECTED (No Detected)
== END 2023-05-02 18:09 | disposition home or self-care (01) ==
PROVIDERS: PCP Family Medicine; Visit Provider Nurse Practitioner Family
DX: Z11.3 Encounter for screening for infections with a predominantly sexual mode of transmission (principal)
CPT/HCPCS: 86703; 87491; 87591

== ENCOUNTER 2023-07-27 08:15 | Outpatient (CLI) | payer MEDICAID, SELFPAY ==
--- OUTSIDE RECORDS SUMMARY | 2023-07-29 14:41 | XMS_ITS | Patient Health Record ---
Author Name Unknown Organization [facility] Address [address] [place] [id number] Care Team Providers Care Senior Drupal Developer Name Role Phone Wagner Lombardo Primary Care Provider ALLERGIES Allergen (clinical drug ingredient) Drug/Non Drug Allergy documented on EMR Reaction Allergy Type Onset Date Status morphine Duramorph Unknown Drug Allergy Active REASON FOR REFERRAL No Information MEDICATIONS Medication SIG (Take, Route, Fr equency, Duration) Notes Start Date End Date Status Diflucan 150 MG 1 tablet Orally once , repeat in 3 days if symptoms persist for 1 day(s) 03/09/2022 Active buPROPion HCl Active Sertraline HCl Activ e SOCIAL HISTORY Tobacco Use: Social History Observation Description Date Details (start date - stop date) Never Smoker NA - NA Sex Assigned At : Social History Observation Description Sex Assigned At Unknown Tobacco Use/Smoking Question Answer Notes Are you a nonsmoker Alcohol Screen (Audit-C) Question Answer Notes Did you have a drink containing alcohol in the p ast year? Yes Points 0 Interpretation Negative PROBLEMS Problem Type ICD Code Onset Dates Problem Status W/U Status Risk SNOMED Code Notes Problem Anorgasmia of female (F52.31) Active confirmed 92389042 Problem Dyspareunia in female (N94.10) Active confirmed 39620212 PLAN OF TREATMENT No Information Insurance Providers Payer Name Payer Address Payer Phone Subscriber Number Group Number Insured Name Patient Relationship to Insured Coverage Start Date Coverage End Date UCARE 2021 MIKEY (CLIENT bill) [address] [place], [place] [id number] Maggie Gonzalez Self - patient is the insured 2 MEDICAL (GENERAL) HISTORY Medical History History ICD Code Abnormal Pap High Cholesterol Chicken Pox Depression/Anxiety Surgical History Surgery Date(Month/Year) Tubes 1990 Adnoids 2000 [place] teeth 2008 Tonsils 2009 tubal 08/2020 hysterectomy 09/2020 Hospitalization History Reason Date(Month/Year) childbirth x2
== END 2023-07-27 08:16 | disposition home or self-care (01) ==
LOC: NFLDREF 07-29 14:40
PROVIDERS: PCP Family Medicine; Referring Provider Family Medicine; Visit Provider Family Medicine
DX: E66.9 Obesity, unspecified (principal); E78.5 Hyperlipidemia, unspecified; R73.03 Prediabetes; E66.01 Morbid (severe) obesity due to excess calories
CPT/HCPCS: 80053; 80061

== ENCOUNTER 2023-08-22 18:21 | Outpatient (CLI) | payer MEDICAID, SELFPAY ==
[2023-08-22 23:34] LABS: Chlamydia DNA Amplified* NOT DETECTED (No Detected); GC DNA Amplified* NOT DETECTED (No Detected)
== END 2023-08-22 18:22 | disposition home or self-care (01) ==
PROVIDERS: PCP Family Medicine; Visit Provider Nurse Practitioner Family
DX: N89.8 Other specified noninflammatory disorders of vagina (principal)
CPT/HCPCS: 86592; 86703; 87491; 87536; 87591

== ENCOUNTER 2024-05-04 09:53 | Outpatient (CLI) | payer OTHER, SELFPAY ==
--- OUTSIDE RECORDS SUMMARY | 2024-05-04 09:55 | XMS_ITS | Clinical Summary ---
Author Organization [facility] Address [place], [place] [address] Care Team Providers Care Other Sales Support Worker Name Role Phone Gladis Frye DO Primary Care Provider Allergies No known active allergies Medications Medication Sig Dispensed Refills Start Date End Date Status [id number] ACID ORAL Take by mouth. 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 Dry skin dermatitis 12/09/2008 Excessive sweating 12/09/2008 Estimated Date of Delivery Comme nts Yes 08/31/2019 Resolved Problems Problem Noted Date Diagnosed Date Resolved Date Tobacco Use Disorder quit dec 16 12/09/2008 01/20/2009 Immunizations Name Administration Dates Next Due Tdap 05/14/2010 Family History Medical History Relation Name Comments Diabetes Maternal Aunt Diabetes Maternal Grandfather Hyperlipidemia Maternal Grandfather Thyroid Disease Maternal Grandmother Cancer Mother cervical Alcohol/Drug Paternal Aunt Stroke Paternal Aunt Thyroid Disease Paternal Grandmother Psychiatric illness Sister depressi on Relation Name Status Comments Father Alive Maternal Aunt Maternal Grandfather Maternal Grandmother Mother Alive Paternal Aunt Paternal Grandfather Paternal Grandmother Sister Alive Social History Tobacco Use Types Packs/Day Years Used Date Smoking Tobacco: Former Cigarettes 0.5 4 0 06/07/2012 - 06/07/2016 Smokeless Tobacco: Former Tobacco Cessation:Counseling Given: No Alcohol Use Standard Drinks/Week Comments Not Currently 0 (1 standard drink = 0.6 oz pur e alcohol) 1 drink a month Estimated Date of Delivery Comme nts Yes 08/31/2019 Sex and Gender Information Value Date Recorded Sex Assigned at Not on file Gender Identity Not on file Sexual Orientation Not on file Obstetrics History Para Term AB IAB SAB Ectopic Multiple Livin g Live Births 2 0 0 0 1 1 0 0 0 0 Date Outcome GA Total Labor Labor/2nd/3rd Weight Sex Type Anes PTL Farhana A1 A5 Name Clin IAB Current Last Filed Vital Signs Vital Sign Reading Time Taken Comments Blood Pressure 104/64 07/05/2019 9:38 AM CDT Pulse 105 07/05/2019 9:38 AM CDT Temperature 37.1 ??C (98.8 ??F) 07/05/2019 9:38 AM CD T Respiratory Rate 18 07/05/2019 9:38 AM CDT Oxygen Saturation 96% 07/05/2019 9:38 AM CDT Inhaled Oxygen Concentration - - Weight 74.8 kg (165 lb) 07/05/2019 9:38 AM CDT Height 155 cm (5' 1.02) 12/05/2017 5:07 PM SILK FOLDER Body Mass Index 31.15 12/05/2017 5:07 PM SILK FOLDER Plan of Treatment Health Maintenance Due Date Last Done Comments Depression screening for age 12+ 08/25/2018 08/25/2017, 07/12/2017, 08/17/2016, Additional history exists BMI (ht and wt on same day) for age 18+ 12/05/2018 12/05/2017, 08/25/2017, 03/08/2017, Additional history exists Tetanus booster 05/14/2020 05/14/2010 Pap test for age 21-65 02/06/2021 8, 02/06/2018, 06/24/2015, Additional history exists COVID-19 vaccine series (2022- season) 2023 Influenza for age 9-49 07/08/2024 Tdap Completed 05/14/2010 HIV for age 15-65 Completed 04/24/2012, , 04/27/2011, Additional history exists Hepatitis C screening for age 18-79 Completed 04/24/2012, 05/14/2010 Pneumococcal series for age 6-64 Aged Out No longer eligible based on patient's age to complete this topic Procedures Procedure Name Priority Date/Time Associated Diagnosis Comments AVIATION TECHNICIAN AIRCRAFT THIN PREP PAP SCREEN IMAGED Routine 02/06/2018 3:30 PM CDT ANTI HIV 1/2 Routine 04/24/2012 11:46 AM CDT Screen for STD (sexually transmitted disease) ANTI HCV Routine 04/24/2012 11:46 AM CDT Screen for STD (sexually transmitted disease) from Last 3 Months or Most Recently Relevant to Health Maintenance Results * AVIATION TECHNICIAN AIRCRAFT THIN PREP PAP SCREEN IMAGED (02/06/2018 3:30 PM CDT) Case Report Gynecologic Cytology Report ? Case: [id number] ? Authorizing Provider: ??June Berumen MD ? Collected: ? 02/06/2018 1530 ? First Screen: ?Debbie Huddleston ?Received: ?02/08/2018 1608 ? Specimen: ?AVIATION TECHNICIAN AIRCRAFT ThinPrep Vial Screening, Cervical/Vaginal ? 02/16/2018 12:24 PM CDT [facility] INTERPRETATION/ RESULT NEGATIVE FOR INTRAEPITHELIAL LESION OR MALIGNANCY (NIL) (none) 02/16/2018 12:24 PM CDT [facility] IMEN ADEQUACY Satisfactory for evaluation No endocervical component seen in a patient 02/16/2018 12:[address] [facility] HPV REQUEST HPV and PAP 02/16/2018 12:[address] [facility] Menstrual Status 02/16/2018 12:[address] [facility] Automated Review Successful 02/16/2018 12:[address] [facility] Comment:Specimen processed s uccessfully by automated high school home economics teacher device, ThinPrep Imaging System, [employer] ANCILLARY TESTING AVIATION TECHNICIAN AIRCRAFT HPV Ordered, Please see separate report 02/16/2018 12:24 PM CDT [facility] Note The pap test is a screening technique, not a diagnostic procedure. ??It is used primarily to screen for squamous cancers and precursor lesions. ??Published studies have shown that it is subject to both false negative and false positive results. ??The pap test should not be used as the sole means to diagnose or exclude pre-malignant and malignant lesions. Interpreted at [facility] ([facility], [facility], [facility], [facility], [facility], [facility], [facility]) 02/16/2018 12:24 PM CDT [facility] Other (Cervical/Vagina l) 02/06/2018 3:30 PM CDT 02/08/2018 4:08 PM CDT June Berumen MD PATHOLOGY/CYTOLOG Y [facility] [address] [place] [address], * ANTI HCV (04/24/2012 11:46 AM CDT) ANTI HCV Non-reacti ve [facility] Blood specimen (specimen) BLOOD SPECIMEN / Unknown 04/24/2012 11:46 AM CDT 04/24/2012 11:41 AM CDT [facility] EXPERIMENTAL MECHANIC SPACECRAFT SEND OUTS [facility] INTERNAL ZIP [address] [place] [address] * ANTI HIV 1/2 (04/24/2012 11:46 AM CDT) ANTI HIV 1/2 Non-reacti ve [facility] Blood specimen (specimen) BLOOD SPECIMEN / Unknown 04/24/2012 11:46 AM CDT 04/24/2012 11:41 AM CDT Nem[facility] [employer] EXPERIMENTAL MECHANIC SPACECRAFT SEND OUTS [facility] INTERNAL ZIP [address] [address] [place] [address] from Last 3 Months or Most Recently Relevant to Health Maintenance Care Teams Other Sales Support Worker Relationship Specialty Start Date End Date Gladis Frye DO [address] [place] [address] PCP - General Family Practice 08/04/17
--- OUTSIDE RECORDS SUMMARY | 2024-05-04 09:55 | XMS_ITS | Encounter Summary ---
Author Organization [facility] Address [address] [place] [address] Care Team Providers Care Timber Trimmer Name Role Phone Lela Tolbert MD Primary Care Provider [phone] Encounter Details Date Type Department Care Team (Late st Contact Info) Description 06/02/1999 Orders Only [facility] Tamiko Dowd MD Social History Tobacco Use Types Packs/Day Years Used Date Smoking Tobacco: Never Assessed Sex and Gender Information Value Date Recorded Sex Assigned at Not on file Gender Identity Not on file Sexual Orientation Not on file documented as of this encounter Plan of Treatment Not on file documented as of this encounter Visit Diagnoses Not on filedocumented in this encounter Care Teams Timber Trimmer Relationship Specialty Start Date End Date Lela Tolbert MD [address] [place] [address] PCP - General Family Practice 08/27/13 documented as of this encounter
--- OUTSIDE RECORDS SUMMARY | 2024-05-04 09:55 | XMS_ITS | Encounter Summary ---
Author Organization [facility] Address [address] [place] [address] Care Team Providers Care Precision Machine Operator Name Role Phone Lela Tolbert MD Primary Care Provider [phone] Encounter Details Date Type Department Care Team (Late st Contact Info) Description 06/15/1999 Orders Only [facility] Sid [...] on filedocumented in this encounter Care Teams Precision Machine Operator Relationship Specialty Start Date End Date Lela Tolbert MD [address] [place] [address] PCP - General Family Practice 08/27/13 documented as of this encounter
--- OUTSIDE RECORDS SUMMARY | 2024-05-04 09:55 | XMS_ITS | Encounter Summary ---
Author Organization [facility] Address [address] [place] [address] Care Team Providers Care Retail And Restaurant Name Role Phone Lela Tolbert MD Primary Care Provider [phone] Encounter Details Date Type Department Care Team (Late st Contact Info) Description 06/08/1999 Orders Only [facility] [address] [place] [place] [id number] Social History Tobacco Use Types Packs/Day Years Used Date Smoking Tobacco: Never Assessed Sex and Gender Information Value Date Recorded Sex Assigned at Not on file Gender Identity Not on file Sexual Orientation Not on file documented as of this encounter Plan of Treatment Not on file documented as of this encounter Visit Diagnoses Not on filedocumented in this encounter Care Teams Retail And Restaurant Relationship Specialty Start Date End Date Lela Tolbert MD [address] [place] [id number] PCP - General Family Practice 08/27/13 documented as of this encounter
--- OUTSIDE RECORDS SUMMARY | 2024-05-04 09:55 | XMS_ITS | Encounter Summary ---
Author Organization [facility] Address [address] [place] [address] Care Team Providers Care Brake Rider Name Role Phone Lela Tolbert MD Primary Care Provider [phone] Encounter Details Date Type Department Care Team (Latest Contact Info) Description 12/01/1996 Orders Only [facility] Social [...] on filedocumented in this encounter Care Teams Brake Rider Relationship Specialty Start Date End Date Lela Tolbert MD [address] [place] [address] PCP - General Family Practice 08/27/13 documented as of this encounter
--- OUTSIDE RECORDS SUMMARY | 2024-05-04 09:55 | XMS_ITS | Clinical Summary ---
Author Organization [facility] Address [address] [place] [address] Care Team Providers Care Land Acquisition Manager Name Role Phone Lela Tolbert MD Primary Care Provider [phone] Source Comments You are receiving this document as you are listed as the primary care provider,follow-up provider, or the patient has been referred to you for consultation.This is in compliance with the Medicare and[facility] EHR Incentive Program,which states Providers who transition their patient to another setting of careor provider of care or refers their patient to another provider of care shouldprovide summary care record for each transition of care or referral. [facility] Allergies No known active allergies Medications Medication Sig Dispensed Refills Start Date End Date Status ARIPiprazole (ABILIFY) 2 MG tablet Take 1 Tablet (2 mg) by mouth daily at bedtime. 09/28/2022 Active hydrOXYzine HCl (ATARAX) 25 MG tablet Take 1-3 Tablets (25-75 mg) by mouth at bedtime as needed. 09/29/2022 Active venlafaxine (EFFEXORXR) 150 MG 24 hour release capsule Take 1 Capsule (150 mg) by mouth daily. 09/29/2022 Active zolpidem (AMBIEN) 5 MG tablet Take 1 Tablet (5 mg) by mouth at bedtime as needed. 09/28/2022 Active traZODone (DESYREL) 50 MG tablet Take 0.5-2 Tablets (25-100 mg) by mouth daily at bedtime. 09/28/2022 Active Phentermine HCl (ADIPEX-P) 37.5 MG tablet Take 1 Tablet (37.5 mg) by mouth daily. 06/12/2022 Active HYDROcodone-acetamino phen (NORCO) 5-325 MG tablet Take 1 Tablet by mouth every 6 hours as needed. 10 Tablet 10/18/2022 Active Active Problems Problem Noted Date Diagnosed Date Bilateral carpal tunnel syndrome 08/31/2022 Overview: Added automatically from request for surgery [id number] Carpal tunnel syndrome on left 06/29/2022 Overview: Added automatically from request for surgery [id number] Immunizations Name Administration Dates Next Due DTP 04/30/1994,,1989,1989 ,1989 HepB Ped/Adol (0-18 yrs) 02/05/2000,09/04/1999,0 07/30/1999 Hib (HbOC) 10/20/1990 MMR 07/30/1999,10/20/1990 OPV, Trivalent (Orimune or tOPV) 04/30/1994,04/08,1989,1989 Tdap 05/14/2010 Varicella 08/03/1999(Deferred: Immune by Jesenia alston) Social History Tobacco Use Types Packs/Day Years Used Date Smoking Tobacco: Former Cigarettes Q uit: 05/07/2013 Smokeless Tobacco: Never Alcohol Use Standard Drinks/Week Comments Yes 0 (1 standard drink = 0.6 oz pur e alcohol) Rare PHQ-2 Answer Date Recorded PHQ-2 Score 2 10/12/2022 Sex and Gender Information Value Date Recorded Sex Assigned at Not on file Gender Identity Not on file Sexual Orientation Not on file Last Filed Vital Signs Vital Sign Reading Time Taken Comments Blood Pressure 118/69 10/18/2022 9:00 AM VP D[employer]ET[employer] Pulse 111 10/18/2022 9:00 AM VP [employer] Temperature 36.5 ??C (97.7 ??F) 10/18/2022 8:49 AM CS T Respiratory Rate 16 10/18/2022 9:00 AM VP [employer] Oxygen Saturation 97% 10/18/2022 9:00 AM VP [employer] Inhaled Oxygen Concentration - - Weight 66.7 kg (147 lb) 10/12/2022 2:15 PM VP [employer] Height 154.9 cm (5' 1) 06/29/2022 8:24 AM CDT Body Mass Index 27.78 06/29/2022 8:24 AM CDT Plan of Treatment Health Maintenance Due Date Last Done Comments Adult Preventive Visit 2007 07/30/1999, 1993 Cervical Cancer Screening Due 05/31/2013 05/30/2013 COVID-19 Vaccine ( season) 2023 Influenza (Season Ended) 2024 08/19/2020, 07/2019 DTaP/Tdap/Td (9 - Tdap) 06/15/2029 06/15/20, 05/30/2018, 05/14/2010, Additional history exists Zoster/Shingles (1 of 2) 2039 Hib Completed 10/20/1990 IPV (Polio) Completed 04/30/1994, 04/08, 1989, Additional history exists HepB Completed 02/05/2000, 08/08, 07/30/1999 HIV Screening (Preventive Services) Completed 04/24/2012 (Completed) Hep C Screening (Preventive Services) Completed 04/24/2021 (Completed) HPV Vaccine Aged Out No longer eligi ble based on patient's age to complete this topic HepA Aged Out No longer eligi ble based on patient's age to complete this topic MCV4 Aged Out No longer eligi ble based on patient's age to complete this topic Pneumococcal Aged Out No longer eligi ble based on patient's age to complete this topic Advance Directives * Full Code (Latest Code Status on File) Date Activated Date Inactivated Comments 10/18/2022 7:41 AM 10/18/2022 11:53 AM * Full Code Date Activated Date Inactivated Comments 07/19/2022 7:50 AM 07/19/2022 12:34 PM Care Teams Land Acquisition Manager Relationship Specialty Start Date End Date Lela Tolbert MD [address] [place] [address] PCP - General Family Practice 08/27/13
--- OUTSIDE RECORDS SUMMARY | 2024-05-04 09:55 | XMS_ITS | Encounter Summary ---
Author Organization [facility] Address [address] [place] [address] Care Team Providers Care Farmworker Dairy Name Role Phone Lela Tolbert MD Primary Care Provider [phone] Encounter Details Date Type Department Care Team (Latest Contact Info) Description 03/24/1997 Orders Only [facility] Social [...] on filedocumented in this encounter Care Teams Farmworker Dairy Relationship Specialty Start Date End Date Lela Tolbert MD [address] [place] [address] PCP - General Family Practice 08/27/13 documented as of this encounter
[2024-05-04 14:24] LABS: Chlamydia DNA Amplified* NOT DETECTED (No Detected); GC DNA Amplified* NOT DETECTED (No Detected)
== END 2024-05-04 09:54 | disposition home or self-care (01) ==
LOC: NFLDREF 09:54
PROVIDERS: PCP Family Medicine; Visit Provider Registered Nurse
DX: N89.8 Other specified noninflammatory disorders of vagina (principal); R30.0 Dysuria
CPT/HCPCS: 87086; 87186; 87491; 87591

== ENCOUNTER 2024-05-23 14:56 | Outpatient (CLI) | payer OTHER, SELFPAY ==
--- OUTSIDE RECORDS SUMMARY | 2024-05-23 15:05 | XMS_ITS | Encounter Summary ---
Author Organization [facility] Address [address] [place] [address] Care Team Providers Care Oil Field Technician Name Role Phone Lela Tolbert MD Primary Care Provider [phone] Encounter Details Date Type Department Care Team [...] on filedocumented in this encounter Care Teams Oil Field Technician Relationship Specialty Start Date End Date Lela Tolbert MD [address] [place] [address] PCP - General Family Practice 08/27/13 documented as of this encounter
--- OUTSIDE RECORDS SUMMARY | 2024-05-23 15:05 | XMS_ITS | Encounter Summary ---
Author Organization [facility] Address [address] [place] [address] Care Team Providers Care Supervisor Clam Bed Name Role Phone Lela Tolbert MD Primary Care Provider [phone] Encounter Details Date Type Department Care Team [...] on filedocumented in this encounter Care Teams Supervisor Clam Bed Relationship Specialty Start Date End Date Lela Tolbert MD [address] [place] [address] PCP - General Family Practice 08/27/13 documented as of this encounter
--- OUTSIDE RECORDS SUMMARY | 2024-05-23 15:05 | XMS_ITS | Encounter Summary ---
Author Organization [facility] Address [address] [place] [address] Care Team Providers Care Liquid Chlorine Operator Name Role Phone Lela Tolbert MD Primary Care Provider [phone] Encounter Details Date Type Department Care Team [...] on filedocumented in this encounter Care Teams Liquid Chlorine Operator Relationship Specialty Start Date End Date Lela Tolbert MD [address] [place] [address] PCP - General Family Practice 08/27/13 documented as of this encounter
--- OUTSIDE RECORDS SUMMARY | 2024-05-23 15:05 | XMS_ITS | Clinical Summary ---
Author Organization [facility] Address [address] [place] [address] Care Team Providers Care Bagel Maker Name Role Phone Lela Tolbert MD Primary Care Provider [phone] Source Comments You are receiving this document as you are listed as the primary care provider,follow-up provider, or the patient has been referred to you for consultation.This is in compliance with the Medicare and[facility] EHR Incentive Program,which states Providers who transition their patient to another setting of careor provider of care or refers their patient to another provider of care shouldprovide summary care record for each transition of care or referral. [facility] Allergies No known active allergies Medications Medication [...] Overview: Added automatically from request for surgery [id number] Carpal tunnel syndrome on left 06/29/2022 Overview: Added automatically from request for surgery [id number] Immunizations Name Administration Dates Next Due DTP [...] Comments Blood Pressure 118/69 10/18/2022 9:00 AM RESEARCH TEST ENGINE EVALUATOR Pulse 111 10/18/2022 9:00 AM RESEARCH TEST ENGINE EVALUATOR Temperature 36.5 ??C (97.7 ??F) 10/18/2022 8:49 AM CS T Respiratory Rate 16 10/18/2022 9:00 AM RESEARCH TEST ENGINE EVALUATOR Oxygen Saturation 97% 10/18/2022 9:00 AM RESEARCH TEST ENGINE EVALUATOR Inhaled Oxygen Concentration - - Weight 66.7 kg (147 lb) 10/12/2022 2:15 PM RESEARCH TEST ENGINE EVALUATOR Height 154.9 cm (5' 1) 06/29/2022 8:24 AM CDT Body Mass Index 27.78 06/29/2022 8:24 AM CDT Plan of Treatment Health Maintenance Due Date Last Done Comments Adult Preventive Visit 2007 07/30/1999, 1993 Cervical Cancer Screening Due 05/31/2013 05/30/2013 COVID-19 Vaccine ( season) 2023 Influenza (#1) 2024 08/19/2020, 08/15/2019 DTaP/Tdap/Td (9 - Tdap) 06/15/2029 06/15/20 19, 05/30/2018, 05/14/2010, Additional history exists Zoster/Shingles (1 [...] 7:50 AM 07/19/2022 12:34 PM Care Teams Bagel Maker Relationship Specialty Start Date End Date Lela Tolbert MD [address] [place] [address] PCP - General Family Practice 08/27/13
--- OUTSIDE RECORDS SUMMARY | 2024-05-23 15:05 | XMS_ITS | Clinical Summary ---
Author Organization [facility] Address [place], [place] [address] Care Team Providers Care Ticket Counter Name Role Phone Gladis Frye DO Primary Care Provider Allergies No known active allergies Medications Medication Sig Dispensed Refills Start Date End Date Status [id number] ACID ORAL Take by mouth. Active metroNIDAZOLE [...] 155 cm (5' 1.02) 12/05/2017 5:07 PM CASSEROLE PREPARER Body Mass Index 31.15 12/05/2017 5:07 PM CASSEROLE PREPARER Plan of Treatment Health Maintenance Due Date [...] Procedure Name Priority Date/Time Associated Diagnosis Comments OIL BURNER SERVICER AND INSTALLER THIN PREP PAP SCREEN IMAGED Routine 02/06/2018 3:30 PM CDT ANTI HIV 1/2 Routine 04/24/2012 11:46 AM CDT Screen for STD (sexually transmitted disease) ANTI HCV Routine 04/24/2012 11:46 AM CDT Screen for STD (sexually transmitted disease) from Last 3 Months or Most Recently Relevant to Health Maintenance Results * OIL BURNER SERVICER AND INSTALLER THIN PREP PAP SCREEN IMAGED (02/06/2018 3:30 PM CDT) Case Report Gynecologic Cytology Report ? Case: [id number] ? Authorizing Provider: ??June Berumen MD ? Collected: ? 02/06/2018 1530 ? First Screen: ?Debbie Huddleston ?Received: ?02/08/2018 1608 ? Specimen: ?OIL BURNER SERVICER AND INSTALLER ThinPrep Vial Screening, Cervical/Vaginal ? 02/16/2018 12:24 PM CDT [facility] INTERPRETATION/ RESULT NEGATIVE FOR INTRAEPITHELIAL LESION OR MALIGNANCY (NIL) (none) 02/16/2018 12:24 PM CDT [facility] IMEN ADEQUACY Satisfactory for evaluation No endocervical component seen in a patient 02/16/2018 12:24 PM CDT [facility] HPV REQUEST HPV and PAP 02/16/2018 12:24 PM CDT [facility] Menstrual Status 02/16/2018 12:24 PM CDT [facility] Automated Review Successful 02/16/2018 12:24 PM CDT [facility] Comment:Specimen processed s uccessfully by automated oil well drilling manager device, ThinPrep Imaging System, [employer] ANCILLARY TESTING OIL BURNER SERVICER AND INSTALLER HPV Ordered, Please see separate report 02/16/2018 12:24 PM CDT [facility] Note The pap test is a screening technique, not a diagnostic procedure. ??It is used primarily to screen for squamous cancers and precursor lesions. ??Published studies have shown that it is subject to both false negative and false positive results. ??The pap test should not be used as the sole means to diagnose or exclude pre-malignant and malignant lesions. Interpreted at [facility] (Central Lab, [facility], [facility], [facility], [facility], [facility], [facility]) 02/16/2018 12:24 PM CDT [facility] Other (Cervical/Vagina l) 02/06/2018 3:30 PM CDT 02/08/2018 4:08 PM CDT June Berumen MD PATHOLOGY/CYTOLOG Y [facility] [address] [place] [address], * ANTI HCV (04/24/2012 11:46 AM CDT) ANTI HCV Non-reacti ve [facility] Blood specimen (specimen) BLOOD SPECIMEN / Unknown 04/24/2012 11:46 AM CDT 04/24/2012 11:41 AM CDT Nemo Schwartz PHYSICIAN OPHTHALMOLOGIST SEND OUTS [facility] INTERNAL ZIP [id number] [place] [address] * ANTI HIV 1/2 (04/24/2012 11:46 AM CDT) ANTI HIV 1/2 Non-reacti ve [facility] Blood specimen (specimen) BLOOD SPECIMEN / Unknown 04/24/2012 11:46 AM CDT 04/24/2012 11:41 AM CDT Nemo Schwartz PHYSICIAN OPHTHALMOLOGIST SEND OUTS [facility] INTERNAL ZIP [id number] [address] [place] [address] from Last 3 Months or Most Recently Relevant to Health Maintenance Care Teams Ticket Counter Relationship Specialty Start Date End Date Gladis Frye DO [address] [place] [address] PCP - General Family Practice 08/04/17
--- OUTSIDE RECORDS SUMMARY | 2024-05-23 15:05 | XMS_ITS | Encounter Summary ---
Author Organization [facility] Address [address] [place] [address] Care Team Providers Care District Court Judge Name Role Phone Lela Tolbert MD Primary Care Provider [phone] Encounter Details Date Type Department Care Team [...] on filedocumented in this encounter Care Teams District Court Judge Relationship Specialty Start Date End Date Lela Tolbert MD [address] [place] [address] PCP - General Family Practice 08/27/13 documented as of this encounter
--- OUTSIDE RECORDS SUMMARY | 2024-05-23 15:05 | XMS_ITS | Encounter Summary ---
Author [facility] Address [address] [place] [address] Care Team Providers Care Tooth Cutter Name Role Phone Llea Tolbert MD Primary Care Provider [phone] Encounter Details Date Type Department Care Team (Late st Contact Info) Description 06/08/1999 Orders Only [facility] [address] [address] [place] [id number] Social History Tobacco Use Types Packs/Day Years Used Date Smoking Tobacco: Never Assessed Sex and Gender Information Value Date Recorded Sex Assigned at Not on file Gender Identity Not on file Sexual Orientation Not on file documented as of this encounter Plan of Treatment Not on file documented as of this encounter Visit Diagnoses Not on filedocumented in this encounter Care Teams Tooth Cutter Relationship Specialty Start Date End Date Lela Tolbert MD [address] [place] [id number] PCP - General Family Practice 08/27/13 documented as of this encounter
[2024-05-24 09:06] LABS: Chlamydia DNA Amplified* NOT DETECTED (No Detected); GC DNA Amplified* NOT DETECTED (No Detected)
== END 2024-05-23 14:57 | disposition home or self-care (01) ==
PROVIDERS: PCP Family Medicine; Visit Provider Registered Nurse
DX: N89.8 Other specified noninflammatory disorders of vagina (principal)
CPT/HCPCS: 86694; 87086; 87491; 87591

== ENCOUNTER 2024-08-17 18:10 | Outpatient (CLI) | payer OTHER, SELFPAY ==
--- OUTSIDE RECORDS SUMMARY | 2024-08-18 17:28 | XMS_ITS | Encounter Summary ---
Author Organization [facility] Address [address] [place] [address] Care Team Providers Care State Appellate Clerk Name Role Phone Lela Tolbert MD Primary Care Provider [phone] Encounter Details Date Type Department Care Team (Late st Contact Info) Description 06/08/1999 Orders Only [facility] [address] [address] [place] [id number] Social History Tobacco Use Types Packs/Day Years Used Date Smoking Tobacco: Never Assessed Sex and Gender Information Value Date Recorded Sex Assigned at Not on file Gender Identity Not on file Sexual Orientation Not on file documented as of this encounter Plan of Treatment Not on file documented as of this encounter Visit Diagnoses Not on filedocumented in this encounter Care Teams State Appellate Clerk Relationship Specialty Start Date End Date Lela Tolbert MD [address] [place] [id number] PCP - General Family Practice 08/27/13 documented as of this encounter
--- OUTSIDE RECORDS SUMMARY | 2024-08-18 17:28 | XMS_ITS | Encounter Summary ---
Author Organization [facility] Address [address] [place] [address] Care Team Providers Care Loan Reviewer Name Role Phone Lela Tolbert MD Primary Care Provider [phone] Encounter Details Date Type Department Care Team [...] on filedocumented in this encounter Care Teams Loan Reviewer Relationship Specialty Start Date End Date Lela Tolbert MD [address] [place] [address] PCP - General Family Practice 08/27/13 documented as of this encounter
--- OUTSIDE RECORDS SUMMARY | 2024-08-18 17:28 | XMS_ITS | Clinical Summary ---
Author Organization [facility] Address [address] [place] [address] Care Team Providers Care Bow Rehairer Name Role Phone Lela Tolbert MD Primary Care Provider [phone] Source Comments You are receiving this document as you are listed as the primary care provider,follow-up provider, or the patient has been referred to you for consultation.This is in compliance with the Medicare and[facility] EHR Incentive Program,which states Providers who transition their patient to another setting of careor provider of care or refers their patient to another provider of care shouldprovide summary care record for each transition of care or referral. [facility] Allergies No known active allergies Medications Medication [...] Diagnosed Date Bilateral carpal tunnel syndrome 08/31/2022 Overview (08/31/2022): Added automatically from request for surgery [id number] Carpal tunnel syndrome on left 06/29/2022 Overview (06/29/2022): Added automatically from request for surgery [id number] Immunizations Name Administration Dates Next Due DTP [...] Comments Blood Pressure 118/69 10/18/2022 9:00 AM DIRECTOR FOOD AND BEVERAGE Pulse 111 10/18/2022 9:00 AM DIRECTOR FOOD AND BEVERAGE Temperature 36.5 ??C (97.7 ??F) 10/18/2022 8:49 AM CS T Respiratory Rate 16 10/18/2022 9:00 AM DIRECTOR FOOD AND BEVERAGE Oxygen Saturation 97% 10/18/2022 9:00 AM DIRECTOR FOOD AND BEVERAGE Inhaled Oxygen Concentration - - Weight 66.7 kg (147 lb) 10/12/2022 2:15 PM DIRECTOR FOOD AND BEVERAGE Height 154.9 cm (5' 1) 06/29/2022 8:24 AM CDT Body Mass Index 27.78 06/29/2022 8:24 AM CDT Plan of Treatment Health Maintenance Due Date Last Done Comments Adult Preventive Visit 2007 07/30/1999, 1993 Cervical Cancer Screening Due 05/31/2013 05/30/2013 COVID-19 Vaccine ( season) 2024 Influenza (#1) 2024 08/19/2020, 08/15/2019 DTaP/Tdap/Td (9 - Tdap) 06/15/2029 06/15/20, 05/30/2018, [...] on patient's age to complete this topic Infant RSV Aged Out No longer eligi ble based [...] 7:50 AM 07/19/2022 12:34 PM Care Teams Bow Rehairer Relationship Specialty Start Date End Date Lela Tolbert MD [address] [place] [address] PCP - General Family Practice 08/27/13
--- OUTSIDE RECORDS SUMMARY | 2024-08-18 17:28 | XMS_ITS | Encounter Summary ---
Author Organization [facility] Address [address] [place] [address] Care Team Providers Care Marine Pipefitter Helper Name Role Phone Lela Tolbert MD Primary Care Provider [phone] Encounter Details Date Type Department Care Team [...] on filedocumented in this encounter Care Teams Marine Pipefitter Helper Relationship Specialty Start Date End Date Lela Tolbert MD [address] [place] [address] PCP - General Family Practice 08/27/13 documented as of this encounter
--- OUTSIDE RECORDS SUMMARY | 2024-08-18 17:28 | XMS_ITS | Encounter Summary ---
Author Organization [facility] Address [address] [place] [address] Care Team Providers Care Instrument And Control Technician Name Role Phone Lela Tolbert MD Primary Care Provider [phone] Encounter Details Date Type Department Care Team [...] on filedocumented in this encounter Care Teams Instrument And Control Technician Relationship Specialty Start Date End Date Lela Tolbert MD [address] [place] [address] PCP - General Family Practice 08/27/13 documented as of this encounter
--- OUTSIDE RECORDS SUMMARY | 2024-08-18 17:28 | XMS_ITS | Clinical Summary ---
Author Organization [facility] Address [place], [place] [address] Care Team Providers Care Wheat Shipper Name Role Phone Gladis Frye DO Primary Care Provider Allergies No known active allergies Medications Medication Sig Dispensed Refills Start Date End Date Status [id number] ACID ORAL Take by mouth. Active metroNIDAZOLE (FLAGYL) 500 mg tablet TK 1 T PO BID 0 06/28/2019 Active Active Problems Problem Noted Date Diagnosed Date Unspecified hearing loss 01/21/2011 Overview (01/21/2011): Wears hearing aids Elevated TSH 12/26/2008 Depression [...] 155 cm (5' 1.02) 12/05/2017 5:07 PM LIFE INSURANCE AGENT Body Mass Index 31.15 12/05/2017 5:07 PM LIFE INSURANCE AGENT Plan of Treatment Health Maintenance Due Date Last Done Comments Depression screening for age 12+ 08/25/2018 08/25/2017, 07/12/2017, 08/17/2016, Additional history exists BMI (ht and wt on same day) for age 18+ 12/05/2018 12/05/2017, 08/25/2017, 03/08/2017, Additional history exists Tetanus booster 05/14/2020 05/14/2010 Pap test for age 21-65 02/06/2021 8, 02/06/2018, 06/24/2015, Additional history exists COVID-19 vaccine series ( - 2023- season) 2024 Influenza for age 9-49 07/08/2024 RSV vaccine for adults or (1 - 1-dose 75+ series) 2064 Tdap Completed 05/14/2010 HIV for age 15-65 Completed 04/24/2012, , 04/27/2011, Additional history exists Hepatitis C screening for age 18-79 Completed 04/24/2012, 05/14/2010 Pneumococcal series for age 6-64 Aged Out No longer eligible based on patient's age to complete this topic Procedures Procedure Name Priority Date/Time Associated Diagnosis Comments CNC MANAGER THIN PREP PAP SCREEN IMAGED Routine 02/06/2018 3:30 PM CDT ANTI HIV 1/2 Routine 04/24/2012 11:46 AM CDT Screen for STD (sexually transmitted disease) ANTI HCV Routine 04/24/2012 11:46 AM CDT Screen for STD (sexually transmitted disease) from Last 3 Months or Most Recently Relevant to Health Maintenance Results * CNC MANAGER THIN PREP PAP SCREEN IMAGED (02/06/2018 3:30 PM CDT) Case Report Gynecologic Cytology Report ? Case: [id number] ? Authorizing Provider: ??June Berumen MD ? Collected: ? 02/06/2018 1530 ? First Screen: ?Debbie Huddleston ?Received: ?02/08/2018 1608 ? Specimen: ?CNC MANAGER ThinPrep Vial Screening, Cervical/Vaginal ? 02/16/2018 12:24 PM CDT [facility] INTERPRETATION/ RESULT NEGATIVE FOR INTRAEPITHELIAL LESION OR MALIGNANCY (NIL) (none) 02/16/2018 12:24 PM CDT [facility] IMEN ADEQUACY Satisfactory for evaluation No endocervical component seen in a patient 02/16/2018 12:24 PM CDT [facility] HPV REQUEST HPV and PAP 02/16/2018 12:24 PM CDT [facility] Menstrual Status 02/16/2018 12:24 PM CDT [facility] Automated Review Successful 02/16/2018 12:24 PM CDT [facility] Comment:Specimen processed s uccessfully by automated physiology teacher device, [employer] StudiosPrep Imaging System, [employer] ANCILLARY TESTING CNC MANAGER HPV Ordered, Please see separate report 02/16/2018 12:24 PM CDT [facility] Note The pap test is a screening technique, not a diagnostic procedure. ??It is used primarily to screen for squamous cancers and precursor lesions. ??Published studies have shown that it is subject to both false negative and false positive results. ??The pap test should not be used as the sole means to diagnose or exclude pre-malignant and malignant lesions. Interpreted at [facility] ([facility] Lab, [facility], [facility], [facility], [facility], [facility], [facility]) 02/16/2018 12:24 PM CDT [facility] Other (Cervical/Vagina l) 02/06/2018 3:30 PM CDT 02/08/2018 4:08 PM CDT June Berumen MD PATHOLOG[facility]OLOG Y [facility] [address] [place] [address], [place] * ANTI HCV (04/24/2012 11:46 AM CDT) ANTI HCV Non-reacti ve [facility] Blood specimen (specimen) BLOOD SPECIMEN / Unknown 04/24/2012 11:46 AM CDT 04/24/2012 11:41 AM CDT Nemo Bibi Schwartz MANAGER OF HUMAN RESOURCES SEND OUTS [facility] INTERNAL ZIP [phone] [place] [address] * ANTI HIV 1/2 (04/24/2012 11:46 AM CDT) ANTI HIV 1/2 Non-reacti ve [facility] Blood specimen (specimen) BLOOD SPECIMEN / Unknown 04/24/2012 11:46 AM CDT 04/24/2012 11:41 AM CDT Nemojannet Mtz Schwartz MANAGER OF HUMAN RESOURCES SEND OUTS [facility] [place] ZIP [address] [address] [place] [address] from Last 3 Months or Most Recently Relevant to Health Maintenance Care Teams Wheat Shipper Relationship Specialty Start Date End Date Gladis Frye DO [address] [place] [address] PCP - General Family Practice 08/04/17
--- OUTSIDE RECORDS SUMMARY | 2024-08-18 17:28 | XMS_ITS | Encounter Summary ---
Author Organization [facility] Address [address] [place] [address] Care Team Providers Care Valuation Manager Name Role Phone Lela Tolbert MD Primary Care Provider [phone] Encounter Details Date Type Department Care Team [...] on filedocumented in this encounter Care Teams Valuation Manager Relationship Specialty Start Date End Date Lela Tolbert MD [address] [place] [address] PCP - General Family Practice 08/27/13 documented as of this encounter
== END 2024-08-17 18:11 | disposition home or self-care (01) ==
LOC: NFLDREF 08-18 17:26
PROVIDERS: Visit Provider Physician Assistant
DX: Z11.3 Encounter for screening for infections with a predominantly sexual mode of transmission (principal)
CPT/HCPCS: 87491; 87591